=== PATIENT | female | born 1945 | race Caucasian/White ===

== ENCOUNTER 2018-08-23 14:12 | Emergency (ER) | payer MEDICARE, SELFPAY ==
[2018-08-23 14:13] VITALS: BP 176/89; PULSE 112; RESP 16; TEMP 37.2; O2SAT 98; BMI 43.9
--- NOTE | 2018-08-23 15:26 | ED.VISSUMM ---
- ER Visit Summary Date of Service: 08/23/18 Chief Complaint: Atraumatic left proximal medial calf swelling and discomfort History of Present Illness: The patient is a 73 F currently on Plavix for CAD and cardiac stents. She is a diet-controlled diabetic with stage III renal insufficiency. Patient states for the last 2 days she has had discomfort in her left calf and swelling. She denies any fever or chills. She denies any redness. She has had no trauma. She is never had a DVT or PE. She denies any recent travel, surgery or immobilization. States that she is not very active due to degenerative knee arthritis. Physical Examination: Older female no acute distress. Family present in the room. Pulse ox 90% on room air. No hypoxia. H EENT exam unremarkable. Neck nontender. Lungs clear to auscultation bilaterally. Heart regular rhythm rate about 100 no murmur. Abdomen is soft and nontender. She is moving all 4 extremities. She has normal motor strength. She has chronic decreased sensation in her feet from diabetic neuropathies. Her left proximal medial calf is mildly swollen with edematous tissue. There is no redness. There is no warmth. It is not significantly tender. There is no signs of cellulitis. There is no lymphangitic streaking. The knee itself is nontender. The left ankle is nontender. There are no cords. Right lower extremity is unremarkable. The left lower extremity is larger than the right. Neurologically she is awake and alert with no focal motor deficits. Test Results: Patient needs a noninvasive study of her left lower extremity. I have unable to obtain that at this time. She will be set up to have that done tomorrow morning. She is currently on Plavix I do not want to add any other anticoagulation as I feel that the likelihood of this being a DVT is as likely as it being hematoma or edema. Also the swelling is below the knee. Emergency Department Course and Treatment: Follow-up tomorrow for outpatient noninvasive study of the left lower extremity to evaluate for possible DVT versus other etiology. Treatment Plan: Continue her current medications including her Plavix. I do not want to start on any other anticoagulation until we have a definitive diagnosis. Disposition: Discharge Impression: Acute left lower extremity swelling of uncertain etiology Rule out DVT pending noninvasive study on Friday History of diet-controlled diabetes, coronary disease and stage III renal insufficiency This note was generated with Dragon dictation software. It may contain incorrect words, spelling, and punctuation that were not noted in review of the chart prior to signing ED Disposition - Plan for ED Patient: Chief Complaint: Lower Extremity Injury Referrals: Rocío Art MD [Primary Care Provider] -
--- NOTE | 2018-08-23 15:32 | ED.DEP ---
ED Disposition - Plan for ED Patient: Disposition: Home or Assisted Living Chief Complaint: Lower Extremity Injury Instructions: ED DVT Referrals: Rocío Art MD [Primary Care Provider] - As Needed Additional Instructions: Vascular lab will call you in the morning to set up time to have a noninvasive study (ultrasound) of your left lower extremity tomorrow morning to evaluate your leg for possible DVT. This could also be secondary to a bruise or just fluid collection. Continue your current medications including her Plavix. Return if you develop chest pain or severe shortness of breath.
--- NOTE | 2018-08-23 15:54 | ED.RN ---
attempted to call pt for dc instructions. no answer
== END 2018-08-23 15:53 | disposition home or self-care (01) ==
PROVIDERS: Emergency Provider Emergency Medicine; Family Provider Internal Medicine; PCP Internal Medicine
DX: R60.0 Localized edema (principal); M79.662 Pain in left lower leg; E11.22 Type 2 diabetes mellitus with diabetic chronic kidney disease; I12.9 Hypertensive chronic kidney disease with stage 1 through stage 4 chronic kidney disease, or unspecified chronic kidney disease; N18.3 Chronic kidney disease, stage 3 (moderate); I25.10 Atherosclerotic heart disease of native coronary artery without angina pectoris; E11.40 Type 2 diabetes mellitus with diabetic neuropathy, unspecified; M10.9 Gout, unspecified; I25.2 Old myocardial infarction; Z95.5 Presence of coronary angioplasty implant and graft; Z79.02 Long term (current) use of antithrombotics/antiplatelets; Z79.82 Long term (current) use of aspirin; Z79.899 Other long term (current) drug therapy
CPT/HCPCS: 99282

== ENCOUNTER → 2018-08-24 10:59 | Outpatient (CLI) | payer MEDICARE, SELFPAY ==
--- NOTE | 2018-08-24 11:02 | VDLE_ITS ---
Reason For Study: LEG SWELLING RIGHT LEFT CFV is compressible, spontaneous, phasic, GSV is normal. competent and demonstrates normal CFV is compressible, spontaneous, phasic, augmentation. competent, and demonstrates normal Procedure augmentation. Exam performed in department. FV is compressible, spontaneous, phasic, Technically difficult due to body habitus. competent and demonstrates normal A preliminary report was called and/or faxed augmentation. to Dr. Art. POP V is compressible, spontaneous, phasic, competent and demonstrates normal augmentation. T/P Trunk is compressible. PTV is compressible. Heterogenous structure noted lt medial pop space extending to prox calf. Non-vascular. Measures 4.9 x 2.4 cm in transverse view. Interpretation Summary Left greater saphenous vein appears patent and compressible segmentally. There is no evidence of left lower extremity deep vein thrombosis. Left popliteal space 4.86 x 2.41cm structure without vascular flow Clinical correlation would be appropriate Normal flow right common femoral vein Ordering Physician: Juan Miguel Caputo Referring Physician: Rocío Art Performed By: Kira Vazquez RVT
== END ==
PROVIDERS: Family Provider Internal Medicine; PCP Internal Medicine; Referring Provider Emergency Medicine; Visit Provider Emergency Medicine
DX: M79.89 Other specified soft tissue disorders (principal)
CPT/HCPCS: 93971

== ENCOUNTER → 2018-09-03 09:34 | Outpatient (CLI) | payer MEDICARE, SELFPAY ==
--- NOTE | 2018-09-03 09:38 | US_ITS ---
STUDY: SUPERFICIAL ULTRASOUND - LEFT MEDIAL CALF. REASON FOR EXAM: Female, 73 years old. Mass or lump. TECHNIQUE: A superficial ultrasound was performed with real-time and static roger-scale imaging. # of Images: 40 COMPARISON: None. FINDINGS: Ultrasound in the area of clinical concern shows a relatively anechoic focal area with some internal echoes, measuring 13.0 x 6.4 x 3.0 cm. The ultrasound appearance is nonspecific. Seroma is a possibility. A dissecting popliteal cyst is a possibility. Abscess is not excluded but unlikely. Consider MRI for further evaluation. Electronically Signed: Grady Vieira MD at 17:08 EDT , Service support , US/Ext Non Vasc Limited/Soft Tiss
== END ==
PROVIDERS: Family Provider Internal Medicine; PCP Internal Medicine; Referring Provider Nurse Practitioner Primary Care; Visit Provider Nurse Practitioner Primary Care
DX: M79.605 Pain in left leg (principal); M79.89 Other specified soft tissue disorders
CPT/HCPCS: 76882

== ENCOUNTER 2019-01-01 09:27 | Observation (INO) | payer MEDICARE, SELFPAY ==
[2019-01-01] VITALS (11 sets, daily range): BP systolic 143–163; BP diastolic 76–86; PULSE 69–99; RESP 16–21; TEMP 36.6–36.9; O2SAT 94–100; BMI 40.3; BMI 38.7; BMI 38.8
--- NOTE | 2019-01-01 09:59 | CT_ITS ---
STUDY: CT BRAIN WITHOUT CONTRAST REASON FOR EXAM: Female, 73 years old. Dizziness. RADIATION DOSAGE (If Supplied By Facility): CTDIvol = ( 44.99 ) mGy, DLP = ( 812.98 ) mGycm TECHNIQUE: Transaxial CT imaging of the brain was performed without administration of intravenous contrast material. Multiplanar reformations are submitted for interpretation. Individualized dose optimization techniques were used for this CT. COMPARISON: None. FINDINGS: There are multiple punctate calcifications within the dermis of the face. Normal calvarium. There is mild cerebral atrophy with widening of the extra-axial spaces and ventricular dilatation. There are areas of decreased attenuation within the white matter tracts of the supratentorial brain, consistent with microvascular disease changes. There are small punctate calcifications of the basal ganglia which are seen in the aging brain as a normal variant. Normal brainstem. Normal cerebellum. There is no intracranial hemorrhage. There are no findings of an acute ischemic infarction. There is moderate mucoperiosteal thickening present in bilateral maxillary sinuses. There is opacification of several ethmoid sinuses. CT/Brain/Head without Contrast IMPRESSION: 1. Chronic involutional changes of the brain. 2. No CT evidence of acute intracranial hemorrhage. Electronically Signed: Daina Henderson MD at 11:10 EST , Service support ,
--- NOTE | 2019-01-01 10:00 | EKG12_ITS ---
Test Reason : DIZZINESS Blood Pressure : / mmHG Vent. Rate : 059 BPM Atrial Rate : 059 BPM P-R Int : 178 ms QRS Dur : 090 ms QT Int : 414 ms P-R-T Axes : 041 000 050 degrees QTc Int : 409 ms Sinus bradycardia Low voltage QRS Cannot rule out Inferior infarct , age undetermined Cannot rule out Anterior infarct , age undetermined Abnormal ECG Confirmed by DONYA MOELLER, LACHO ([id number]), book or script editor UMESH CHAVARRIA ([id number]) on 01/05/2019 11:34:33 AM Referred By: Kyree Montiel Confirmed By:LACHO NAQVI MD
[2019-01-01 10:11] LABS: Absolute Lymphocyte Count 1.31 X10^3/ul (0.83-4.51); Absolute Neutrophil Count 8.4 X10^3/uL (2.0-7.7); Basophil# 0.02 X10^3/uL; Basophil% 0.2 % (0-1); Eosinophil# 0.15 X10^3/uL; Eosinophils% 1.4 % (0-5); Hematocrit 35.4 % (37-47); Hemoglobin 11.5 g/dl (12.0-15.0); Lymphocyte # 1.31 X10^3/ul (4.0); Lymphocyte % 12.6 % (19-41); Mean Corp Hgb Conc 32.5 g/gl (32-36); Mean Corpuscular Hgb 32.4 pg (27.0-32.0); Mean Corpuscular Volume 99.7 fL (81-99); Mean Platelet Vol. 9.3 fl (6.2-12.0); Monocyte% 3.9 % (0-10); Neutrophil # 8.44 X10^3/uL (2.7-7.7); Neutrophil % 81.4 % (47-70); Platelet Count 205 K/mm3 (150-450); RBC Distribution Width CV 15.7 % (11.6-14.6); RBC Distribution Width SD 57.2 fl (35.1-43.9); Red Blood Count 3.55 M/mm3 (4.2-5.4); White Blood Count 10.4 K/mm3 (4.4-11.0)
[2019-01-01 10:12] LABS: POSITIVE COUNT NO; POSITIVE DIFFERENTIAL NO; POSITIVE MORPHOLOGY NO
[2019-01-01 10:21] LABS: Anion Gap 10 (5-15); BUN 26 mg/dL (7-18); BUN/Creat Ratio 18.7 RATIO (10-20); Calcium,Total 9.1 mg/dL (8.5-10.1); Chloride 104 mmol/L (98-107); Creatinine, Serum 1.39 mg/dL (0.55-1.02); EST Glomerular Filtration Rate 39 mL/min (>60); Est Glom Filt Rate - Afr Amer 48 mL/min (>60); Estimated Creatinine Clearance 32.74 ml/min; Glucose 167 mg/dL (74-106); Potassium 4.2 mmol/L (3.5-5.1); Sodium Level 139 mmol/L (136-145)
[2019-01-01] MEDS: 0.9% Normal Saline 1,000 ML 150 ML IV (10:26)
[2019-01-01] MEDS: diazePAM 2 MG Tablet PO (10:26)
--- NOTE | 2019-01-01 11:26 | PCM.HP.STD ---
Problem List (1) Dizziness Status: Acute (2) Essential hypertension Status: Chronic (3) Dyslipidemia Status: Chronic (4) Hypothyroidism Status: Chronic History of Present Illness Date of Admission: 01/01/19 Chief Complaint: Dizziness The patient is a 73 year old F with past medical history is again for hypertension, dyslipidemia, hypothyroidism who presented with dizziness. Patient symptoms started on the morning of her presentation. She woke up with her symptoms. She described her dizziness as spinning sensation. Patient in addition did complain of nausea she denied any falls. She finally called the squad was brought to the emergency department. In the ED CT of the head obtained was unremarkable with patient still remain asymptomatic decision was made to admit patient for subsequent evaluation in the hospital. Past Medical History Past Medical History (Chronic Problems): Chronic Problems Essential hypertension (Chronic) Dyslipidemia (Chronic) Hypothyroidism (Chronic) Allergies Penicillins Allergy (Verified 01/01/19 09:30) Swelling meperidine [From Demerol] Adverse Reaction (Verified 01/01/19 09:30) Vomiting SODIUM PENTATHAL Adverse Reaction (Uncoded 01/01/19 09:30) Vomiting Home Medications: Ambulatory Orders Medication Instructions Recorded Allopurinol [Zyloprim] 300 mg PO DAILY 08/12/16 Aspirin E.C. [Ecotrin] 81 mg PO DAILY@0800 08/12/16 Atorvastatin Calcium [Lipitor] 80 mg PO QHS 08/12/16 Clopidogrel Bisulfate [Plavix] 75 mg PO DAILY 08/12/16 Hydrochlorothiazide [Hctz] 25 mg PO DAILY 08/12/16 Levothyroxine [Synthroid] 125 mcg PO DAILY 08/12/16 Lisinopril [Zestril] 40 mg PO DAILY 08/12/16 Multivit-Min/Iron/Folic/Lutein 1 each PO DAILY 08/12/16 [Centrum Silver Women Tablet] Nitroglycerin [Nitrostat] 0.4 mg SUBLINGUAL Q5M PRN 08/12/16 Oxybutynin [Ditropan] 5 mg PO DAILY 08/12/16 Clindamycin [Cleocin] 150 mg PO UD 01/01/19 Metoprolol Succinate [Toprol Xl] 25 mg PO DAILY 01/01/19 [place]-3/Dha/Epa/Fish Oil [[place] 3 500 - 1,000 mg PO DAILY 01/01/19 500 Softgel] Ubidecarenone [Co Q-10] 75 mg PO DAILY 01/01/19 Smoking Status: Never smoker - *Family History Paternal History Items: Cancer - of colon cancer Review of Systems Constitutional: Denies: Anorexia, Chills, Fever, Night Sweats, Weight Change HEENT: Denies: Head Aches, Sinus Congestion, Sinus Drainage Cardiovascular: Denies: Chest Pain, Orthopnea, Palpitations, Paroxysmal Noc. Dyspnea Respiratory: Denies: Cough, Shortness of breath at rest, Shortness of breath upon exertion, Sputum production Gastrointestinal: Denies: Abdominal Pain, Hematemesis, Hematochezia, Nausea, Melena, Vomiting Genitourinary: Denies: Dysuria, Frequency, Hematuria, Urgency Musculoskeletal: Denies: Joint Pain, Joint Tenderness Skin: Denies: Rash Neurological: Reports: Balance problems. Denies: Focal weakness, Numbness, Tingling Psychiatric: Denies: Homicidal Ideations, Suicidal Ideations Hematologic/ Lymphatic: Denies: Easy Bruising, Easy Bleeding VTE Information - Inpt Only VTE Present on Admission: No VTE Mechan Device Prophylaxis: Knee High GILBERT Hose VTE Pharm Prophylaxis ordered?: Yes Patient Problems: Active and Suspected Problems Dizziness (Acute) Objective: GENERAL: Cooperative in no distress HEENT: Atraumatic; moist oral mucosa EYES; Anicteric, Normal Conjunctiva NECK; supple, normal thyroid, no distended JVD. RESPIRATORY: Diminished to auscultation bilaterally, CARDIOVASCULAR: Regular S1 S2, no audible murmurs GI: soft, non-tender, normoactive bowel sounds, : No Renal angle tenderness; EXTREMITIES: No edema, no clubbing, no cyanosis. MUSCULOSKELETAL: No Joint Tenderness; no muscle waisting NEURO: Awake; no lateralizing signs. SKIN: No Rash PSYCH; affect is flat - Physical Exam Vital Signs Temp Pulse Resp BP Pulse Ox 98.3 F 79 17 163/79 H 99 01/01/19 09:28 01/01/19 09:28 01/01/19 09:28 01/01/19 09:28 01/01/19 09:28 Oxygen Delivery Method Room Air Weight: 113.398 kg Body Mass Index (BMI) 40.3 Laboratory Tests Past 24 Hrs 01/01/19 01/01/19 09:45 09:45 WBC 10.4 RBC 3.55 L Hgb 11.5 L Hct 35.4 L MCV 99.7 H MCH 32.4 H MCHC 32.5 RDW 15.7 H RDW Differential 57.2 H Plt Count 205 MPV 9.3 Immature Gran % (Auto) 0.500 Neut % (Auto) 81.4 H Lymph % (Auto) 12.6 L [place] % (Auto) 3.9 Eos % (Auto) 1.4 Baso % (Auto) 0.2 Absolute Neuts (auto) 8.4 H Absolute Lymphs (auto) 1.31 Total Counted Not Reportable Sodium 139 Potassium 4.2 Chloride 104 Carbon Dioxide 25.0 Anion Gap 10 BUN 26 H Creatinine 1.39 H Estim Creat Clear Calc 32.74 Est GFR (MDRD) Af Amer 48 L Est GFR (MDRD) Non-Af 39 L BUN/Creatinine Ratio 18.7 Glucose 167 H Calcium 9.1 Troponin I < 0.015 Assessment/Plan All Active Problems Dizziness (Acute) Patient is a 73-year-old lady with multiple comorbidities presented with dizziness 1. Dizziness: Patient has been admitted to monitored bed. Did initiate every 4 neuro checks. Ordered MRI of the brain to rule out posterior seclusion CVA. Also did order 2D echo as well as carotid ultrasound; also did request orthostatics acute for 2. Renal failure patient baseline creatinine unknown started on IV fluids with monitoring of electrolyte 3. Hypothyroidism-patient is on levothyroxine home dose continued 4. Hypertension-blood pressure controlled, home medications continued with dose adjustment as needed 5. Dyslipidemia-patient is on statin therapy, continued at home dose 6. DVT prophylaxis SC Lovenox 7. Obesity with BMI of 38.8 weight loss advised Code Visit OBSV E&M: 98157 Initial observation care L3
--- NOTE | 2019-01-01 11:29 | ED.DCSUM_ITS ---
- ER Visit Summary Date of Service: 01/01/19 Chief Complaint: [Dizziness] History of Present Illness: The patient is a 73 F [presents the emergency department complaint of dizziness that started this morning around 6:50 AM when she woke up. Patient states that she was dizzy while still in bed and did not f eel comfortable trying to stand or walk. She called for her and did not feel comfortable attempting to ambulate with his help. Patient normally uses a walker to ambulate. Patient describes spinning-like sensation and nausea. She has not vomited. She denies any falls or head injuries. She denies any focal weakness. She is never had symptoms like this before. She denies recent illnes s.] Physical Examination: [HEENT-PERRLA, EOMI. Cranial nerves II through XII grossly intact. TMs clear. Mucous membranes moist. No adenopathy. Cardiovascular-regular rate and rhythm without murmur or ectopy Lungs-clear to auscultation, chest wall stable without crepitus or subcu emphysema Abdomen-normoactive bowel sounds, soft, nontender, no rebound or rigidity, no peritoneal signs. Neuro shvc-gtiknl-ohav and heel reese testing within normal limits, negative Romberg, negative pronator drift, fundi benign. Hallpike was negative. Extremities-intact ?4, normal range of motion, normal pulses, atraumatic] Test Results: [CBC with differential obtained showed a white count 10.4, hemoglobin 11.5, hematocrit 35, placed 205. Chemistries unremarkable. Troponin was less than 0.015. EKG obtained shows sinus rhythm with a ventricular rate of [address] scan of the brain without contrast showed chronic changes otherwise nothing acute.] Emergency Department Course and Treatment: [Patient was given Valium 2 mg p.o. and she continued to complain of dizziness and is unable to stand or ambulate.] Treatment Plan: [Admit for further workup and treatment] Disposition: [Admit] Impression: [Dizziness Inability to ambulate] This note was generated with [employer] dictation software. It may contain incorrect words, spelling, and punctuation that were not noted in review of the chart prior to signing ED Disposition - Plan for ED Patient: Referrals: Rocío Art MD [Primary Care Provider] -
[2019-01-01 11:59] LABS: Bacteria 0 SEEN /hpf (None Seen); Mucous, Urine 0 SEEN /hpf (<or=2+)
[2019-01-01 12:04] LABS: Color, Urine Yellow (Yellow); Glucose, Dipstick Normal (Normal); Ketone-Dipstick Negative (Negative); Leukocyte Esterase-Dipstick 25 /ul (Negative); Nitrite-Dipstick Negative (Negative); Occult Blood-Urine 25 /ul (Negative); Protein-Dipstick Negative (Negative); Urine Bilirubin Dipstick Negative (Negative); Urine Clarity Clear (Clear); Urine Urobilinogen Normal (Normal)
[2019-01-01 12:27] LABS: Red Blood Cells-Urine 0-5 SEEN /hpf (0-5); Squamous Epithelial Cells - UA 0-5 SEEN /hpf (5-10); White Blood Cells 0-5 SEEN /hpf (0-5)
--- NOTE | 2019-01-01 14:15 | ECHOCS_ITS ---
Reason For Study: TIA/CVA Procedure This was a 2D Doppler, Color Flow transthoracic echocardiogram. Exam performed portable in patient room. Left Ventricle Normal LV size. Left ventricular systolic function is normal. The estimated ejection fraction is 70 %. Stage 1 diastolic dysfunction. [place] : Severely Hypokinetic. Right Ventricle Normal RV size. Normal systolic function. Atria Normal left atrium. Normal right atrium. Mitral Valve Normal mitral valve. Tricuspid Valve Normal tricuspid valve. Mild (1+) tricuspid valve insufficiency. Pulmonary artery systolic pressure is 38 mmHg. Aortic Valve The aortic valve is not well visualized. Pulmonic Valve The pulmonic valve is not well visualized. Great Vessels Normal aortic root. The pulmonary artery is normal size. Pericardium/Pleural No pericardial effusion. Medication Diluted definity 5ml given slow IV push to enhance endocardial definition. Performed a rapid injection of agitated mix of 9 cc saline and 1cc air to assess for atrial septal defect. MMode/2D Measurements & Calculations LVIDd: 4.2 cm IVSd: 1.5 cm Ao root diam: 2.9 cm LVIDs: 2.4 cm LVPWd: 1.1 cm LA dimension: 4.1 cm RVDd: 3.0 cm FS: 43.0 % LAV(MOD-bp): 51.6 ml LA A4 area: 18.0 cm2 RA A4 area: 15.5 cm2 LAV(MOD-bp) Indexed: 23.5 ml/m2 LAV(MOD-sp2): 51.9 ml LAV(MOD-sp4): 46.4 ml Time Measurements MV dec time: 0.22 sec Doppler Measurements & Calculations MV E max brian: 79.9 cm/sec Lat Peak E' Brian: 14.9 cm/sec Med Peak E' Brian: 6.8 cm/sec MV A max brian: 93.5 cm/sec E/E' lat: 5.4 E/E' med: 11.8 MV E/A: 0.85 MV V2 max: 80.2 cm/sec MV P1/2t max brian: 71.8 cm/sec Ao V2 max: 138.0 cm/sec MV max P.6 mmHg MV P1/2t: 77.0 msec Ao max P.6 mmHg MV V2 mean: 50.0 cm/sec MV dec slope: 273.3 cm/sec2 MV mean P.1 mmHg MV V2 VTI: 20.1 cm MVA(P1/2t): 2.9 cm2 LV V1 max: 123.1 cm/sec PA V2 max: 130.0 cm/sec TR max brian: 287.6 cm/sec LV V1 max P.1 mmHg TR max P.1 mmHg Interpretation Summary Normal LV size. Left ventricular systolic function is normal. The estimated ejection fraction is 70 %. Stage 1 diastolic dysfunction. Mild (1+) tricuspid valve insufficiency. Pulmonary artery systolic pressure is 38 mmHg. Contrast injection was performed. Ordering Physician: Kyree Montiel Referring Physician: Kyree Montiel Performed By: Fabricio Carson RCS
--- NOTE | 2019-01-01 14:15 | CDU_ITS ---
Reason For Study: CVA Rt. Velocities/BP Lt. Velocities/BP Prox CCA 91.5/14.1 cm/sec. Prox CCA 86.2/18.8 cm/sec. Mid CCA 71.5/18.2 cm/sec. Mid CCA 89.1/22.3 cm/sec. Dist CCA 69.2/14.7 cm/sec. Dist CCA 101/32.8 cm/sec. Prox ICA 52.2/19.3 cm/sec. Prox ICA 84.4/27.6 cm/sec. Mid ICA 70.4/27.0 cm/sec. Mid ICA 95.6/32.8 cm/sec. Dist ICA 84.4/32.2 cm/sec. Dist ICA 89.1/33.4 cm/sec. Rt. ICA/CCA = 1.2. Lt. ICA/CCA = 1.1. Prox ECA 70.9/9.97 cm/sec. Prox ECA 107/22.9 cm/sec. Rt. Vert. 41.0/10.6 cm/sec. Lt. Vert. 65.1/22.3 cm/sec. Right Extracranial There is intimal thickening but no significant atherosclerotic plaque noted in the right common carotid artery. There is heterogeneous, irregular atherosclerotic plaque noted in the right internal carotid artery. There is heterogeneous, irregular atherosclerotic plaque noted in the right external carotid artery. Antegrade flow is noted in the right vertebral artery. Left Extracranial There is intimal thickening but no significant atherosclerotic plaque noted in the left common carotid artery. There is heterogeneous, irregular atherosclerotic plaque noted in the left internal carotid artery. There is intimal thickening but no significant atherosclerotic plaque noted in the left external carotid artery. Antegrade flow is noted in the left vertebral artery. Procedure Carotid Duplex 57105. The exam was diagnostic. Exam performed portable in patient room. Interpretation Summary Mild (<50%) stenosis right extracranial internal carotid. Mild (<50%) stenosis left extracranial internal carotid. Flow within the vertebral arteries is antegrade bilaterally. Ordering Physician: Kyree Montiel Performed By: Jayden Ramsey RVT
--- NOTE | 2019-01-01 14:15 | MRI_ITS ---
STUDY: MRI BRAIN WITHOUT CONTRAST REASON FOR EXAM: Female, 73 years old. Dizziness, nausea vomiting. TECHNIQUE: Standardized multiplanar fat and water weighted pulse sequences were obtained. COMPARISON: None. FINDINGS: Normal size of the ventricles and extra-axial spaces for the patient's age. There are a limited number of small white matter hyperintensities, distributed throughout the deep white matter tracts of the cerebral hemispheres, consistent with mild chronic white matter ischemic changes. Focal hemosiderin deposit in the right frontal roger-white junction is consistent with a small angioma or remote punctate hemorrhage. There are prominent perivascular spaces (PVS) involving the basal ganglia. Normal thalami. There is no extra-axial fluid accumulation. Normal flow voids within the major intracranial circulation suggesting patency by spin echo criteria. Normal sella turcica, pituitary gland, infundibular stalk, optic chiasm and hypothalamus. Normal tectal plate and pineal gland. Normal midbrain, rosangela and medulla. Normal cerebellum. Normal basal cisterns. Normal bilateral temporal bones. Normal bilateral internal auditory canals. No demonstrated orbital abnormality, within the constraints of a routine brain study. There is mild mucosal thickening in the maxillary sinuses bilaterally. Normal calvarium and skull base. Normal visualized soft tissue structures. Normal visualized upper cervical spine. MRI/Brain without Contrast IMPRESSION: 1. No acute process. 2. Trace microvascular ischemic changes. 3. Small right frontal angioma versus remote punctate hemorrhage. 4. Mild chronic sinusitis. Electronically Signed: Manuela Borden MD at 16:32 EST Tel , Service support ,
[2019-01-01] MEDS: Atorvastatin Calcium 80 MG Tablet PO (22:37)
[2019-01-02] VITALS (13 sets, daily range): BP systolic 118–164; BP diastolic 57–85; PULSE 70–98; RESP 16–22; TEMP 36.6–37; O2SAT 95–98; BMI 38.7
[2019-01-02] MEDS: Levothyroxine 125 MCG Tablet PO (05:48)
[2019-01-02 07:01] LABS: BUN 24 mg/dL (7-18); Creatinine, Serum 1.15 mg/dL (0.55-1.02); EST Glomerular Filtration Rate 49 mL/min (>60); Estimated Creatinine Clearance 38.03 ml/min; Glucose 119 mg/dL (74-106)
[2019-01-02 07:02] LABS: Anion Gap 6 (5-15); BUN/Creat Ratio 20.9 RATIO (10-20); Calcium,Total 8.8 mg/dL (8.5-10.1); Chloride 105 mmol/L (98-107); Cholesterol 127 mg/dL (200); Est Glom Filt Rate - Afr Amer 59 mL/min (>60); High Density Lipoprotein 45 mg/dL; Potassium 3.7 mmol/L (3.5-5.1); Sodium Level 138 mmol/L (136-145); Triglycerides 195 mg/dL; Very Low Density Lipoprotein 39 mg/dL (5-40)
[2019-01-02] MEDS: Allopurinol 300 MG Tablet PO (10:12)
[2019-01-02] MEDS: Tolterodine Tartrate 2 MG CAP.SA PO (10:12)
[2019-01-02] MEDS: Metoprolol(XL)Succ 25 MG Tablet PO (10:12)
[2019-01-02] MEDS: Lisinopril 40 MG Tablet PO (10:12)
[2019-01-02] MEDS: hydroCHLOROthiazide 25 MG Tablet PO (10:12)
--- NOTE | 2019-01-02 11:25 | PCM.PN.HOSP ---
Patient Problems: Active and Suspected Problems Dizziness (Acute) Subjective: Patient is a 73-year-old lady with multiple comorbidities presented with dizziness patient was admitted to monitored bed as part of her evaluation and MRI of the brain was ordered which demonstrated no grossly acute process however there was a mention of small right frontal angioma versus remote punctate hemorrhage which should not explain for patient dizziness. Consultation was placed to neurology Objective: GENERAL: Cooperative in no distress HEENT: Atraumatic; moist oral mucosa EYES; Anicteric, Normal Conjunctiva NECK; supple, normal thyroid, no distended JVD. RESPIRATORY: Diminished to auscultation bilaterally, CARDIOVASCULAR: Regular S1 S2, no audible murmurs GI: soft, non-tender, normoactive bowel sounds, : No Renal angle tenderness; EXTREMITIES: No edema, no clubbing, no cyanosis. MUSCULOSKELETAL: No Joint Tenderness; no muscle waisting NEURO: Awake; no lateralizing signs. SKIN: No Rash PSYCH; affect is flat Vitals/I&O's: Vital Signs Temp Pulse Resp BP Pulse Ox 98.2 F 75 22 H 143/85 H 97 01/02/19 10:00 01/02/19 10:12 01/02/19 10:00 01/02/19 10:00 01/02/19 10:00 Oxygen Delivery Method Room Air Weight: 105.687 kg Body Mass Index (BMI) 38.7 Intake and Output for Last 24 Hours 12/31/18 01/01/19 01/02/19 23:59 23:59 23:59 Intake Total 700 / 700 120 / 120 Output Total 1050 / 1050 400 / 400 Balance -350 / -350 -280 / -280 Laboratory Results 01/01/19 11:45: Urine Color Yellow, Urine Clarity Clear, Urine pH 6.0, Ur Specific [place] 1.010, Urine Protein Negative, Urine Glucose (UA) Normal, Urine Ketones Negative, Urine Occult Blood 25 H, Urine Nitrite Negative, Urine Bilirubin Negative, Urine Urobilinogen Normal, Ur Leukocyte Esterase 25 H, Urine RBC 0-5 SEEN, Urine WBC 0-5 SEEN, Ur Squamous Epith Cells 0-5 SEEN, Urine Bacteria 0 SEEN, Urine Mucus 0 SEEN 01/01/19 14:40: Troponin I < 0.015 01/01/19 17:14: Troponin I < 0.015 01/01/19 21:10: Troponin I < 0.015 01/02/19 06:16: Sodium 138, Potassium 3.7, Chloride 105, Carbon Dioxide 27.0, Anion Gap 6, BUN 24 H, Creatinine 1.15 H, Estim Creat Clear Calc 38.03, Est GFR (MDRD) Af Amer 59 L, Est GFR (MDRD) Non-Af 49 L, BUN/Creatinine Ratio 20.9 H, Glucose 119 H, Calcium 8.8, Triglycerides 195, Cholesterol 127, LDL Cholesterol 43, VLDL Cholesterol 39, HDL Cholesterol 45 Current Medications Acetaminophen (Tylenol) 650 mg PO Q6H PRN PRN PRN Reason: Mild Pain (1-3)/Temp > 100.7 F Allopurinol (Zyloprim) 300 mg PO DAILY [facility] Last Admin: 01/02/19 10:12 Dose: 300 mg Atorvastatin Calcium (Lipitor) 80 mg PO QHS [facility] Last Admin: 01/01/19 22:37 Dose: 80 mg Bisacodyl (Dulcolax) 5 mg PO DAILY PRN PRN PRN Reason: Constipation Clopidogrel Bisulfate (Plavix) 75 mg PO DAILY [facility] Last Admin: 01/02/19 10:14 Dose: Not Given Hydrochlorothiazide (Hctz) 25 mg PO DAILY [facility] Last Admin: 01/02/19 10:12 Dose: 25 mg Levothyroxine Sodium (Synthroid) 125 mcg PO DAILY@0600 [facility] Last Admin: 01/02/19 05:48 Dose: 125 mcg Lisinopril (Zestril) 40 mg PO DAILY [facility] Last Admin: 01/02/19 10:12 Dose: 40 mg Magnesium Hydroxide (Milk Of Magnesia) 30 ml PO DAILY PRN PRN Reason: Constipation Metoprolol Succinate (Toprol Xl (Beta Yves)) 25 mg PO DAILY [facility] Last Admin: 01/02/19 10:12 Dose: 25 mg Nitroglycerin (Nitrostat) 0.4 mg SUBLINGUAL Q5M PRN PRN Reason: Chest Pain Promethazine HCl (Phenergan) 12.5 mg IM Q4H PRN PRN PRN Reason: NAUSEA/VOMITING Psyllium Hydrophilic Mucilloid (Metamucil) 1 packet PO DAILY PRN PRN PRN Reason: CONSTIPATION Tolterodine Tartrate (Detrol La) 2 mg PO DAILY [facility] Last Admin: 01/02/19 10:12 Dose: 2 mg Medical Necessity - Tobacco Use Smoking Status: Never smoker Assessment/Plan All Active Problems Dizziness (Acute) Patient is a 73-year-old lady with multiple comorbidities presented with dizziness 1. Dizziness: Patient has been admitted to monitored bed. Did initiate every 4 neuro checks. Ordered MRI of the brain to rule out posterior seclusion CVA. Also did order 2D echo as well as carotid ultrasound; also did request orthostatics every shift.MRI of the brain was ordered which demonstrated no grossly acute process however there was a mention of small right frontal angioma versus remote punctate hemorrhage which should not explain for patient dizziness. Consultation was placed to neurology. Awaiting input. 2. Renal failure. Patient was started on IV hydration kidney function improving do suspect patient dizziness to be secondary to orthostatic hypotension from dehydration 3. Hypothyroidism-patient is on levothyroxine home dose continued 4. Hypertension-blood pressure controlled, home medications continued with dose adjustment as needed 5. Dyslipidemia-patient is on statin therapy, continued at home dose 6. DVT prophylaxis SC Lovenox 7. Obesity with BMI of 38.8 weight loss advised Clinical Impression(s) from Imaging Studies Brain CT 01/01/19 09:59 IMPRESSION: 1. Chronic involutional changes of the brain. 2. No CT evidence of acute intracranial hemorrhage. Electronically Signed: Daina Henderson MD at 11:10 EST , Service support , Brain MRI 01/01/19 14:15 IMPRESSION: 1. No acute process. 2. Trace microvascular ischemic changes. 3. Small right frontal angioma versus remote punctate hemorrhage. 4. Mild chronic sinusitis. Electronically Signed: Manuela Borden MD at 16:32 EST Tel , Service support , Code Visit OBSV E&M: [id number] Subsequent observation care L3
--- NOTE | 2019-01-02 11:29 | PN_ITS ---
Patient Problems: Active and Suspected Problems Dizziness (Acute) Subjective: Patient is a 73-year-old lady with multiple comorbidities presented with dizziness patient was admitted to monitored bed as part of her evaluation and MRI of the brain was ordered which demonstrated no grossly acute process however there was a mention of small right frontal angioma versus remote punctate hemorrhage which should not explain for patient dizziness. Consultation was placed to neurology Objective: GENERAL: Cooperative in no distress HEENT: Atraumatic; moist oral mucosa EYES; Anicteric, Normal Conjunctiva NECK; supple, normal thyroid, no distended JVD. RESPIRATORY: Diminished to auscultation bilaterally, CARDIOVASCULAR: Regular S1 S2, no audible murmurs GI: soft, non-tender, normoactive bowel sounds, : No Renal angle tenderness; EXTREMITIES: No edema, no clubbing, no cyanosis. MUSCULOSKELETAL: No Joint Tenderness; no muscle waisting NEURO: Awake; no lateralizing signs. SKIN: No Rash PSYCH; affect is flat Vitals/I&O's: Vital Signs Temp Pulse Resp BP Pulse Ox 98.2 F 75 22 H 143/85 H 97 01/02/19 10:00 01/02/19 10:12 01/02/19 10:00 01/02/19 10:00 01/02/19 10:00 Oxygen Delivery Method Room Air Weight: 105.687 kg Body Mass Index (BMI) 38.7 Intake and Output for Last 24 Hours 12/31/18 01/01/19 01/02/19 23:59 23:59 23:59 Intake Total 700 / 700 120 / 120 Output Total 1050 / 1050 400 / 400 Balance -350 / -350 -280 / -280 Laboratory Results 01/01/19 11:45: Urine Color Yellow, Urine Clarity Clear, Urine pH 6.0, Ur Specific [place] 1.010, Urine Protein Negative, Urine Glucose (UA) Normal, Urine Ketones Negative, Urine Occult Blood 25 H, Urine Nitrite Negative, Urine Bilirubin Negative, Urine Urobilinogen Normal, Ur Leukocyte Esterase 25 H, Urine RBC 0-5 SEEN, Urine WBC 0-5 SEEN, Ur Squamous Epith Cells 0-5 SEEN, Urine Bacteria 0 SEEN, Urine Mucus 0 SEEN 01/01/19 14:40: Troponin I < 0.015 01/01/19 17:14: Troponin I < 0.015 01/01/19 21:10: Troponin I < 0.015 01/02/19 06:16: Sodium 138, Potassium 3.7, Chloride 105, Carbon Dioxide 27.0, Anion Gap 6, BUN 24 H, Creatinine 1.15 H, Estim Creat Clear Calc 38.03, Est GFR (MDRD) Af Amer 59 L, Est GFR (MDRD) Non-Af 49 L, BUN/Creatinine Ratio 20.9 H, Glucose 119 H, Calcium 8.8, Triglycerides 195, Cholesterol 127, LDL Cholesterol 43, VLDL Cholesterol 39, HDL Cholesterol 45 Current Medications Acetaminophen (Tylenol) 650 mg PO Q6H PRN PRN PRN Reason: Mild Pain (1-3)/Temp > 100.7 F Allopurinol (Zyloprim) 300 mg PO DAILY [facility] Last Admin: 01/02/19 10:12 Dose: 300 mg Atorvastatin Calcium (Lipitor) 80 mg PO QHS [facility] Last Admin: 01/01/19 22:37 Dose: 80 mg Bisacodyl (Dulcolax) 5 mg PO DAILY PRN PRN PRN Reason: Constipation Clopidogrel Bisulfate (Plavix) 75 mg PO DAILY [facility] Last Admin: 01/02/19 10:14 Dose: Not Given Hydrochlorothiazide (Hctz) 25 mg PO DAILY [facility] Last Admin: 01/02/19 10:12 Dose: 25 mg Levothyroxine Sodium (Synthroid) 125 mcg PO DAILY@0600 [facility] Last Admin: 01/02/19 05:48 Dose: 125 mcg Lisinopril (Zestril) 40 mg PO DAILY [facility] Last Admin: 01/02/19 10:12 Dose: 40 mg Magnesium Hydroxide (Milk Of Magnesia) 30 ml PO DAILY PRN PRN Reason: Constipation Metoprolol Succinate (Toprol Xl (Beta Yves)) 25 mg PO DAILY [facility] Last Admin: 01/02/19 10:12 Dose: 25 mg Nitroglycerin (Nitrostat) 0.4 mg SUBLINGUAL Q5M PRN PRN Reason: Chest Pain Promethazine HCl (Phenergan) 12.5 mg IM Q4H PRN PRN PRN Reason: NAUSEA/VOMITING Psyllium Hydrophilic Mucilloid (Metamucil) 1 packet PO DAILY PRN PRN PRN Reason: CONSTIPATION Tolterodine Tartrate (Detrol La) 2 mg PO DAILY [facility] Last Admin: 01/02/19 10:12 Dose: 2 mg Medical Necessity - Tobacco Use Smoking Status: Never smoker Assessment/Plan All Active Problems Dizziness (Acute) Patient is a 73-year-old lady with multiple comorbidities presented with dizziness 1. Dizziness: Patient has been admitted to monitored bed. Did initiate every 4 neuro checks. Ordered MRI of the brain to rule out posterior seclusion CVA. Also did order 2D echo as well as carotid ultrasound; also did request orthostatics every shift.MRI of the brain was ordered which demonstrated no grossly acute process however there was a mention of small right frontal angioma versus remote punctate hemorrhage which should not explain for patient dizziness. Consultation was placed to neurology. Awaiting input. 2. Renal failure. Patient was started on IV hydration kidney function improving do suspect patient dizziness to be secondary to orthostatic hypotension from dehydration 3. Hypothyroidism-patient is on levothyroxine home dose continued 4. Hypertension-blood pressure controlled, home medications continued with dose adjustment as needed 5. Dyslipidemia-patient is on statin therapy, continued at home dose 6. DVT prophylaxis SC Lovenox 7. Obesity with BMI of 38.8 weight loss advised Clinical Impression(s) from Imaging Studies Brain CT 01/01/19 09:59 IMPRESSION: 1. Chronic involutional changes of the brain. 2. No CT evidence of acute intracranial hemorrhage. Electronically Signed: Daina Henderson MD at 11:10 EST , Service support , Brain MRI 01/01/19 14:15 IMPRESSION: 1. No acute process. 2. Trace microvascular ischemic changes. 3. Small right frontal angioma versus remote punctate hemorrhage. 4. Mild chronic sinusitis. Electronically Signed: Manuela Borden MD at 16:32 EST Tel , Service support , Code Visit OBSV E&M: [id number] Subsequent observation care L3
--- NOTE | 2019-01-02 14:12 | NURSING ---
student nurse charting reviewed.
--- NOTE | 2019-01-02 14:15 | NURSING ---
student nurse charting reviewed.
--- NOTE | 2019-01-02 19:54 | CON.PCM_ITS ---
Problem List (1) Dizziness Status: Acute Reason for Consult Date of Consultation: 01/02/19 Reason for Consultation: Dizziness History of Present Illness: The patient is a 73 year old F with PMH HTN, HLD, CAD s/p stents, hypothyro idism, gout admitted with dizziness. Per patient she woke up yesterday morning (01/01/19) and felt dizzy, whole room was spinning, had balance issues, was later admitted to the hospital, per patient her dizziness has got much better, lasted for more than 24 hrs, denies any vomiting, falls,LI, focal motor weakness, visual disturbances, speech disturbances or sensory loss. Per patient she ambulates with walker, does not drive. Does complaint of tinnitus. Is on dual AP at baseline, per patient she had cardiac stents placed in 2007 and has been on dual AP since then. [] Past Medical History Past Medical History (Chronic Problems): Chronic Problems Essential hypertension (Chronic) Dyslipidemia (Chronic) Hypothyroidism (Chronic) Allergies Penicillins Allergy (Verified 01/01/19 09:30) Swelling meperidine [From Demerol] Adverse Reaction (Verified 01/01/19 09:30) Vomiting SODIUM PENTATHAL Adverse Reaction (Uncoded 01/01/19 09:30) Vomiting Home Medications: Ambulatory Orders Medication Instructions Recorded Allopurinol [Zyloprim] 300 mg PO DAILY 08/12/16 Aspirin E.C. [Ecotrin] 81 mg PO DAILY@0800 08/12/16 Atorvastatin Calcium [Lipitor] 80 mg PO QHS 08/12/16 Clopidogrel Bisulfate [Plavix] 75 mg PO DAILY 08/12/16 Hydrochlorothiazide [Hctz] 25 mg PO DAILY 08/12/16 Levothyroxine [Synthroid] 125 mcg PO DAILY 08/12/16 Lisinopril [Zestril] 40 mg PO DAILY 08/12/16 Multivit-Min/Iron/Folic/Lutein 1 each PO DAILY 08/12/16 [Centrum Silver Women Tablet] Nitroglycerin [Nitrostat] 0.4 mg SUBLINGUAL Q5M PRN 08/12/16 Clindamycin [Cleocin] 150 mg PO UD 01/01/19 Metoprolol Succinate [Toprol Xl] 25 mg PO DAILY 01/01/19 Delphia-3/Dha/Epa/Fish Oil [[place] 3 500 - 1,000 mg PO DAILY 01/01/19 500 Softgel] Oxybutynin Chloride [Oxybutynin 5 mg PO DAILY 01/01/19 Chloride ER] Ubidecarenone [Co Q-10] 75 mg PO DAILY 01/01/19 Smoking Status: Never smoker - *Family History Paternal History Items: Cancer - of colon cancer Review of Systems Constitutional: Reports: - - complete ROS negative except as documented in HPI Patient Problems: Active and Suspected Problems Dizziness (Acute) - Physical Exam General: Alert HEENT: Normocephalic Neck: Supple Lungs: Normal air movement Cardiovascular: Normal S1, Normal S2 Abdomen: Bowel Sounds Present Extremities: No cyanosis Neurological: - - consious, alert, AoA x3, CN 2-12 grossly intact, no nystagmus, power 5/5 all 4 extremities, no sensory loss, no cerebellar signs, Reflexes + B/L B/S/T/K/A, gait deferred Psych/Mental Status: Normal Affect Vital Signs Temp Pulse Resp BP Pulse Ox 98.0 F 79 16 128/70 H 95 01/02/19 17:00 01/02/19 19:03 01/02/19 17:00 01/02/19 17:00 01/02/19 17:00 Oxygen Delivery Method Room Air Weight: 105.687 kg Body Mass Index (BMI) 38.7 Intake and Output for Last 24 Hours 12/31/18 01/01/19 01/02/19 23:59 23:59 23:59 Intake Total 700 / 700 1880 / 1880 Output Total 1050 / 1050 1450 / 1450 Balance -350 / -350 430 / 430 Laboratory Tests Past 24 Hrs 01/01/19 01/02/19 21:10 06:16 Sodium 138 Potassium 3.7 Chloride 105 Carbon Dioxide 27.0 Anion Gap 6 BUN 24 H Creatinine 1.15 H Estim Creat Clear Calc 38.03 Est GFR (MDRD) Af Amer 59 L Est GFR (MDRD) Non-Af 49 L BUN/Creatinine Ratio 20.9 H Glucose 119 H Calcium 8.8 Troponin I < 0.015 Triglycerides 195 Cholesterol 127 LDL Cholesterol 43 VLDL Cholesterol 39 HDL Cholesterol 45 Assessment/Plan All Active Problems Dizziness (Acute) The patient is a 73 year old F with PMH HTN, HLD, CAD s/p stents, hypothyroidism, gout admitted with dizziness. Per patient she woke up yesterday morning (01/01/19) and felt dizzy, whole room was spinning, had balance issues, was later admitted to the hospital, per patient her dizziness has got much better, lasted for more than 24 hrs, denies any vomiting, falls,LI, focal motor weakness, visual disturbances, speech disturbances or sensory loss. Per patient she ambulates with walker, does not drive. Does complaint of tinnitus. Is on dual AP at baseline, per patient she had cardiac stents placed in 2007 and has been on dual AP since then. Impression Dizziness-likely peripheral etiology, R/O VBI Plan -Check CTA head/neck if no C/I -MRI brain- no acute stroke, right frontal angioma -on dual AP, reason not clear. Recommend Cardiology consult, will defer further decision making to Cardiology -On Lipitor 80 mg PO q hs. Can change it to 40 mg PO once daily if no contraindication -ENT consult -Vestibular therapy -GI/DVT prophylaxis -PT/OT -Fall precautions -Further medical management per hospitalist team -Follow up with Neurology as outpatient in 6 weeks -Please call with questions if any -Thank you for allowing us to participate in patient's care and management. Code Visit Inpatient E&M: [id number] Init Hosp L3
--- NOTE | 2019-01-02 20:01 | CT_ITS ---
STUDY: CTA OF THE BRAIN REASON FOR EXAM: Female, 73 years old. Dizziness. RADIATION DOSAGE (If Supplied By Facility): CTDIvol = ( 22.99 ) mGy, DLP = ( 1593.93 ) mGycm TECHNIQUE: CT angiography was performed with a multi-detector CT scanner. Data acquisition was obtained from the skull base through the vertex following intravenous administration of Isovue 370 100ML IV. MIP images were reconstructed from the axial data set. Post-processing of the angiographic images was performed, with multiplanar reformation and 3D reconstruction. Individualized dose optimization techniques were used for this CT. COMPARISON: CT brain 01/01/2019. FINDINGS: CT brain without contrast: There is no intracranial mass, hemorrhage, or acute territorial infarct. There is mild ventricular enlargement, consistent with the degree of sulcal atrophy. Mild involutional changes are present. Moderate mucosal thickening is noted in the maxillary sinuses bilaterally. CTA brain: Suboptimal vascular opacification due to intravenous infiltration. Normal bilateral petrous carotid arteries. Normal right cavernous carotid artery with a normal supraclinoid bifurcation. Normal left cavernous carotid artery with a normal supraclinoid bifurcation. Normal right A1 segments of the anterior cerebral artery. Normal left A1 segments of the anterior cerebral artery. Normal intact anterior communicating artery (ACOM). Normal bilateral A2 segments of the anterior cerebral arteries. Normal right M1 and M2 segments of the middle cerebral arteries, with a normal M1 bifurcation. Normal left M1 and M2 segments of the middle cerebral arteries, with a normal M1 bifurcation. There is non-visualization of the right posterior communicating artery (PCOM). Normal left posterior communicating artery (PCOM). Normal bilateral vertebral arteries. Normal basilar artery with a normal basilar bifurcation. Right superior cerebellar artery is well demonstrated. Left SCA is not definitely seen. Normal bilateral P1, P2 and visualized P3 segments of the posterior cerebral arteries. Limited P3 visualization. IMPRESSION: 1. Limited study, suboptimal vascular opacification. 2. No high-grade stenosis or occlusion. 3. Chronic maxillary sinusitis. Electronically Signed: Manuela Borden MD at 22:58 EST Tel , Service support , STUDY: CTA NECK WITH CONTRAST REASON FOR EXAM: Female, 73 years old. Dizziness. RADIATION DOSAGE (If Supplied By Facility): CTDIvol = ( ) mGy, DLP = ( ) mGycm TECHNIQUE: CT angiography with multi-detector data acquisition was performed from the aortic arch to the skull base following intravenous administration of . MIP images were reconstructed from the axial data set. Post-processing of the angiographic images was performed, with multiplanar reformation and 3D reconstruction. Individualized dose optimization techniques were used for this CT. COMPARISON: None. FINDINGS: Slightly limited due to intravenous line infiltration. AORTIC ARCH: Normal visualized aortic arch. Normal origins of the brachiocephalic, left common carotid, and left subclavian arteries. RIGHT CAROTID ARTERIES: Normal right common carotid artery (CCA). Normal right common carotid bulb. There is mild atherosclerotic plaque formation of the origin of the right internal carotid artery with no cross sectional diameter stenosis. Normal visualized cervical portion of the right internal carotid artery. Normal origin of the right external carotid artery (ECA). LEFT CAROTID ARTERIES: Normal left common carotid artery (CCA). Normal left common carotid bulb. There is mild atherosclerotic plaque formation of the origin of the left internal carotid artery with no cross sectional diameter stenosis. Normal visualized cervical portion of the left internal carotid artery. Normal origin of the left external carotid artery (ECA). VERTEBRAL ARTERIES: Normal bilateral vertebral arteries. CT/CTA Head W/WO Contrast IMPRESSION: Normal bilateral cervical carotid and vertebral arteries. Electronically Signed: Manuela Borden MD at 23:00 EST Tel , Service support ,
--- NOTE | 2019-01-02 20:01 | CT_ITS ---
STUDY: CTA NECK WITH CONTRAST REASON FOR EXAM: Female, 73 years old. RADIATION DOSAGE (If Supplied By Facility): CTDIvol = ( 22.99 ) mGy, DLP = ( 1593.93 ) mGycm TECHNIQUE: CT angiography with multi-detector data acquisition was performed from the aortic arch to the skull base following intravenous administration of 100ML ml of Isovue 370 contrast. MIP images were reconstructed from the axial data set. Post-processing of the angiographic images was performed, with multiplanar reformation and 3D reconstruction. Exam quality is diminished by suboptimal arterial contrast enhancement Degree of stenosis (when present) measured utilizing NASCET criteria. Individualized dose optimization techniques were used for this CT. COMPARISON: None. FINDINGS: Visualized lung apices are unremarkable except for mild degree of emphysematous changes. AORTIC ARCH: Mild atherosclerosis of the aortic arch. Minimal atherosclerosis at the origin of the right brachiocephalic and left subclavian arteries but no hemodynamically significant stenosis. RIGHT CAROTID ARTERIES: Normal right common carotid artery (CCA). Normal right common carotid bulb. There is mild atherosclerotic plaque formation of the origin of the right internal carotid artery with 30% cross sectional diameter stenosis. Normal visualized cervical portion of the right internal carotid artery. Normal origin of the right external carotid artery (ECA). LEFT CAROTID ARTERIES: Normal left common carotid artery (CCA). There is mild atherosclerotic plaque formation with minimal narrowing of the left carotid bulb. There is mild atherosclerotic plaque formation of the origin of the left internal carotid artery with 40% cross sectional diameter stenosis. Normal visualized cervical portion of the left internal carotid artery. Normal origin of the left external carotid artery (ECA). VERTEBRAL ARTERIES: Limited opacification (see above technique) of both vertebral arteries appear to be patent. There are degenerative changes of the cervical spine. Chronic mucoperiosteal thickening of the bilateral maxillary sinuses. CT/CTA Neck W/WO Contrast IMPRESSION: 1. Exam limited due to suboptimal arterial bolus timing. 2. Bilateral internal carotid artery atherosclerosis without hemodynamically significant stenosis. Electronically Signed: Dakota Barraza MD at 21:52 EST , Service support ,
--- NOTE | 2019-01-02 20:20 | NURSING ---
pt off floor at this time for CT scan
--- NOTE | 2019-01-02 20:57 | NURSING ---
pt returned to floor from CT scan at this time
[2019-01-02] MEDS: Atorvastatin Calcium 80 MG Tablet PO (21:17)
[2019-01-03] VITALS (7 sets, daily range): BP systolic 114–147; BP diastolic 54–72; PULSE 70–82; RESP 18; TEMP 36.5–36.8; O2SAT 95–97; BMI 38.7
[2019-01-03] MEDS: Levothyroxine 125 MCG Tablet PO (06:03)
[2019-01-03 09:41] LABS: Anion Gap 8 (5-15); BUN 24 mg/dL (7-18); BUN/Creat Ratio 19.2 RATIO (10-20); Calcium,Total 9.4 mg/dL (8.5-10.1); Chloride 104 mmol/L (98-107); Creatinine, Serum 1.25 mg/dL (0.55-1.02); EST Glomerular Filtration Rate 44 mL/min (>60); Est Glom Filt Rate - Afr Amer 54 mL/min (>60); Estimated Creatinine Clearance 34.99 ml/min; Glucose 157 mg/dL (74-106); Magnesium 1.7 mg/dL (1.6-2.6); Potassium 4.1 mmol/L (3.5-5.1); Sodium Level 138 mmol/L (136-145)
--- NOTE | 2019-01-03 10:07 | PCM.DC ---
- Discharge Diagnoses Current Active Problems: Current Active and Chronic Problems Dizziness (Acute) Essential hypertension (Chronic) Dyslipidemia (Chronic) Hypothyroidism (Chronic) You will use the following diet at home:: No restrictions Discharge Activity: Return to Normal Activity Allergies/Adverse Reactions: Allergies Penicillins Allergy (Verified 01/01/19 09:30) Swelling meperidine [From Demerol] Adverse Reaction (Verified 01/01/19 09:30) Vomiting SODIUM PENTATHAL Adverse Reaction (Uncoded 01/01/19 09:30) Vomiting Medications to take at Discharge Allopurinol [Zyloprim] 300 mg PO DAILY 08/12/16 Aspirin E.C. [Ecotrin] 81 mg PO DAILY@0800 08/12/16 Atorvastatin Calcium [Lipitor] 80 mg PO QHS 08/12/16 Clopidogrel Bisulfate [Plavix] 75 mg PO DAILY 08/12/16 Hydrochlorothiazide [Hctz] 25 mg PO DAILY 08/12/16 Levothyroxine [Synthroid] 125 mcg PO DAILY 08/12/16 Lisinopril [Zestril] 40 mg PO DAILY 08/12/16 Multivit-Min/Iron/Folic/Lutein [Centrum Silver Women Tablet] 1 each PO DAILY 08/12/16 Nitroglycerin [Nitrostat] 0.4 mg SUBLINGUAL Q5M PRN 08/12/16 Clindamycin [Cleocin] 150 mg PO UD 01/01/19 Metoprolol Succinate [Toprol Xl] 25 mg PO DAILY 01/01/19 [place]-3/Dha/Epa/Fish Oil [[place] 3 500 Softgel] 500 - 1,000 mg PO DAILY 01/01/19 Oxybutynin Chloride [Oxybutynin Chloride ER] 5 mg PO DAILY 01/01/19 Ubidecarenone [Co Q-10] 75 mg PO DAILY 01/01/19 Orders to be completed after discharge: Occupational Therapy Eval Location: None Selected Physical Therapy Evaluation Location: None Selected Primary Care Physician: Rocío Art MD [Primary Care Provider] - Please follow up with your Primary Care Physician in: IN 3-5DAYS Test Results: Test results from this visit will be discussed in further detail at your follow-up appointment, if applicable. Please Follow Up With: Price Hernandez MD When: FOR VESTIBULAR FUNCTION ASSESMENT Proposed Discharge Date: 01/03/19
--- NOTE | 2019-01-03 10:10 | DCINST_ITS ---
- Discharge Diagnoses Current Active Problems: Current Active and Chronic Problems Dizziness (Acute) Essential hypertension (Chronic) Dyslipidemia (Chronic) Hypothyroidism (Chronic) You will use the following diet at home:: No restrictions Discharge Activity: Return to Normal Activity Allergies/Adverse Reactions: Allergies Penicillins Allergy (Verified 01/01/19 09:30) Swelling meperidine [From Demerol] Adverse Reaction (Verified 01/01/19 09:30) Vomiting SODIUM PENTATHAL Adverse Reaction (Uncoded 01/01/19 09:30) Vomiting Medications to take at Discharge Allopurinol [Zyloprim] 300 mg PO DAILY 08/12/16 Aspirin E.C. [Ecotrin] 81 mg PO DAILY@0800 08/12/16 Atorvastatin Calcium [Lipitor] 80 mg PO QHS 08/12/16 Clopidogrel Bisulfate [Plavix] 75 mg PO DAILY 08/12/16 Hydrochlorothiazide [Hctz] 25 mg PO DAILY 08/12/16 Levothyroxine [Synthroid] 125 mcg PO DAILY 08/12/16 Lisinopril [Zestril] 40 mg PO DAILY 08/12/16 Multivit-Min/Iron/Folic/Lutein [Centrum Silver Women Tablet] 1 each PO DAILY 08/12/16 Nitroglycerin [Nitrostat] 0.4 mg SUBLINGUAL Q5M PRN 08/12/16 Clindamycin [Cleocin] 150 mg PO UD 01/01/19 Metoprolol Succinate [Toprol Xl] 25 mg PO DAILY 01/01/19 [place]-3/Dha/Epa/Fish Oil [[place] 3 500 Softgel] 500 - 1,000 mg PO DAILY 01/01/19 Oxybutynin Chloride [Oxybutynin Chloride ER] 5 mg PO DAILY 01/01/19 Ubidecarenone [Co Q-10] 75 mg PO DAILY 01/01/19 Orders to be completed after discharge: Occupational Therapy Eval Location: None Selected Physical Therapy Evaluation Location: None Selected Primary Care Physician: Rocío Art MD [Primary Care Provider] - Please follow up with your Primary Care Physician in: IN 3-5DAYS Test Results: Test results from this visit will be discussed in further detail at your follow- up appointment, if applicable. Please Follow Up With: Price Hernandez MD When: FOR VESTIBULAR FUNCTION ASSESMENT Proposed Discharge Date: 01/03/19
--- NOTE | 2019-01-03 10:11 | PCM.DC.SUM ---
Discharge Date and Diagnosis - Problem List Patient Problems: Active and Suspected Problems Dizziness (Acute) Date of Admission: 01/01/19 Date of Discharge: 01/03/19 - Primary Discharge Diagnosis Active and Suspected Problems Dizziness (Acute) - Secondary Discharge Diagnosis Chronic Problems Essential hypertension (Chronic) Dyslipidemia (Chronic) Hypothyroidism (Chronic) Hospital Course and Treatment Imaging Results: Clinical Impression(s) from Imaging Studies Brain CT 01/01/19 09:59 IMPRESSION: 1. Chronic involutional changes of the brain. 2. No CT evidence of acute intracranial hemorrhage. Electronically Signed: Daina Henderson MD at 11:10 EST , Service support , Brain MRI 01/01/19 14:15 IMPRESSION: 1. No acute process. 2. Trace microvascular ischemic changes. 3. Small right frontal angioma versus remote punctate hemorrhage. 4. Mild chronic sinusitis. Electronically Signed: Manuela Borden MD at 16:32 EST Tel , Service support , Head CTA 01/02/19 20:01 IMPRESSION: Normal bilateral cervical carotid and vertebral arteries. Electronically Signed: Manuela Borden MD at 23:00 EST Tel , Service support , Neck CTA 01/02/19 20:01 IMPRESSION: 1. Exam limited due to suboptimal arterial bolus timing. 2. Bilateral internal carotid artery atherosclerosis without hemodynamically significant stenosis. Electronically Signed: Dakota Barraza MD at 21:52 EST , Service support , Summary of Care Provided: Patient is a 73-year-old lady with multiple comorbidities presented with dizziness 1. Dizziness: Patient has been admitted to monitored bed. Did initiate every 4 neuro checks. Ordered MRI of the brain to rule out posterior seclusion CVA. Also did order 2D echo as well as carotid ultrasound; also did request orthostatics every shift.MRI of the brain was ordered which demonstrated no grossly acute process however there was a mention of small right frontal angioma versus remote punctate hemorrhage which should not explain for patient dizziness. Consultation was placed to neurology. Patient was seen by Dr. Nails his notes and recommendations reviewed. 2D echo obtained demonstrated EF of 70% and stage I diastolic dysfunction with mild tricuspid valve insufficiency. Pulmonary arterial systolic pressure was estimated to be 38 mmHg. Patient did receive therapy in the hospital recommendation was made for patient to be discharged home with home therapy however she did not want any visitors in her house. A requisition was therefore written for patient to undergo outpatient vestibular and physical therapy at the facility of her choice. She was also given referral to be seen by Dr. Hernandez with ENT as outpatient for vestibular function assessment 2. Acute renal insufficiency. Patient was started on IV hydration kidney function improving do suspect patient dizziness to be secondary to orthostatic hypotension from dehydration kidney function did improve prior to discharge 3. Hypothyroidism-patient is on levothyroxine home dose continued 4. Hypertension-blood pressure controlled, home medications continued with dose adjustment as needed 5. Dyslipidemia-patient is on statin therapy, continued at home dose 6. Coronary artery disease with previous stent placement patient is followed by Dr. Pacheco with cardiology in [place] patient is on dual antiplatelet therapy continued. 7. Obesity with BMI of 38.8 weight loss advised 8. DVT prophylaxis SC Lovenox Patient Problems: Active and Suspected Problems Dizziness (Acute) Objective: GENERAL: Cooperative in no distress HEENT: Atraumatic; moist oral mucosa EYES; Anicteric, Normal Conjunctiva NECK; supple, normal thyroid, no distended JVD. RESPIRATORY: Diminished to auscultation bilaterally, CARDIOVASCULAR: Regular S1 S2, no audible murmurs GI: soft, non-tender, normoactive bowel sounds, : No Renal angle tenderness; EXTREMITIES: No edema, no clubbing, no cyanosis. MUSCULOSKELETAL: No Joint Tenderness; NEURO: Awake; no lateralizing signs. SKIN: No Rash PSYCH; affect is flat - Physical Exam Vital Signs Temp Pulse Resp BP Pulse Ox 97.7 F L 82 18 119/67 97 01/03/19 05:55 01/03/19 06:54 01/03/19 05:55 01/03/19 05:55 01/03/19 05:55 Oxygen Delivery Method Room Air Weight: 105.687 kg Body Mass Index (BMI) 38.7 Intake and Output for Last 24 Hours 01/01/19 01/02/19 01/03/19 23:59 23:59 23:59 Intake Total 700 / 700 2130 / 2130 120 / 120 Output Total 1050 / 1050 2024 400 / 400 Balance -350 / -350 105 / 105 -280 / -280 Laboratory Tests Past 24 Hrs 01/03/19 09:20 Sodium 138 Potassium 4.1 Chloride 104 Carbon Dioxide 26.0 Anion Gap 8 BUN 24 H Creatinine 1.25 H Estim Creat Clear Calc 34.99 Est GFR (MDRD) Af Amer 54 L Est GFR (MDRD) Non-Af 44 L BUN/Creatinine Ratio 19.2 Glucose 157 H Calcium 9.4 Magnesium 1.7 Discharge Diet: No Restrictions Discharge Activity: Return to Normal Activity Home Medications: Medications to take at Discharge Allopurinol [Zyloprim] 300 mg PO DAILY 08/12/16 Aspirin E.C. [Ecotrin] 81 mg PO DAILY@0800 08/12/16 Atorvastatin Calcium [Lipitor] 80 mg PO QHS 08/12/16 Clopidogrel Bisulfate [Plavix] 75 mg PO DAILY 08/12/16 Hydrochlorothiazide [Hctz] 25 mg PO DAILY 08/12/16 Levothyroxine [Synthroid] 125 mcg PO DAILY 08/12/16 Lisinopril [Zestril] 40 mg PO DAILY 08/12/16 Multivit-Min/Iron/Folic/Lutein [Centrum Silver Women Tablet] 1 each PO DAILY 08/12/16 Nitroglycerin [Nitrostat] 0.4 mg SUBLINGUAL Q5M PRN 08/12/16 Clindamycin [Cleocin] 150 mg PO UD 01/01/19 Metoprolol Succinate [Toprol Xl] 25 mg PO DAILY 01/01/19 [place]-3/Dha/Epa/Fish Oil [[place] 3 500 Softgel] 500 - 1,000 mg PO DAILY 01/01/19 Oxybutynin Chloride [Oxybutynin Chloride ER] 5 mg PO DAILY 01/01/19 Ubidecarenone [Co Q-10] 75 mg PO DAILY 01/01/19 Other Amb Orders: Occupational Therapy Eval Location: None Selected Physical Therapy Evaluation Location: None Selected Primary Care Physician: Rocío Art MD [Primary Care Provider] - Please follow up with your Primary Care Physician in: IN 3-5DAYS Please Follow Up With: Price Hernandez MD When: FOR VESTIBULAR FUNCTION ASSESMENT Disposition: Home Minutes spent on discharge:: 35 Patient Condition:: Stable Medical Necessity - Tobacco Use Smoking Status: Never smoker Meaningful Use Info Meaningful Use Diagnoses (Choose all that apply): None applicable Code Visit OBSV E&M: 44084 Observation care discharge
--- NOTE | 2019-01-03 10:15 | DS.PCM_ITS ---
Discharge Date and Diagnosis - Problem List Patient Problems: Active and Suspected Problems Dizziness (Acute) Date of Admission: 01/01/19 Date of Discharge: 01/03/19 - Primary Discharge Diagnosis Active and Suspected Problems Dizziness (Acute) - Secondary Discharge Diagnosis Chronic Problems Essential hypertension (Chronic) Dyslipidemia (Chronic) Hypothyroidism (Chronic) Hospital Course and Treatment Imaging Results: Clinical Impression(s) from Imaging Studies Brain CT 01/01/19 09:59 IMPRESSION: 1. Chronic involutional changes of the brain. 2. No CT evidence of acute intracranial hemorrhage. Electronically Signed: Daina Henderson MD at 11:10 EST , Service support , Brain MRI 01/01/19 14:15 IMPRESSION: 1. No acute process. 2. Trace microvascular ischemic changes. 3. Small right frontal angioma versus remote punctate hemorrhage. 4. Mild chronic sinusitis. Electronically Signed: Manuela Borden MD at 16:32 EST Tel , Service support , Head CTA 01/02/19 20:01 IMPRESSION: Normal bilateral cervical carotid and vertebral arteries. Electronically Signed: Manuela Borden MD at 23:00 EST Tel , Service support , Neck CTA 01/02/19 20:01 IMPRESSION: 1. Exam limited due to suboptimal arterial bolus timing. 2. Bilateral internal carotid artery atherosclerosis without hemodynamically significant stenosis. Electronically Signed: Dakota Barraza MD at 21:52 EST , Service support , Summary of Care Provided: Patient is a 73-year-old lady with multiple comorbidities presented with dizziness 1. Dizziness: Patient has been admitted to monitored bed. Did initiate every 4 neuro checks. Ordered MRI of the brain to rule out posterior seclusion CVA. Also did order 2D echo as well as carotid ultrasound; also did request orthostatics every shift.MRI of the brain was ordered which demonstrated no grossly acute process however there was a mention of small right frontal angioma versus remote punctate hemorrhage which should not explain for patient dizzines s. Consultation was placed to neurology. Patient was seen by Dr. Nails his notes and recommendations reviewed. 2D echo obtained demonstrated EF of 70% and stage I diastolic dysfunction with mild tricuspid valve insufficiency. Pulmonary arterial systolic pressure was estimated to be 38 mmHg. Patient did receive therapy in the hospital recommendation was made for patient to be discharged home with home therapy however she did not want any visitors in her house. A requisition was therefore written for patient to undergo outpatient vestibular and physical therapy at the facility of her choice. She was also given referral to be seen by Dr. Hernandez with ENT as outpatient for vestibular function assessment 2. Acute renal insufficiency. Patient was started on IV hydration kidney function improving do suspect patient dizziness to be secondary to orthostatic hypotension from dehydration kidney function did improve prior to discharge 3. Hypothyroidism-patient is on levothyroxine home dose continued 4. Hypertension-blood pressure controlled, home medications continued with dose adjustment as needed 5. Dyslipidemia-patient is on statin therapy, continued at home dose 6. Coronary artery disease with previous stent placement patient is followed by Dr. Pacheco with cardiology in [place] patient is on dual antiplatelet therapy continued. 7. Obesity with BMI of 38.8 weight loss advised 8. DVT prophylaxis SC Lovenox Patient Problems: Active and Suspected Problems Dizziness (Acute) Objective: GENERAL: Cooperative in no distress HEENT: Atraumatic; moist oral mucosa EYES; Anicteric, Normal Conjunctiva NECK; supple, normal thyroid, no distended JVD. RESPIRATORY: Diminished to auscultation bilaterally, CARDIOVASCULAR: Regular S1 S2, no audible murmurs GI: soft, non-tender, normoactive bowel sounds, : No Renal angle tenderness; EXTREMITIES: No edema, no clubbing, no cyanosis. MUSCULOSKELETAL: No Joint Tenderness; NEURO: Awake; no lateralizing signs. SKIN: No Rash PSYCH; affect is flat - Physical Exam Vital Signs Temp Pulse Resp BP Pulse Ox 97.7 F L 82 18 119/67 97 01/03/19 05:55 01/03/19 06:54 01/03/19 05:55 01/03/19 05:55 01/03/19 05:55 Oxygen Delivery Method Room Air Weight: 105.687 kg Body Mass Index (BMI) 38.7 Intake and Output for Last 24 Hours 01/01/19 01/02/19 01/03/19 23:59 23:59 23:59 Intake Total 700 / 700 2130 / 2130 120 / 120 Output Total 1050 / 1050 2024 / 2024 400 / 400 Balance -350 / -350 105 / 105 -280 / -280 Laboratory Tests Past 24 Hrs 01/03/19 09:20 Sodium 138 Potassium 4.1 Chloride 104 Carbon Dioxide 26.0 Anion Gap 8 BUN 24 H Creatinine 1.25 H Estim Creat Clear Calc 34.99 Est GFR (MDRD) Af Amer 54 L Est GFR (MDRD) Non-Af 44 L BUN/Creatinine Ratio 19.2 Glucose 157 H Calcium 9.4 Magnesium 1.7 Discharge Diet: No Restrictions Discharge Activity: Return to Normal Activity Home Medications: Medications to take at Discharge Allopurinol [Zyloprim] 300 mg PO DAILY 08/12/16 Aspirin E.C. [Ecotrin] 81 mg PO DAILY@0800 08/12/16 Atorvastatin Calcium [Lipitor] 80 mg PO QHS 08/12/16 Clopidogrel Bisulfate [Plavix] 75 mg PO DAILY 08/12/16 Hydrochlorothiazide [Hctz] 25 mg PO DAILY 08/12/16 Levothyroxine [Synthroid] 125 mcg PO DAILY 08/12/16 Lisinopril [Zestril] 40 mg PO DAILY 08/12/16 Multivit-Min/Iron/Folic/Lutein [Centrum Silver Women Tablet] 1 each PO DAILY 08/12/16 Nitroglycerin [Nitrostat] 0.4 mg SUBLINGUAL Q5M PRN 08/12/16 Clindamycin [Cleocin] 150 mg PO UD 01/01/19 Metoprolol Succinate [Toprol Xl] 25 mg PO DAILY 01/01/19 [place]-3/Dha/Epa/Fish Oil [[place] 3 500 Softgel] 500 - 1,000 mg PO DAILY 01/01/19 Oxybutynin Chloride [Oxybutynin Chloride ER] 5 mg PO DAILY 01/01/19 Ubidecarenone [Co Q-10] 75 mg PO DAILY 01/01/19 Other Amb Orders: Occupational Therapy Eval Location: None Selected Physical Therapy Evaluation Location: None Selected Primary Care Physician: Rocío Art MD [Primary Care Provider] - Please follow up with your Primary Care Physician in: IN 3-5DAYS Please Follow Up With: Price Hernandez MD When: FOR VESTIBULAR FUNCTION ASSESMENT Disposition: Home Minutes spent on discharge:: 35 Patient Condition:: Stable Medical Necessity - Tobacco Use Smoking Status: Never smoker Meaningful Use Info Meaningful Use Diagnoses (Choose all that apply): None applicable Code Visit OBSV E&M: 20554 Observation care discharge
[2019-01-03] MEDS: Tolterodine Tartrate 2 MG CAP.SA PO (10:45)
[2019-01-03] MEDS: Metoprolol(XL)Succ 25 MG Tablet PO (10:45)
[2019-01-03] MEDS: hydroCHLOROthiazide 25 MG Tablet PO (10:45)
[2019-01-03] MEDS: Lisinopril 40 MG Tablet PO (10:46)
[2019-01-03] MEDS: Allopurinol 300 MG Tablet PO (10:46)
== END 2019-01-03 10:10 | disposition home or self-care (01) ==
LOC: ED 10:12 → PCU 13:50
PROVIDERS: Admitting Provider Internal Medicine; Emergency Provider Emergency Medicine; Family Provider Internal Medicine; PCP Internal Medicine; Referring Provider Internal Medicine; Visit Provider Internal Medicine
DX: R42 Dizziness and giddiness (principal); I10 Essential (primary) hypertension; E78.5 Hyperlipidemia, unspecified; E03.9 Hypothyroidism, unspecified; E66.9 Obesity, unspecified; M10.9 Gout, unspecified; I25.10 Atherosclerotic heart disease of native coronary artery without angina pectoris; N28.9 Disorder of kidney and ureter, unspecified; Z95.5 Presence of coronary angioplasty implant and graft; Z79.899 Other long term (current) drug therapy; Z79.02 Long term (current) use of antithrombotics/antiplatelets; Z79.82 Long term (current) use of aspirin; Z68.38 Body mass index [BMI] 38.0-38.9, adult; Z71.3 Dietary counseling and surveillance; M19.90 Unspecified osteoarthritis, unspecified site
CPT/HCPCS: 36415; 70450; 70496; 70498; 70551; 80048; 80061; 81001; 83735; 84484; 85025; 93005; 93306; 93880; 96360; 97162; 97166; 97535; 99218; 99251; 99285; J7030; P9612; Q9957; Q9967; A4216; C8929; G0378; G0463

== ENCOUNTER 2020-07-14 00:06 | Inpatient (IN) | payer MEDICARE, SELFPAY ==
[2019-01-03 10:34] VITALS: BMI 38.7
[2020-07-13 01:00] VITALS: PULSE 57
[2020-07-13 22:54] VITALS: BMI 35.0
[2020-07-13 23:00] VITALS: BP 126/71; PULSE 67; RESP 18; TEMP 36.4; O2SAT 100
--- NOTE | 2020-07-13 23:46 | PCM.HP.STD ---
Problem List (1) Hyponatremia Status: Acute (2) Constipation Status: Chronic (3) Dizziness Status: Inactive (4) Essential hypertension Status: Chronic (5) Dyslipidemia Status: Chronic (6) Hypothyroidism Status: Chronic (7) RA (rheumatoid arthritis) Status: Chronic (8) Coronary artery disease Status: Chronic History of Present Illness Date of Admission: 07/13/20 Chief Complaint: Hyponatremia The patient is a 75 year old F with multiple comorbidities including hypertension, hypothyroidism is being directly admitted from [place] [facility] for hyponatremia. As per ER physician, sodium 115, chloride 79, K4.3. Glucose 145. BUN/creatinine 20/1.1. Leukocytosis 12.1 thousand, platelet count 276. INR 1.09. Lactic acid 1.8. UA is negative for significant pyuria, WBC 2-5 cells, RBC 0-3, nitrite negative LE trace. She denies dysuria or any change in urinary tract symptoms. EKG normal sinus rhythm with first-degree AV block at 73 beats per night. Patient is not a good historian and probably recall with timing of the events. She has memory lapses. She vaguely said she has diarrhea about 2 weeks ago after she took a laxative and then she did not had bowel movement for last 3- 4 days. She is passing flatus. She also had cough and sore throat that is resolved about 2 weeks ago. Denies any fever or chills. As per ER physician, she also said having abdominal discomfort, nonfocal, diffuse but to me she denied it. She denies any exposure to suspected COVID patient or attending being gathering/crowd. She does not remember well whether she had colonoscopy or EGD. ED vitals, temperature 98.5, pulse 89.8, respiratory rate 16, blood pressure 126/75 and pulse ox 96% on room air. Patient was treated with IV fluid normal saline. Repeat BMP shows sodium improved to 119. Troponin T, high-sensitivity 30, high but patient does not have any chest pain or shortness of breath. [] Past Medical History Past Medical History (Chronic Problems): Chronic Problems Essential hypertension (Chronic) Dyslipidemia (Chronic) Hypothyroidism (Chronic) Constipation (Chronic) RA (rheumatoid arthritis) (Chronic) Coronary artery disease (Chronic) Allergies Penicillins Allergy (Verified 01/01/19 09:30) Swelling meperidine [From Demerol] Adverse Reaction (Verified 01/01/19 09:30) Vomiting SODIUM PENTATHAL Adverse Reaction (Uncoded 01/01/19 09:30) Vomiting Home Medications: Ambulatory Orders Medication Instructions Recorded Allopurinol [Zyloprim] 300 mg PO DAILY 08/12/16 Aspirin E.C. [Ecotrin] 81 mg PO DAILY@0800 08/12/16 Atorvastatin Calcium [Lipitor] 80 mg PO QHS 08/12/16 Clopidogrel Bisulfate [Plavix] 75 mg PO DAILY 08/12/16 Hydrochlorothiazide [Hctz] 25 mg PO DAILY 08/12/16 Levothyroxine [Synthroid] 125 mcg PO DAILY 08/12/16 Lisinopril [Zestril] 40 mg PO DAILY 08/12/16 Multivit-Min/Iron/Folic/Lutein 1 each PO DAILY 08/12/16 [Centrum Silver Women Tablet] Nitroglycerin (INPATIENT USE) 0.4 mg SUBLINGUAL Q5M PRN 08/12/16 [Nitrostat] Clindamycin [Cleocin] 150 mg PO UD 01/01/19 Metoprolol Succinate [Toprol Xl] 25 mg PO DAILY 01/01/19 [place]-3/Dha/Epa/Fish Oil [[place] 3 500 - 1,000 mg PO DAILY 01/01/19 500 Softgel] Oxybutynin Chloride [Oxybutynin 5 mg PO DAILY 01/01/19 Chloride ER] Ubidecarenone [Co Q-10] 75 mg PO DAILY 01/01/19 Smoking Status: Never smoker - *Family History Paternal History Items: Cancer - Father of colon cancer Review of Systems Constitutional: Denies: Chills, Fever HEENT: Denies: Head Aches, Sinus Congestion, Sinus Drainage Cardiovascular: Denies: Chest Pain, Palpitations Respiratory: Reports: Cough - Had 2 weeks ago, resolved. Denies: Shortness of breath at rest, Sputum production Gastrointestinal: Reports: Constipation, -. Denies: Abdominal Pain, Nausea, Vomiting Genitourinary: Denies: Dysuria, Frequency, Hesitancy Musculoskeletal: Reports: Joint Pain, Joint stiffness, Joint swelling, - - Chronic knee, small fingers and toes deformity.. Denies: Joint Tenderness Skin: Denies: Rash, Wounds Neurological: Reports: Balance problems, Incoordination. Denies: Focal weakness, Numbness, Tingling Psychiatric: Denies: Anxiety, Depression, Homicidal Ideations, Suicidal Ideations Hematologic/ Lymphatic: Denies: Easy Bruising, Easy Bleeding VTE Information - Inpt Only VTE Present on Admission: No VTE Mechan Device Prophylaxis: SCD's VTE Pharm Prophylaxis ordered?: Yes Patient Problems: Active and Suspected Problems Hyponatremia (Acute) - Physical Exam Vitals/I&O's: Body Mass Index (BMI) 38.7 General: Alert, Oriented x3, Cooperative HEENT: Atraumatic, PERRLA, EOMI, Normocephalic Neck: Supple, No JVD, Negative Carotid Bruits Lungs: Clear to auscultation, No rhonchi, No wheeze, No rales, Diminished - Air entry bilaterally, diminished in lung bases. Cardiovascular: Regular rate, No murmurs Abdomen: Bowel Sounds Present, Soft, Non Tender, Non-Distended, - - Per rectal exam was done On external anal inspection: Multiple external hemorrhoids but nontender. No palpable mass or stricture noted. Liquid stool found. Extremities: Capillary Refill Less than 3 Seconds, Edema, - Skin: No rashes, No breakdown Musculoskeletal: No Tenderness to Palpation of Joints or Extremities, Arthritic Changes - bilateral knee joint deformity. Small hand and feet joints have deformity suggestive of rheumatoid arthritis Neurological: Cranial nerves II-XII grossly intact, Deep Tendon Reflexes 2+/4 and Symmetrical, Neuro grossly intact Psych/Mental Status: Normal Affect, Appropriate Assessment/Plan All Active Problems Hyponatremia (Acute) The patient is a 75 year old F with multiple comorbidities including hypertension, hypothyroidism is being directly admitted from [place] [facility] for hyponatremia [] 1. Hypovolemic, hypotonic hyponatremia, possible exacerbated by diuretic, HCTZ: [facility]. Initially, it was thought to admit in PCU but plan changed as the nurses reported the patient had cough and sore throat. Patient is started on IV fluid normal saline. Serum and urine osmolality. Urine electrolytes ordered. In our record, patient's sodium was 130 04 January 2019 and 134 as per ER physician in July 2019. Hold HCTZ 2. URIs symptoms, resolved: Patient had cough, sore throat about 2 weeks ago that is resolved. COVID-19 PCR is ordered. 3. Coronary artery status post stent: Patient on Plavix, lisinopril and Toprol-XL which are continued. 4. Hypertension: Patient on lisinopril 40 mg daily and HCTZ 25 mg daily. HCTZ held. Lisinopril dose decreased to 20 mg daily. Patient blood pressure is 147/72. Other multiple comorbidities include hypothyroidism, dyslipidemia, and rheumatoid arthritis: Home medication reconciliation done. Chronic constipation: On MiraLAX and Metamucil. 5. Physical debility: Patient on wheelchair for 5 to 10 years secondary to rheumatoid arthritis and bilateral knee DJD: PT and OT ordered. DVT prophylaxis: Lovenox 40 mg subcu daily Inpatient E&M: 88998 Init Hosp L3 Procedures: 15772 Advncd Care Plan 30 Min
[2020-07-14] VITALS (11 sets, daily range): BP systolic 93–123; BP diastolic 52–61; PULSE 54–66; RESP 16–18; TEMP 36–36.4; O2SAT 94–100; BMI 35.8
[2020-07-14] MEDS: 0.9% Normal Saline 1,000 ML 100 ML IV ×3 (00:33→20:41)
[2020-07-14] MEDS: Enoxaparin 40 MG/0.4 ML Syringe SC ×2 (00:33→09:50)
[2020-07-14 01:40] LABS: Probe Check PASS; Specimen Processing Control PASS
[2020-07-14 02:28] LABS: Anion Gap 8 (5-15); BUN 18 mg/dL (7-18); BUN/Creat Ratio 16.4 RATIO (10-20); CPK Total, Creatine Kinase 280 U/L (26-192); Calcium,Total 9.6 mg/dL (8.5-10.1); Chloride 87 mmol/L (98-107); EST Glomerular Filtration Rate 51 mL/min (>60); Est Glom Filt Rate - Afr Amer 62 mL/min (>60); Estimated Creatinine Clearance 40.09 ml/min; Glucose 93 mg/dL (74-106); Magnesium 1.5 mg/dL (1.6-2.6); Potassium 3.7 mmol/L (3.5-5.1); Sodium Level 121 mmol/L (136-145)
[2020-07-14 02:48] LABS: Urine Chloride 55 mmol/L (Not Establ.); Urine Sodium 56 mmol/L (Not Establ.)
[2020-07-14 02:58] LABS: Protein, Urine (Random) < 6.0 mg/dL (<11.9); Protein:Creat Ratio 133 mg/g CRE (0-200)
[2020-07-14] MEDS: Levothyroxine 125 MCG Tablet PO (05:01)
--- NOTE | 2020-07-14 07:45 | NURSING ---
Handoff report called to Gerri Davis at this time. Preparing pt. to be transferred to room 102 PCU.
[2020-07-14 09:25] LABS: Absolute Lymphocyte Count 1.57 X10^3/uL (0.83-4.51); Absolute Neutrophil Count 7.3 X10^3/uL (2.0-7.7); Basophil# 0.04 X10^3/uL; Basophil% 0.4 % (0-1); Eosinophil# 0.14 X10^3/uL; Eosinophils% 1.4 % (0-5); Hemoglobin 11.4 g/dL (12.0-15.0); Lymphocyte # 1.57 X10^3/ul (4.0); Lymphocyte % 15.9 % (19-41); Mean Corp Hgb Conc 35.6 g/dL (32-36); Mean Corpuscular Hgb 33.5 pg (27.0-32.0); Mean Corpuscular Volume 94.1 fL (81-99); Mean Platelet Vol. 8.5 fl (6.2-12.0); Monocyte# 0.77 X10^3/uL; Monocyte% 7.8 % (0-10); NRBC Flagged by Analyzer 0 % (0-5); Neutrophil # 7.31 X10^3/uL (2.7-7.7); Neutrophil % 74.1 % (47-70); Platelet Count 247 K/mm3 (150-450); RBC Distribution Width CV 14.3 % (11.6-14.6); RBC Distribution Width SD 48.7 fl (35.1-43.9); White Blood Count 9.9 K/mm3 (4.4-11.0)
[2020-07-14] MEDS: Polyethylene Glycol 3350 17 GM PACKET PO (09:50)
[2020-07-14] MEDS: Clopidogrel Bisulfate 75 MG Tablet PO (09:51)
[2020-07-14] MEDS: Metoprolol(XL)Succ 25 MG Tablet PO (09:51)
[2020-07-14] MEDS: Aspirin E.C. 81 MG Tablet PO (09:51)
[2020-07-14] MEDS: Tolterodine Tartrate 2 MG CAP.SA PO (09:51)
[2020-07-14] MEDS: Lisinopril 20 MG Tablet PO (09:52)
[2020-07-14] MEDS: Allopurinol 300 MG Tablet PO (09:55)
[2020-07-14 10:42] LABS: ALB/GLOB Ratio 1.1 RATIO (0.9-2.4); AST(SGOT) 34 U/L (15-37); Alanine Aminotransfer ALT/SGPT 27 U/L (13-56); Albumin, Serum 3.6 g/dL (3.2-5.0); Alkaline Phosphatase 94 U/L (45-117); Anion Gap 8 (5-15); BUN 16 mg/dL (7-18); BUN/Creat Ratio 15.4 RATIO (10-20); Calcium,Total 9.1 mg/dL (8.5-10.1); Chloride 86 mmol/L (98-107); Creatinine, Serum 1.04 mg/dL (0.55-1.02); EST Glomerular Filtration Rate 55 mL/min (>60); Est Glom Filt Rate - Afr Amer 66 mL/min (>60); Estimated Creatinine Clearance 42.41 ml/min; Globulin 3.4 g/dL (2.2-4.2); Glucose 79 mg/dL (74-106); Magnesium 2.1 mg/dL (1.6-2.6); Potassium 4.1 mmol/L (3.5-5.1); Sodium Level 121 mmol/L (136-145); Thyroid Stim Hormone (TSH) 2.11 uIU/mL (0.358-3.74)
--- NOTE | 2020-07-14 12:21 | CASEMGMT ---
MONCHO BRIGHT assessment: Face to Face with patient for initial transition planning/care coordination assessment. MONCHO BRIGHT introduced self and role at [facility], pt voices understanding and consents to assessment at this time. Pt is sitting up in chair in no distress at this time. Pt is A/Ox4 at this time and answers all questions appropriately at this time. Care providers, pharmacy, and demographics verified at this time. Presentation: Direct admit from [place] ED for hyponatremia Admitting dx: Hyponatremia, weakness PCP: Kaelyn Specialists: Pt states no current specialists. Preferred Pharmacy: [facility] Insurance: AeR Prescription Benefit: AeR Living Will/HPOA: Pt states does not have LW/HPOA and pt declines AD info at this time. LNOK: Isaac Juan David, Living Arrangements: Pt states lives with in 1 story home and states no concerns at home at this time. Pt states cooks but pt is able to complete rest of ADL's. Transportation: Pt states drives and states no transportation concerns at this time. DME/HHC: Pt states has a walker and states no further DME needs at this time. Pt states has had [facility] in the past s/p surgery but has not been to SNF. Pt declines need for HHC at this time. Pt states no concerns with going home at time of discharge. Pt states is retired. Pt states does not smoke cigarettes or drink ETOH. Pt states no further concerns/needs at this time. CM to follow for any further discharge planning/needs. Advised pt to ask for CM if any further questions/concerns/needs arise, voices understanding. Pt Goal: Home Plan: [place] MONCHO BRIGHT
--- NOTE | 2020-07-14 12:52 | PCM.PROGNOTE ---
<Sheila Armendariz - Last Filed: 07/14/20 13:15> Patient Problems: Active and Suspected Problems Hyponatremia (Acute) Subjective: Patient seen and examined. Complains of poor appetite and nausea. Denies URI symptoms. Denies other current complaints. - Physical Exam Vitals/I&O's: Vital Signs Temp Pulse Resp BP Pulse Ox 97.5 F L 66 16 121/52 H 94 07/14/20 10:43 07/14/20 10:43 07/14/20 10:43 07/14/20 10:43 07/14/20 11:14 Oxygen Delivery Method Room Air Weight: 217 lb 13.067 oz Body Mass Index (BMI) 35.0 Intake and Output for Last 24 Hours 07/12/20 07/13/20 07/14/20 23:59 23:59 23:59 Intake Total 1535.67 / 1535.67 Output Total 450 / 450 Balance 1085.67 / 1085.67 General: Alert, Oriented x3, Cooperative HEENT: Atraumatic, PERRLA, EOMI, Normocephalic Neck: Supple, No JVD, Negative Carotid Bruits Lungs: Clear to auscultation, Diminished Cardiovascular: Regular rate, No murmurs Abdomen: Bowel Sounds Present, Soft, Non Tender, Non-Distended Extremities: No clubbing, No cyanosis, No edema, Capillary Refill Less than 3 Seconds Skin: No rashes, No breakdown Musculoskeletal: No Tenderness to Palpation of Joints or Extremities Neurological: Cranial nerves II-XII grossly intact, Neuro grossly intact Psych/Mental Status: Normal Affect, Appropriate Laboratory Results 07/13/20 23:55: COVID-19 (WILLIAM) Negative 07/14/20 01:35: Sodium 121 L, Potassium 3.7, Chloride 87 L, Carbon Dioxide 26.0, Anion Gap 8, BUN 18, Creatinine 1.10 H, Estim Creat Clear Calc 40.09, Est GFR (MDRD) Af Amer 62, Est GFR (MDRD) Non-Af 51 L, BUN/Creatinine Ratio 16.4, Glucose 93, Calcium 9.6, Magnesium 1.5 L, Total Creatine Kinase 280 H 07/14/20 02:25: Urine Osmolality Cancelled 07/14/20 02:25: Urine Creatinine 44.80 07/14/20 02:25: U Random Total Protein < 6.0, Urine Creatinine 44.40, Protein/Creatinin Ratio 133 07/14/20 02:25: Ur Random Sodium 56, Urine Potassium 26.0, Urine Chloride 55 07/14/20 02:25: Miscellaneous Test Pending 07/14/20 09:09: WBC 9.9, RBC 3.40 L, Hgb 11.4 L, Hct 32.0 L, MCV 94.1, MCH 33.5 H, MCHC 35.6, RDW Std Deviation 48.7 H, RDW Coeff of Robin 14.3, Plt Count 247, MPV 8.5, Immature Gran % (Auto) 0.400, Neut % (Auto) 74.1 H, Lymph % (Auto) 15.9 L, [place] % (Auto) 7.8, Eos % (Auto) 1.4, Baso % (Auto) 0.4, Absolute Neuts (auto) 7.3, Absolute Lymphs (auto) 1.57, Nucleated RBC % 0 07/14/20 09:09: Sodium 121 L, Potassium 4.1, Chloride 86 L, Carbon Dioxide 27.0, Anion Gap 8, BUN 16, Creatinine 1.04 H, Estim Creat Clear Calc 42.41, Est GFR (MDRD) Af Amer 66, Est GFR (MDRD) Non-Af 55 L, BUN/Creatinine Ratio 15.4, Glucose 79, Calcium 9.1, Magnesium 2.1, Total Bilirubin 1.40 H, AST 34, ALT 27, Alkaline Phosphatase 94, Total Protein 7.0, Albumin 3.6, Globulin 3.4, Albumin/Globulin Ratio 1.1, TSH 2.11 07/14/20 09:09: Miscellaneous Test Pending Current Medications Acetaminophen (Tylenol) 650 mg PO Q6H PRN PRN PRN Reason: Pain Score 1-10/Temp > 100.7 F Al Hydroxide/Mg Hydroxide (Mylanta Ii) 30 ml PO Q6H PRN PRN PRN Reason: Gastric Burning Albuterol Sulfate (Ventolin Aerosols) 2.5 mg INHALATION Q2H PRN PRN PRN Reason: Shortness of Breath/Wheezing Allopurinol (Zyloprim) 300 mg PO DAILY [facility]ON[facility] Last Admin: 07/14/20 09:55 Dose: 300 mg Documented by: Aspirin (Ecotrin) 81 mg PO DAILY@0800 [facility] Last Admin: 07/14/20 09:51 Dose: 81 mg Documented by: Atorvastatin Calcium (Lipitor) 80 mg PO QHS [facility] Clopidogrel Bisulfate (Plavix) 75 mg PO DAILY [facility] Last Admin: 07/14/20 09:51 Dose: 75 mg Documented by: Enoxaparin Sodium (Lovenox) 40 mg SC DAILY [facility] Last Admin: 07/14/20 09:50 Dose: 40 mg Documented by: Guaifenesin (Robitussin) 20 ml PO Q4H PRN PRN PRN Reason: COUGH Hydralazine HCl (Apresoline Iv) 10 mg IV Q4H PRN PRN PRN Reason: SBP more than 180 mmHg Sodium Chloride () 1,000 mls @ 100 mls/hr IV .Q10H [facility] Last Admin: 07/14/20 09:52 Dose: 100 mls/hr Documented by: Levothyroxine Sodium (Synthroid) 125 mcg PO DAILY@0600 [facility] Last Admin: 07/14/20 05:01 Dose: 125 mcg Documented by: Lisinopril (Zestril) 20 mg PO DAILY [facility] Last Admin: 07/14/20 09:52 Dose: 20 mg Documented by: Melatonin (Melatonin) 3 mg PO QHS PRN PRN PRN Reason: INSOMNIA Metoprolol Succinate (Toprol Xl (Beta Yves)) 25 mg PO DAILY [facility] Last Admin: 07/14/20 09:51 Dose: 25 mg Documented by: Morphine Sulfate () 2 mg IV Q3H PRN PRN PRN Reason: Pain Score 6-10/10 Nitroglycerin (Nitrostat) 0.4 mg SUBLINGUAL Q5M PRN PRN Reason: CARDIAC/CHEST PAIN Ondansetron HCl (Zofran) 4 mg IV Q8H PRN PRN PRN Reason: NAUSEA/VOMITING Oxycodone HCl (Oxyir) 5 mg PO Q4H PRN PRN PRN Reason: Pain Score 4-5/10 Polyethylene Glycol (Miralax) 17 gm PO DAILY [facility] Last Admin: 07/14/20 09:50 Dose: 17 gm Documented by: Prochlorperazine Edisylate (Compazine Iv) 5 mg IV Q4H PRN PRN PRN Reason: Breakthrough nausea/vomiting Psyllium Hydrophilic Mucilloid (Metamucil) 1 packet PO DAILY PRN PRN PRN Reason: CONSTIPATION Senna/Docusate Sodium (Senokot-S, Gilma-Colace) 2 tablet PO BID PRN PRN PRN Reason: Constipation Sodium Chloride () 10 - 40 ml IV UD PRN PRN Reason: SALINE FLUSH Tolterodine Tartrate (Detrol La) 2 mg PO DAILY [facility] Last Admin: 07/14/20 09:51 Dose: 2 mg Documented by: Medical Necessity - Tobacco Use Smoking Status: Never smoker Tobacco Use: Non-smoker Assessment/Plan All Active Problems Hyponatremia (Acute) 1. Hypovolemic hyponatremia-suspect secondary to dehydration as well as HCTZ. Increase IV fluids. Hold HCTZ. Trend BMP. 2. Recent URI symptoms-COVID negative. Denies further URI symptoms. 3. CAD with history of stent-continue Plavix, lisinopril, metoprolol. 4. Hypertension-stable, continue lisinopril, metoprolol. HCTZ on hold. 5. Hyperlipidemia-continue statin. 6. Rheumatoid arthritis- not on regimen. 7. Hypothyroidism-continue Synthroid. DVT prophylaxis- Lovenox sc This patient was seen by BRANDON Wilkins under the supervision of Dr. Treviño. <Yue Treviño - Last Filed: 07/14/20 15:44> Subjective: Pt states that she has had a poor appetite and N/V after eating for about 2 weeks. She has only been able to keep down milk and grapes. She states that she has emesis about 30 min after eating. She was moving her bowels but over the last few days she states that she has been constipated. She denies any abdominal pain and can't pinpoint if she has lost much weight. She has no other complaints. - Physical Exam Vitals/I&O's: Vital Signs Temp Pulse Resp BP Pulse Ox 97.5 F L 66 16 121/52 H 94 07/14/20 10:43 07/14/20 10:43 07/14/20 10:43 07/14/20 10:43 07/14/20 11:14 Oxygen Delivery Method Room Air Weight: 98.8 kg Body Mass Index (BMI) 35.0 Intake and Output for Last 24 Hours 07/12/20 07/13/20 07/14/20 23:59 23:59 23:59 Intake Total 1535.67 / 1535.67 Output Total 450 / 450 Balance 1085.67 / 1085.67 General: Alert, Oriented x3, Cooperative, No apparent distress, Well developed, Well nourished, - - Overweight WF sitting up in a chair watching TV and drinking milk HEENT: Atraumatic, PERRLA, EOMI, Normocephalic, EAC Clear Oral: Moist Mucosa, No Gingival or Mucosal Lesions/ Ulcerations, - - fair dentition Neck: Supple, No JVD, Negative Carotid Bruits, Negative Hepatojugular Reflux, No Nodes, No Nuchal Rigidity, Trachea Midline, Thyroid Normal Size and Texture Lungs: Clear to auscultation, Normal air movement, No rhonchi, No wheeze, No rales Cardiovascular: Regular rate, Regular Rhythm, Normal S1, Normal S2, No murmurs, No Ectopic Activity, No rub noted, No Gallop Abdomen: Bowel Sounds Present, Soft, Non Tender, Non-Distended, No Hepato-splenomegaly, Obese, No hernias noted Extremities: No clubbing, No cyanosis, No edema, Capillary Refill Less than 3 Seconds, Peripheral Pulses Normal Skin: No rashes, No breakdown, - - pale skin Lymphatic: No Cervical, Supraclavicular, or Inguinal Adenopathy Neurological: Cranial nerves II-XII grossly intact, Deep Tendon Reflexes 2+/4 and Symmetrical, Neuro grossly intact, Muscle tone normal, Coordination normal Psych/Mental Status: Normal Affect, Appropriate, Alert and oriented to time, place, person, mood and affect Laboratory Results 07/13/20 23:55: COVID-19 (WILLIAM) Negative 07/14/20 01:35: Sodium 121 L, Potassium 3.7, Chloride 87 L, Carbon Dioxide 26.0, Anion Gap 8, BUN 18, Creatinine 1.10 H, Estim Creat Clear Calc 40.09, Est GFR (MDRD) Af Amer 62, Est GFR (MDRD) Non-Af 51 L, BUN/Creatinine Ratio 16.4, Glucose 93, Calcium 9.6, Magnesium 1.5 L, Total Creatine Kinase 280 H 07/14/20 02:25: Urine Osmolality Cancelled 07/14/20 02:25: Urine Creatinine 44.80 07/14/20 02:25: U Random Total Protein < 6.0, Urine Creatinine 44.40, Protein/Creatinin Ratio 133 07/14/20 02:25: Ur Random Sodium 56, Urine Potassium 26.0, Urine Chloride 55 07/14/20 02:25: Miscellaneous Test Pending 07/14/20 09:09: WBC 9.9, RBC 3.40 L, Hgb 11.4 L, Hct 32.0 L, MCV 94.1, MCH 33.5 H, MCHC 35.6, RDW Std Deviation 48.7 H, RDW Coeff of Robin 14.3, Plt Count 247, MPV 8.5, Immature Gran % (Auto) 0.400, Neut % (Auto) 74.1 H, Lymph % (Auto) 15.9 L, [place] % (Auto) 7.8, Eos % (Auto) 1.4, Baso % (Auto) 0.4, Absolute Neuts (auto) 7.3, Absolute Lymphs (auto) 1.57, Nucleated RBC % 0 07/14/20 09:09: Sodium 121 L, Potassium 4.1, Chloride 86 L, Carbon Dioxide 27.0, Anion Gap 8, BUN 16, Creatinine 1.04 H, Estim Creat Clear Calc 42.41, Est GFR (MDRD) Af Amer 66, Est GFR (MDRD) Non-Af 55 L, BUN/Creatinine Ratio 15.4, Glucose 79, Calcium 9.1, Magnesium 2.1, Total Bilirubin 1.40 H, AST 34, ALT 27, Alkaline Phosphatase 94, Total Protein 7.0, Albumin 3.6, Globulin 3.4, Albumin/Globulin Ratio 1.1, TSH 2.11 07/14/20 09:09: Miscellaneous Test Pending Current Medications Acetaminophen (Tylenol) 650 mg PO Q6H PRN PRN PRN Reason: Pain Score 1-10/Temp > 100.7 F Al Hydroxide/Mg Hydroxide (Mylanta Ii) 30 ml PO Q6H PRN PRN PRN Reason: Gastric Burning Albuterol Sulfate (Ventolin Aerosols) 2.5 mg INHALATION Q2H PRN PRN PRN Reason: Shortness of Breath/Wheezing Allopurinol (Zyloprim) 300 mg PO DAILY [facility] Last Admin: 07/14/20 09:55 Dose: 300 mg Documented by: Aspirin (Ecotrin) 81 mg PO DAILY@0800 [facility] Last Admin: 07/14/20 09:51 Dose: 81 mg Documented by: Atorvastatin Calcium (Lipitor) 80 mg PO QHS [facility] Calamine/Phenol (Calmoseptine Ointment) 1 applic TOPICAL BID [facility]; Protocol Clopidogrel Bisulfate (Plavix) 75 mg PO DAILY [facility] Last Admin: 07/14/20 09:51 Dose: 75 mg Documented by: Enoxaparin Sodium (Lovenox) 40 mg SC DAILY [facility] Last Admin: 07/14/20 09:50 Dose: 40 mg Documented by: Guaifenesin (Robitussin) 20 ml PO Q4H PRN PRN PRN Reason: COUGH Hydralazine HCl (Apresoline Iv) 10 mg IV Q4H PRN PRN PRN Reason: SBP more than 180 mmHg Sodium Chloride () 1,000 mls @ 100 mls/hr IV .Q10H [facility] Last Admin: 07/14/20 09:52 Dose: 100 mls/hr Documented by: Levothyroxine Sodium (Synthroid) 125 mcg PO DAILY@0600 [facility] Last Admin: 07/14/20 05:01 Dose: 125 mcg Documented by: Lisinopril (Zestril) 20 mg PO DAILY [facility] Last Admin: 07/14/20 09:52 Dose: 20 mg Documented by: Melatonin (Melatonin) 3 mg PO QHS PRN PRN PRN Reason: INSOMNIA Metoprolol Succinate (Toprol Xl (Beta Yves)) 25 mg PO DAILY [facility] Last Admin: 07/14/20 09:51 Dose: 25 mg Documented by: Morphine Sulfate () 2 mg IV Q3H PRN PRN PRN Reason: Pain Score 6-10/10 Nitroglycerin (Nitrostat) 0.4 mg SUBLINGUAL Q5M PRN PRN Reason: CARDIAC/CHEST PAIN Nystatin (Mycostatin Powder) 1 applic TOPICAL BID [facility]; Protocol Ondansetron HCl (Zofran) 4 mg IV Q8H PRN PRN PRN Reason: NAUSEA/VOMITING Oxycodone HCl (Oxyir) 5 mg PO Q4H PRN PRN PRN Reason: Pain Score 4-5/10 Polyethylene Glycol (Miralax) 17 gm PO DAILY [facility] Last Admin: 07/14/20 09:50 Dose: 17 gm Documented by: Prochlorperazine Edisylate (Compazine Iv) 5 mg IV Q4H PRN PRN PRN Reason: Breakthrough nausea/vomiting Psyllium Hydrophilic Mucilloid (Metamucil) 1 packet PO DAILY PRN PRN PRN Reason: CONSTIPATION Senna/Docusate Sodium (Senokot-S, Gilma-Colace) 2 tablet PO BID PRN PRN PRN Reason: Constipation Sodium Chloride () 10 - 40 ml IV UD PRN PRN Reason: SALINE FLUSH Tolterodine Tartrate (Detrol La) 2 mg PO DAILY [facility] Last Admin: 07/14/20 09:51 Dose: 2 mg Documented by: Assessment/Plan I agree with the above and the following is a reflection of my independent history and physical exam PLAN Hyponatremia--> suspected hypovolemic Nausea and Vomiting CKD stage 3 Mild Anemia Recent URI CAD HTN HPL RA Hypothyroidism Gout Urinary Incontinence ASSESSMENT -was on NS at 50 cc/hr -increased to 100 cc/hr -repeat BMP at MN and then in am -goal is no more than 12 mEq increase in 24 hrs -awaiting serum osm -urine Na may be up 2/2 HCTZ use -hold HCTZ -unclear why she is having N/V and poor po intake -will check CT of A/P with PO contrast if able to drink, if not will need to assess with non contrasted scan start PO PPI continue all chronic home meds except for HCTZ
--- NOTE | 2020-07-14 13:20 | NURSING ---
home med list reviewed with nurse at Dr. Art's office
--- NOTE | 2020-07-14 15:31 | CT_ITS ---
STUDY: CT ABDOMEN AND PELVIS WITHOUT CONTRAST REASON FOR EXAM: Female, 75 years old. N/V X 2 WEEKS, DECREASED APPETITE RADIATION DOSAGE (If Supplied By Facility): CTDIvol = ( 31.06 ) mGy, DLP = ( 1439.66 ) mGycm TECHNIQUE: Transaxial images were obtained from the dome of the diaphragm to the symphysis pubis with oral contrast, and without intravenous contrast. Sagittal and coronal images were reconstructed. Individualized dose optimization techniques were used for this CT. COMPARISON: None. FINDINGS: Moderate dependent bibasilar atelectatic versus chronic changes. The visualized portions of the heart are within normal limits. Normal liver. Normal gallbladder and extrahepatic biliary system. Normal spleen. Normal pancreas. Normal bilateral adrenal glands. Normal right kidney. Mild hydronephrosis of the left kidney without renal, ureteral or bladder stones. Distended urinary bladder. Normal visualized stomach. Normal small intestine. Minimal diverticulosis of the colon without acute diverticulitis. The appendix is visualized and appears normal. Mild calcified plaque of the abdominal aorta. Normal inferior vena cava. Normal retroperitoneum. Distended urinary bladder. Negative for pelvic mass or free fluid of the pelvis. 6.5 x 3.5 x 6.5 cm fatty umbilical hernia with no fluid, bowel or stranding. Status post total right hip arthroplasty. Advanced degenerative changes of the lumbar spine. Levoscoliosis of the lumbar spine. CT/Abdomen/Pelvis without Cont IMPRESSION: Large volume distended urinary bladder with mild hydronephrosis of the left kidney. Nonhydronephrotic right kidney. Negative for renal, ureteral or bladder stones. Negative for mass density. Negative for pelvic mass or free fluid in the pelvis. No acute bowel related findings. Nondistended stomach, small bowel and colon with good progression of oral contrast through the small bowel. Minimal diverticulosis without evidence of acute diverticulitis. A normal appendix is identified. Unremarkable liver, spleen and pancreas with a nondistended gallbladder. 6.5 x 3.5 x 6.5 cm fatty umbilical hernia with no retained fluid, incorporated bowel or stranding. Moderate dependent bibasilar atelectatic versus chronic changes. Electronically Signed: Viola Degroot MD at 19:04 EDT , Service support ,
[2020-07-14] MEDS: Menthol/Lanolin/Calamine/Znox 113 GM Tube 1 APPLIC TOPICAL (19:34)
[2020-07-14] MEDS: Atorvastatin Calcium 80 MG Tablet PO (22:03)
[2020-07-14] MEDS: Nystatin Powder 15gm Bottle 1 APPLIC TOPICAL (22:04)
[2020-07-14] MEDS: MELATONIN 3 MG TABLET PO (23:04)
[2020-07-15] VITALS (13 sets, daily range): BP systolic 104–155; BP diastolic 53–74; PULSE 52–93; RESP 16–18; TEMP 36.4–36.8; O2SAT 96–99
[2020-07-15 00:18] LABS: Anion Gap 7 (5-15); BUN 16 mg/dL (7-18); BUN/Creat Ratio 17.1 RATIO (10-20); Chloride 91 mmol/L (98-107); Creatinine, Serum 0.94 mg/dL (0.55-1.02); EST Glomerular Filtration Rate 62 mL/min (>60); Est Glom Filt Rate - Afr Amer 75 mL/min (>60); Estimated Creatinine Clearance 46.92 ml/min; Glucose 85 mg/dL (74-106); Potassium 3.7 mmol/L (3.5-5.1); Sodium Level 124 mmol/L (136-145)
[2020-07-15] MEDS: 0.9% Normal Saline 1,000 ML 100 ML IV (05:18)
[2020-07-15] MEDS: Levothyroxine 125 MCG Tablet PO (05:19)
[2020-07-15 06:40] LABS: Anion Gap 7 (5-15); BUN 15 mg/dL (7-18); BUN/Creat Ratio 16.4 RATIO (10-20); Calcium,Total 8.8 mg/dL (8.5-10.1); Chloride 91 mmol/L (98-107); Creatinine, Serum 0.91 mg/dL (0.55-1.02); EST Glomerular Filtration Rate 64 mL/min (>60); Est Glom Filt Rate - Afr Amer 77 mL/min (>60); Estimated Creatinine Clearance 48.47 ml/min; Glucose 74 mg/dL (74-106); Potassium 3.6 mmol/L (3.5-5.1); Sodium Level 124 mmol/L (136-145)
[2020-07-15] MEDS: Lisinopril 20 MG Tablet PO (08:13)
[2020-07-15] MEDS: Enoxaparin 40 MG/0.4 ML Syringe SC (08:13)
[2020-07-15] MEDS: Allopurinol 300 MG Tablet PO (08:13)
[2020-07-15] MEDS: Metoprolol(XL)Succ 25 MG Tablet PO (08:14)
[2020-07-15] MEDS: Clopidogrel Bisulfate 75 MG Tablet PO (08:14)
[2020-07-15] MEDS: Aspirin E.C. 81 MG Tablet PO (08:14)
[2020-07-15] MEDS: Menthol/Lanolin/Calamine/Znox 113 GM Tube 1 APPLIC TOPICAL ×2 (08:15→21:11)
[2020-07-15] MEDS: Nystatin Powder 15gm Bottle 1 APPLIC TOPICAL ×2 (08:16→21:12)
[2020-07-15] MEDS: Pantoprazole Sodium 40 MG Tablet PO (08:20)
[2020-07-15] MEDS: Polyethylene Glycol 3350 17 GM PACKET PO (08:20)
[2020-07-15 10:56] LABS: Bacteria 0 SEEN /hpf (None Seen); Mucous, Urine 0 SEEN /hpf (<or=2+); Red Blood Cells-Urine 0 SEEN /hpf (0-5); Squamous Epithelial Cells - UA 0 SEEN /hpf (5-10)
[2020-07-15 11:08] LABS: Color, Urine Yellow (Yellow); Glucose, Dipstick Normal (Normal); Ketone-Dipstick Negative (Negative); Leukocyte Esterase-Dipstick 100 /ul (Negative); Nitrite-Dipstick Negative (Negative); Occult Blood-Urine 25 /ul (Negative); Protein-Dipstick Negative (Negative); Urine Bilirubin Dipstick Negative (Negative); Urine Clarity Clear (Clear); Urine Urobilinogen Normal (Normal)
[2020-07-15 11:15] LABS: White Blood Cells 0-5 SEEN /hpf (0-5)
--- NOTE | 2020-07-15 11:22 | PCM.PROGNOTE ---
<Sheila Armendariz - Last Filed: 07/15/20 11:32> Patient Problems: Active and Suspected Problems Hyponatremia (Acute) Subjective: Patient seen and examined. Reported difficulty urinating this morning. Noted to have urinary retention and Elizalde catheter placed with 1500 cc return of urine. Patient denies other symptoms or complaints at this time. She has not yet attempted breakfast to assess for nausea, vomiting. - Physical Exam Vitals/I&O's: Vital Signs Temp Pulse Resp BP Pulse Ox 97.5 F L 64 18 125/64 H 97 07/15/20 07:55 07/15/20 08:14 07/15/20 07:55 07/15/20 07:55 07/15/20 07:55 Oxygen Delivery Method Room Air Weight: 218 lb 0.595 oz Body Mass Index (BMI) 35.0 Intake and Output for Last 24 Hours 07/13/20 07/14/20 07/15/20 23:59 23:59 23:59 Intake Total 3109.00 / 3109.00 1170.00 / 1170.00 Output Total 1000 / 1000 1500 / 1500 Balance 2109.00 / 2109.00 -330.00 / -330.00 General: Alert, Oriented x3, Cooperative HEENT: Atraumatic, PERRLA, EOMI, Normocephalic Neck: Supple, No JVD, Negative Carotid Bruits Lungs: Clear to auscultation, Normal air movement Cardiovascular: Regular rate, No murmurs Abdomen: Bowel Sounds Present, Soft, Non Tender, Non-Distended Extremities: No clubbing, No cyanosis, No edema, Capillary Refill Less than 3 Seconds Skin: No rashes, No breakdown Musculoskeletal: No Tenderness to Palpation of Joints or Extremities Neurological: Cranial nerves II-XII grossly intact, Neuro grossly intact Psych/Mental Status: Normal Affect, Appropriate Laboratory Results 07/14/20 02:25: Miscellaneous Test Pending 07/15/20 00:00: Sodium 124 L, Potassium 3.7, Chloride 91 L, Carbon Dioxide 26.0, Anion Gap 7, BUN 16, Creatinine 0.94, Estim Creat Clear Calc 46.92, Est GFR (MDRD) Af Amer 75, Est GFR (MDRD) Non-Af 62, BUN/Creatinine Ratio 17.1, Glucose 85, Calcium 9.0 07/15/20 02:25: Urine Osmolality Cancelled 07/15/20 05:30: Sodium 124 L, Potassium 3.6, Chloride 91 L, Carbon Dioxide 26.0, Anion Gap 7, BUN 15, Creatinine 0.91, Estim Creat Clear Calc 48.47, Est GFR (MDRD) Af Amer 77, Est GFR (MDRD) Non-Af 64, BUN/Creatinine Ratio 16.4, Glucose 74, Calcium 8.8 07/15/20 09:33: Serum Osmolality Cancelled 07/15/20 09:33: Miscellaneous Test Pending 07/15/20 10:50: Urine Color Yellow, Urine Clarity Clear, Urine pH 6.0, Ur Specific [place] 1.010, Urine Protein Negative, Urine Glucose (UA) Normal, Urine Ketones Negative, Urine Occult Blood 25 H, Urine Nitrite Negative, Urine Bilirubin Negative, Urine Urobilinogen Normal, Ur Leukocyte Esterase 100 H, Urine RBC 0 SEEN, Urine WBC 0-5 SEEN, Ur Squamous Epith Cells 0 SEEN, Urine Bacteria 0 SEEN, Urine Mucus 0 SEEN Current Medications Acetaminophen (Tylenol) 650 mg PO Q6H PRN PRN PRN Reason: Pain Score 1-10/Temp > 100.7 F Al Hydroxide/Mg Hydroxide (Mylanta Ii) 30 ml PO Q6H PRN PRN PRN Reason: Gastric Burning Albuterol Sulfate (Ventolin Aerosols) 2.5 mg INHALATION Q2H PRN PRN PRN Reason: Shortness of Breath/Wheezing Allopurinol (Zyloprim) 300 mg PO DAILY [facility] Last Admin: 07/15/20 08:13 Dose: 300 mg Documented by: Aspirin (Ecotrin) 81 mg PO DAILY@0800 [facility] Last Admin: 07/15/20 08:14 Dose: 81 mg Documented by: Atorvastatin Calcium (Lipitor) 80 mg PO QHS [facility] Last Admin: 07/14/20 22:03 Dose: 80 mg Documented by: Calamine/Phenol (Calmoseptine Ointment) 1 applic TOPICAL BID [facility]; Protocol Last Admin: 07/15/20 08:15 Dose: 1 applicatio Documented by: Clopidogrel Bisulfate (Plavix) 75 mg PO DAILY [facility] Last Admin: 07/15/20 08:14 Dose: 75 mg Documented by: Enoxaparin Sodium (Lovenox) 40 mg SC DAILY [facility] Last Admin: 07/15/20 08:13 Dose: 40 mg Documented by: Guaifenesin (Robitussin) 20 ml PO Q4H PRN PRN PRN Reason: COUGH Hydralazine HCl (Apresoline Iv) 10 mg IV Q4H PRN PRN PRN Reason: SBP more than 180 mmHg Levothyroxine Sodium (Synthroid) 125 mcg PO DAILY@0600 [facility] Last Admin: 07/15/20 05:19 Dose: 125 mcg Documented by: Lisinopril (Zestril) 20 mg PO DAILY [facility] Last Admin: 07/15/20 08:13 Dose: 20 mg Documented by: Melatonin (Melatonin) 3 mg PO QHS PRN PRN PRN Reason: INSOMNIA Last Admin: 07/14/20 23:04 Dose: 3 mg Documented by: Metoprolol Succinate (Toprol Xl (Beta Yves)) 25 mg PO DAILY [facility] Last Admin: 07/15/20 08:14 Dose: 25 mg Documented by: Morphine Sulfate () 2 mg IV Q3H PRN PRN PRN Reason: Pain Score 6-10/10 Nitroglycerin (Nitrostat) 0.4 mg SUBLINGUAL Q5M PRN PRN Reason: CARDIAC/CHEST PAIN Nystatin (Mycostatin Powder) 1 applic TOPICAL BID [facility]; Protocol Last Admin: 07/15/20 08:16 Dose: 1 applicatio Documented by: Ondansetron HCl (Zofran) 4 mg IV Q8H PRN PRN PRN Reason: NAUSEA/VOMITING Oxycodone HCl (Oxyir) 5 mg PO Q4H PRN PRN PRN Reason: Pain Score 4-5/10 Pantoprazole Sodium (Protonix) 40 mg PO DAILY [facility] Last Admin: 07/15/20 08:20 Dose: 40 mg Documented by: Polyethylene Glycol (Miralax) 17 gm PO DAILY [facility] Last Admin: 07/15/20 08:20 Dose: 17 gm Documented by: Prochlorperazine Edisylate (Compazine Iv) 5 mg IV Q4H PRN PRN PRN Reason: Breakthrough nausea/vomiting Psyllium Hydrophilic Mucilloid (Metamucil) 1 packet PO DAILY PRN PRN PRN Reason: CONSTIPATION Senna/Docusate Sodium (Senokot-S, Gilma-Colace) 2 tablet PO BID PRN PRN PRN Reason: Constipation Sodium Chloride () 10 - 40 ml IV UD PRN PRN Reason: SALINE FLUSH Tamsulosin HCl (Flomax) 0.4 mg PO DAILY@1730 [facility] Medical Necessity - Tobacco Use Smoking Status: Never smoker Tobacco Use: Non-smoker Assessment/Plan All Active Problems Hyponatremia (Acute) 1. Hypovolemic hyponatremia-suspect secondary to dehydration as well as HCTZ. Continue IV fluids. Hold HCTZ. Trend BMP. Urine osmolality and serum osmolality pending. 2. Recent URI symptoms-COVID negative. Denies further URI symptoms. 3. Nausea/vomiting/poor oral intake-unclear etiology. Initiated on PPI. CT of abdomen and pelvis showed distended urinary bladder with mild hydronephrosis on the left. Otherwise unremarkable. If no improvement with PPI, will consider general surgery consult for upper endoscopy. 4. CAD with history of stent-continue Plavix, lisinopril, metoprolol. 5. Hypertension-stable, continue lisinopril, metoprolol. HCTZ on hold. 6. Hyperlipidemia-continue statin. 7. Rheumatoid arthritis- not on regimen. 8. Hypothyroidism-continue Synthroid. DVT prophylaxis- Lovenox sc This patient was seen by BRANDON Wilkins under the supervision of Dr. Treviño. <Yue Treviño - Last Filed: 07/15/20 12:08> Subjective: Still with occasional nausea and emesis but still denies pain. Feeling ok otherwise. PO intake remains poor. - Physical Exam Vitals/I&O's: Vital Signs Temp Pulse Resp BP Pulse Ox 97.5 F L 64 18 125/64 H 97 07/15/20 07:55 07/15/20 08:14 07/15/20 07:55 07/15/20 07:55 07/15/20 07:55 Oxygen Delivery Method Room Air Weight: 98.9 kg Body Mass Index (BMI) 35.0 Intake and Output for Last 24 Hours 07/13/20 07/14/20 07/15/20 23:59 23:59 23:59 Intake Total 3109.00 / 3109.00 1170.00 / 1170.00 Output Total 1000 / 1000 1500 / 1500 Balance 2109.00 / 2109.00 -330.00 / -330.00 General: Alert, Oriented x3, Cooperative, No apparent distress, Well developed, Well nourished HEENT: Atraumatic, EOMI, Normocephalic, EAC Clear Oral: Moist Mucosa, No Gingival or Mucosal Lesions/ Ulcerations, - - fair dentition Neck: Supple, No JVD, No Nodes, Trachea Midline, Thyroid Normal Size and Texture Lungs: Clear to auscultation, Normal air movement, No rhonchi, No wheeze, No rales Cardiovascular: Regular rate, Regular Rhythm, Normal S1, Normal S2, No murmurs, No Ectopic Activity, No rub noted, No Gallop Abdomen: Bowel Sounds Present, Soft, Non Tender, Non-Distended Extremities: No clubbing, No cyanosis, No edema, Capillary Refill Less than 3 Seconds, Peripheral Pulses Normal Skin: No rashes, No breakdown, - - pale Musculoskeletal: No Tenderness to Palpation of Joints or Extremities, No Muscle Wasting, Arthritic Changes - significant B hands Lymphatic: No Cervical, Supraclavicular, or Inguinal Adenopathy Neurological: Cranial nerves II-XII grossly intact, Neuro grossly intact, Muscle tone normal, Sensory exam intact to light touch and pain, Coordination normal Psych/Mental Status: Normal Affect, Appropriate, - - very pleasant, Alert and oriented to time, place, person, mood and affect Laboratory Results 07/14/20 02:25: Miscellaneous Test Pending 07/15/20 00:00: Sodium 124 L, Potassium 3.7, Chloride 91 L, Carbon Dioxide 26.0, Anion Gap 7, BUN 16, Creatinine 0.94, Estim Creat Clear Calc 46.92, Est GFR (MDRD) Af Amer 75, Est GFR (MDRD) Non-Af 62, BUN/Creatinine Ratio 17.1, Glucose 85, Calcium 9.0 07/15/20 02:25: Urine Osmolality Cancelled 07/15/20 05:30: Sodium 124 L, Potassium 3.6, Chloride 91 L, Carbon Dioxide 26.0, Anion Gap 7, BUN 15, Creatinine 0.91, Estim Creat Clear Calc 48.47, Est GFR (MDRD) Af Amer 77, Est GFR (MDRD) Non-Af 64, BUN/Creatinine Ratio 16.4, Glucose 74, Calcium 8.8 07/15/20 09:33: Serum Osmolality Cancelled 07/15/20 09:33: Miscellaneous Test Pending 07/15/20 10:50: Urine Color Yellow, Urine Clarity Clear, Urine pH 6.0, Ur Specific [place] 1.010, Urine Protein Negative, Urine Glucose (UA) Normal, Urine Ketones Negative, Urine Occult Blood 25 H, Urine Nitrite Negative, Urine Bilirubin Negative, Urine Urobilinogen Normal, Ur Leukocyte Esterase 100 H, Urine RBC 0 SEEN, Urine WBC 0-5 SEEN, Ur Squamous Epith Cells 0 SEEN, Urine Bacteria 0 SEEN, Urine Mucus 0 SEEN 07/15/20 11:30: Sodium Pending, Potassium Pending, Chloride Pending, Carbon Dioxide Pending, Anion Gap Pending, BUN Pending, Creatinine Pending, Est GFR (MDRD) Af Amer Pending, Est GFR (MDRD) Non-Af Pending, BUN/Creatinine Ratio Pending, Glucose Pending, Calcium Pending Current Medications Acetaminophen (Tylenol) 650 mg PO Q6H PRN PRN PRN Reason: Pain Score 1-10/Temp > 100.7 F Al Hydroxide/Mg Hydroxide (Mylanta Ii) 30 ml PO Q6H PRN PRN PRN Reason: Gastric Burning Albuterol Sulfate (Ventolin Aerosols) 2.5 mg INHALATION Q2H PRN PRN PRN Reason: Shortness of Breath/Wheezing Allopurinol (Zyloprim) 300 mg PO DAILY [facility] Last Admin: 07/15/20 08:13 Dose: 300 mg Documented by: Aspirin (Ecotrin) 81 mg PO DAILY@0800 [facility] Last Admin: 07/15/20 08:14 Dose: 81 mg Documented by: Atorvastatin Calcium (Lipitor) 80 mg PO QHS [facility] Last Admin: 07/14/20 22:03 Dose: 80 mg Documented by: Calamine/Phenol (Calmoseptine Ointment) 1 applic TOPICAL BID [facility]; Protocol Last Admin: 07/15/20 08:15 Dose: 1 applicatio Documented by: Clopidogrel Bisulfate (Plavix) 75 mg PO DAILY [facility] Last Admin: 07/15/20 08:14 Dose: 75 mg Documented by: Enoxaparin Sodium (Lovenox) 40 mg SC DAILY [facility] Last Admin: 07/15/20 08:13 Dose: 40 mg Documented by: Guaifenesin (Robitussin) 20 ml PO Q4H PRN PRN PRN Reason: COUGH Hydralazine HCl (Apresoline Iv) 10 mg IV Q4H PRN PRN PRN Reason: SBP more than 180 mmHg Levothyroxine Sodium (Synthroid) 125 mcg PO DAILY@0600 [facility] Last Admin: 07/15/20 05:19 Dose: 125 mcg Documented by: Lisinopril (Zestril) 20 mg PO DAILY [facility] Last Admin: 07/15/20 08:13 Dose: 20 mg Documented by: Melatonin (Melatonin) 3 mg PO QHS PRN PRN PRN Reason: INSOMNIA Last Admin: 07/14/20 23:04 Dose: 3 mg Documented by: Metoprolol Succinate (Toprol Xl (Beta Yves)) 25 mg PO DAILY [facility] Last Admin: 07/15/20 08:14 Dose: 25 mg Documented by: Morphine Sulfate () 2 mg IV Q3H PRN PRN PRN Reason: Pain Score 6-10/10 Nitroglycerin (Nitrostat) 0.4 mg SUBLINGUAL Q5M PRN PRN Reason: CARDIAC/CHEST PAIN Nystatin (Mycostatin Powder) 1 applic TOPICAL BID [facility]; Protocol Last Admin: 07/15/20 08:16 Dose: 1 applicatio Documented by: Ondansetron HCl (Zofran) 4 mg IV Q8H PRN PRN PRN Reason: NAUSEA/VOMITING Oxycodone HCl (Oxyir) 5 mg PO Q4H PRN PRN PRN Reason: Pain Score 4-5/10 Pantoprazole Sodium (Protonix) 40 mg PO DAILY [facility] Last Admin: 07/15/20 08:20 Dose: 40 mg Documented by: Polyethylene Glycol (Miralax) 17 gm PO DAILY [facility] Last Admin: 07/15/20 08:20 Dose: 17 gm Documented by: Prochlorperazine Edisylate (Compazine Iv) 5 mg IV Q4H PRN PRN PRN Reason: Breakthrough nausea/vomiting Psyllium Hydrophilic Mucilloid (Metamucil) 1 packet PO DAILY PRN PRN PRN Reason: CONSTIPATION Senna/Docusate Sodium (Senokot-S, Gilma-Colace) 2 tablet PO BID PRN PRN PRN Reason: Constipation Sodium Chloride () 10 - 40 ml IV UD PRN PRN Reason: SALINE FLUSH Tamsulosin HCl (Flomax) 0.4 mg PO DAILY@1730 [facility] Assessment/Plan I agree with the above and the following is a reflection of my independent history and physical exam PLAN Hyponatremia--> suspected hypovolemic Nausea and Vomiting CKD stage 3 Urinary retention-acute Mild L Hydronephrosis Mild Anemia Recent URI CAD HTN HPL RA Hypothyroidism Gout Urinary Incontinence ASSESSMENT -d/c IVF -Na up to 124 today -1 1/2 life of HCTZ can be up to 14 hrs--> should be cleared soon -BMP pending for today at 12 and will order f/u from there -serum osm is still pending result -Elzialde placed for retention -d/c oxybutinin--> ? reason for retention -start flomax -1500 out immediately with elizalde placement -Etiology of nausea/vomiting/poor po intake is still unclear -CT unrevealing for cause -good transition of contrast -GB looked good -Start PPI and if PO intake not improving will consider GS consult for EGD
[2020-07-15 12:01] LABS: Anion Gap 5 (5-15); BUN 14 mg/dL (7-18); BUN/Creat Ratio 14.4 RATIO (10-20); Calcium,Total 9.6 mg/dL (8.5-10.1); Chloride 94 mmol/L (98-107); Creatinine, Serum 0.97 mg/dL (0.55-1.02); EST Glomerular Filtration Rate 59 mL/min (>60); Est Glom Filt Rate - Afr Amer 72 mL/min (>60); Estimated Creatinine Clearance 45.47 ml/min; Glucose 91 mg/dL (74-106); Potassium 4.7 mmol/L (3.5-5.1); Sodium Level 127 mmol/L (136-145)
[2020-07-15] MEDS: Tamsulosin HCl 0.4 MG Capsule PO (17:06)
[2020-07-15] MEDS: Atorvastatin Calcium 80 MG Tablet PO (21:10)
[2020-07-15] MEDS: MELATONIN 3 MG TABLET PO (23:53)
[2020-07-16] VITALS (10 sets, daily range): BP systolic 106–135; BP diastolic 53–72; PULSE 57–95; RESP 16–18; TEMP 36.4–36.8; O2SAT 93–100
[2020-07-16] MEDS: Levothyroxine 125 MCG Tablet PO (05:38)
[2020-07-16 06:00] LABS: Anion Gap 8 (5-15); BUN 15 mg/dL (7-18); Calcium,Total 8.9 mg/dL (8.5-10.1); Chloride 93 mmol/L (98-107); Creatinine, Serum 1.15 mg/dL (0.55-1.02); EST Glomerular Filtration Rate 49 mL/min (>60); Est Glom Filt Rate - Afr Amer 59 mL/min (>60); Estimated Creatinine Clearance 38.35 ml/min; Glucose 116 mg/dL (74-106); Sodium Level 126 mmol/L (136-145)
[2020-07-16] MEDS: 0.9% Normal Saline 1,000 ML 150 ML IV ×3 (07:04→21:10)
[2020-07-16] MEDS: Enoxaparin 40 MG/0.4 ML Syringe SC (09:05)
[2020-07-16] MEDS: Aspirin E.C. 81 MG Tablet PO (09:05)
[2020-07-16] MEDS: Clopidogrel Bisulfate 75 MG Tablet PO (09:05)
[2020-07-16] MEDS: Menthol/Lanolin/Calamine/Znox 113 GM Tube 1 APPLIC TOPICAL ×2 (09:06→21:00)
[2020-07-16] MEDS: Allopurinol 300 MG Tablet PO (09:06)
[2020-07-16] MEDS: Pantoprazole Sodium 40 MG Tablet PO (09:06)
[2020-07-16] MEDS: Lisinopril 20 MG Tablet PO (09:06)
[2020-07-16] MEDS: Nystatin Powder 15gm Bottle 1 APPLIC TOPICAL ×2 (09:07→21:00)
[2020-07-16] MEDS: Polyethylene Glycol 3350 17 GM PACKET PO (09:09)
[2020-07-16] MEDS: Metoprolol(XL)Succ 25 MG Tablet PO (09:11)
--- NOTE | 2020-07-16 10:50 | PCM.PROGNOTE ---
<Sheila Armendariz - Last Filed: 07/16/20 11:02> Patient Problems: Active and Suspected Problems Hyponatremia (Acute) Subjective: Patient seen and examined. Nursing reports confusion overnight. Patient alert and oriented this morning. States that she ate well yesterday with no further nausea/vomiting. Denies other complaints. - Physical Exam Vitals/I&O's: Vital Signs Temp Pulse Resp BP Pulse Ox 98.2 F 87 18 135/72 H 100 07/16/20 09:15 07/16/20 09:15 07/16/20 09:15 07/16/20 09:15 07/16/20 09:15 Oxygen Delivery Method Room Air Weight: 217 lb Body Mass Index (BMI) 35.0 Intake and Output for Last 24 Hours 07/14/20 07/15/20 07/16/20 23:59 23:59 23:59 Intake Total 3109.00 / 3109.00 1270.00 / 1270.00 100 / 100 Output Total 1000 / 1000 3550 / 3550 400 / 400 Balance 2109.00 / 2109.00 -2280.00 / -2280.00 -300 / -300 General: Alert, Oriented x3, Cooperative HEENT: Atraumatic, PERRLA, EOMI, Normocephalic Neck: Supple, No JVD, Negative Carotid Bruits Lungs: Clear to auscultation, Normal air movement Cardiovascular: Regular rate, No murmurs Abdomen: Bowel Sounds Present, Soft, Non Tender, Non-Distended Extremities: No clubbing, No cyanosis, No edema, Capillary Refill Less than 3 Seconds Skin: No rashes, No breakdown Musculoskeletal: No Tenderness to Palpation of Joints or Extremities Neurological: Cranial nerves II-XII grossly intact, Neuro grossly intact Psych/Mental Status: Flat Affect Laboratory Results 07/15/20 10:50: Urine Color Yellow, Urine Clarity Clear, Urine pH 6.0, Ur Specific [place] 1.010, Urine Protein Negative, Urine Glucose (UA) Normal, Urine Ketones Negative, Urine Occult Blood 25 H, Urine Nitrite Negative, Urine Bilirubin Negative, Urine Urobilinogen Normal, Ur Leukocyte Esterase 100 H, Urine RBC 0 SEEN, Urine WBC 0-5 SEEN, Ur Squamous Epith Cells 0 SEEN, Urine Bacteria 0 SEEN, Urine Mucus 0 SEEN 07/15/20 11:30: Sodium 127 L, Potassium 4.7, Chloride 94 L, Carbon Dioxide 28.0, Anion Gap 5, BUN 14, Creatinine 0.97, Estim Creat Clear Calc 45.47, Est GFR (MDRD) Af Amer 72, Est GFR (MDRD) Non-Af 59 L, BUN/Creatinine Ratio 14.4, Glucose 91, Calcium 9.6 07/16/20 05:05: Sodium 126 L, Potassium 4.0, Chloride 93 L, Carbon Dioxide 25.0, Anion Gap 8, BUN 15, Creatinine 1.15 H, Estim Creat Clear Calc 38.35, Est GFR (MDRD) Af Amer 59 L, Est GFR (MDRD) Non-Af 49 L, BUN/Creatinine Ratio 13.0, Glucose 116 H, Calcium 8.9 Current Medications Acetaminophen (Tylenol) 650 mg PO Q6H PRN PRN PRN Reason: Pain Score 1-10/Temp > 100.7 F Al Hydroxide/Mg Hydroxide (Mylanta Ii) 30 ml PO Q6H PRN PRN PRN Reason: Gastric Burning Albuterol Sulfate (Ventolin Aerosols) 2.5 mg INHALATION Q2H PRN PRN PRN Reason: Shortness of Breath/Wheezing Allopurinol (Zyloprim) 300 mg PO DAILY [facility] Last Admin: 07/16/20 09:06 Dose: 300 mg Documented by: Aspirin (Ecotrin) 81 mg PO DAILY@0800 [facility] Last Admin: 07/16/20 09:05 Dose: 81 mg Documented by: Atorvastatin Calcium (Lipitor) 80 mg PO QHS [facility] Last Admin: 07/15/20 21:10 Dose: 80 mg Documented by: Calamine/Phenol (Calmoseptine Ointment) 1 applic TOPICAL BID [facility]; Protocol Last Admin: 07/16/20 09:06 Dose: 1 applicatio Documented by: Clopidogrel Bisulfate (Plavix) 75 mg PO DAILY [facility] Last Admin: 07/16/20 09:05 Dose: 75 mg Documented by: Enoxaparin Sodium (Lovenox) 40 mg SC DAILY [facility] Last Admin: 07/16/20 09:05 Dose: 40 mg Documented by: Guaifenesin (Robitussin) 20 ml PO Q4H PRN PRN PRN Reason: COUGH Hydralazine HCl (Apresoline Iv) 10 mg IV Q4H PRN PRN PRN Reason: SBP more than 180 mmHg Sodium Chloride () 1,000 mls @ 150 mls/hr IV .Q6H40M [facility] Last Admin: 07/16/20 07:04 Dose: 150 mls/hr Documented by: Levothyroxine Sodium (Synthroid) 125 mcg PO DAILY@0600 [facility] Last Admin: 07/16/20 05:38 Dose: 125 mcg Documented by: Lisinopril (Zestril) 20 mg PO DAILY [facility] Last Admin: 07/16/20 09:06 Dose: 20 mg Documented by: Melatonin (Melatonin) 3 mg PO QHS PRN PRN PRN Reason: INSOMNIA Last Admin: 07/15/20 23:53 Dose: 3 mg Documented by: Metoprolol Succinate (Toprol Xl (Beta Yves)) 25 mg PO DAILY [facility] Last Admin: 07/16/20 09:11 Dose: 25 mg Documented by: Morphine Sulfate () 2 mg IV Q3H PRN PRN PRN Reason: Pain Score 6-10/10 Nitroglycerin (Nitrostat) 0.4 mg SUBLINGUAL Q5M PRN PRN Reason: CARDIAC/CHEST PAIN Nystatin (Mycostatin Powder) 1 applic TOPICAL BID [facility]; Protocol Last Admin: 07/16/20 09:07 Dose: 1 applicatio Documented by: Ondansetron HCl (Zofran) 4 mg IV Q8H PRN PRN PRN Reason: NAUSEA/VOMITING Oxycodone HCl (Oxyir) 5 mg PO Q4H PRN PRN PRN Reason: Pain Score 4-5/10 Pantoprazole Sodium (Protonix) 40 mg PO DAILY [facility] Last Admin: 07/16/20 09:06 Dose: 40 mg Documented by: Polyethylene Glycol (Miralax) 17 gm PO DAILY [facility] Last Admin: 07/16/20 09:09 Dose: 17 gm Documented by: Prochlorperazine Edisylate (Compazine Iv) 5 mg IV Q4H PRN PRN PRN Reason: Breakthrough nausea/vomiting Psyllium Hydrophilic Mucilloid (Metamucil) 1 packet PO DAILY PRN PRN PRN Reason: CONSTIPATION Senna/Docusate Sodium (Senokot-S, Gilma-Colace) 2 tablet PO BID PRN PRN PRN Reason: Constipation Sodium Chloride () 10 - 40 ml IV UD PRN PRN Reason: SALINE FLUSH Tamsulosin HCl (Flomax) 0.4 mg PO DAILY@1730 [facility] Last Admin: 07/15/20 17:06 Dose: 0.4 mg Documented by: Medical Necessity - Tobacco Use Smoking Status: Never smoker Tobacco Use: Non-smoker Assessment/Plan All Active Problems Hyponatremia (Acute) 1. Acute hyponatremia-Suspect secondary to dehydration as well as HCTZ vs other etiology. Continue IV fluids. Hold HCTZ. Trend BMP. Urine osmolality and serum osmolality pending to further delineate. 2. Recent URI symptoms-COVID negative. Denies further URI symptoms. 3. Nausea/vomiting/poor oral intake-unclear etiology. Initiated on PPI with improvement in symptoms. CT of abdomen and pelvis showed distended urinary bladder with mild hydronephrosis on the left. Otherwise unremarkable. Calorie count. If continued improvement, will plan for outpatient follow-up for upper endoscopy/GI referral. 4. CAD with history of stent-continue Plavix, lisinopril, metoprolol. 5. Hypertension-stable, continue lisinopril, metoprolol. HCTZ on hold. 6. Hyperlipidemia-continue statin. 7. Rheumatoid arthritis- not on regimen. 8. Hypothyroidism-continue Synthroid. DVT prophylaxis- Lovenox sc This patient was seen by BRANDON Wilkins under the supervision of Dr. Treviño. <Yue Treviño - Last Filed: 07/16/20 11:56> Subjective: States that she was able to eat soup last pm and cereal for breakfast without nausea. Confused last pm per nsg but no issues this am with me. - Physical Exam Vitals/I&O's: Vital Signs Temp Pulse Resp BP Pulse Ox 98.2 F 87 18 135/72 H 100 07/16/20 09:15 07/16/20 09:15 07/16/20 09:15 07/16/20 09:15 07/16/20 09:15 Oxygen Delivery Method Room Air Weight: 98.43 kg Body Mass Index (BMI) 35.0 Intake and Output for Last 24 Hours 07/14/20 07/15/20 07/16/20 23:59 23:59 23:59 Intake Total 3109.00 / 3109.00 1270.00 / 1270.00 100 / 100 Output Total 1000 / 1000 3550 / 3550 400 / 400 Balance 2109.00 / 2109.00 -2280.00 / -2280.00 -300 / -300 General: Alert, Oriented x3, Cooperative, No apparent distress, Well developed, Well nourished, - - overweight WF sitting up in a chair, watching TV and looking at the lunch menu Lungs: Clear to auscultation, Normal air movement, No rhonchi, No wheeze, No rales Cardiovascular: Regular rate, Regular Rhythm, Normal S1, Normal S2, No murmurs, No Ectopic Activity, No rub noted, No Gallop Abdomen: Bowel Sounds Present, Soft, Non Tender, Non-Distended Extremities: No clubbing, No edema, Capillary Refill Less than 3 Seconds, Peripheral Pulses Normal Neurological: Cranial nerves II-XII grossly intact, Neuro grossly intact Psych/Mental Status: Appropriate, Flat Affect, - - A&O x4 Laboratory Results 07/15/20 11:30: Sodium 127 L, Potassium 4.7, Chloride 94 L, Carbon Dioxide 28.0, Anion Gap 5, BUN 14, Creatinine 0.97, Estim Creat Clear Calc 45.47, Est GFR (MDRD) Af Amer 72, Est GFR (MDRD) Non-Af 59 L, BUN/Creatinine Ratio 14.4, Glucose 91, Calcium 9.6 07/16/20 05:05: Sodium 126 L, Potassium 4.0, Chloride 93 L, Carbon Dioxide 25.0, Anion Gap 8, BUN 15, Creatinine 1.15 H, Estim Creat Clear Calc 38.35, Est GFR (MDRD) Af Amer 59 L, Est GFR (MDRD) Non-Af 49 L, BUN/Creatinine Ratio 13.0, Glucose 116 H, Calcium 8.9 Current Medications Acetaminophen (Tylenol) 650 mg PO Q6H PRN PRN PRN Reason: Pain Score 1-10/Temp > 100.7 F Al Hydroxide/Mg Hydroxide (Mylanta Ii) 30 ml PO Q6H PRN PRN PRN Reason: Gastric Burning Albuterol Sulfate (Ventolin Aerosols) 2.5 mg INHALATION Q2H PRN PRN PRN Reason: Shortness of Breath/Wheezing Allopurinol (Zyloprim) 300 mg PO DAILY [facility] Last Admin: 07/16/20 09:06 Dose: 300 mg Documented by: Aspirin (Ecotrin) 81 mg PO DAILY@0800 [facility] Last Admin: 07/16/20 09:05 Dose: 81 mg Documented by: Atorvastatin Calcium (Lipitor) 80 mg PO QHS [facility] Last Admin: 07/15/20 21:10 Dose: 80 mg Documented by: Calamine/Phenol (Calmoseptine Ointment) 1 applic TOPICAL BID [facility]; Protocol Last Admin: 07/16/20 09:06 Dose: 1 applicatio Documented by: Clopidogrel Bisulfate (Plavix) 75 mg PO DAILY [facility] Last Admin: 07/16/20 09:05 Dose: 75 mg Documented by: Enoxaparin Sodium (Lovenox) 40 mg SC DAILY [facility] Last Admin: 07/16/20 09:05 Dose: 40 mg Documented by: Guaifenesin (Robitussin) 20 ml PO Q4H PRN PRN PRN Reason: COUGH Hydralazine HCl (Apresoline Iv) 10 mg IV Q4H PRN PRN PRN Reason: SBP more than 180 mmHg Sodium Chloride () 1,000 mls @ 150 mls/hr IV .Q6H40M [facility] Last Admin: 07/16/20 07:04 Dose: 150 mls/hr Documented by: Levothyroxine Sodium (Synthroid) 125 mcg PO DAILY@0600 [facility] Last Admin: 07/16/20 05:38 Dose: 125 mcg Documented by: Lisinopril (Zestril) 20 mg PO DAILY [facility] Last Admin: 07/16/20 09:06 Dose: 20 mg Documented by: Melatonin (Melatonin) 3 mg PO QHS PRN PRN PRN Reason: INSOMNIA Last Admin: 07/15/20 23:53 Dose: 3 mg Documented by: Metoprolol Succinate (Toprol Xl (Beta Yves)) 25 mg PO DAILY [facility] Last Admin: 07/16/20 09:11 Dose: 25 mg Documented by: Morphine Sulfate () 2 mg IV Q3H PRN PRN PRN Reason: Pain Score 6-10/10 Nitroglycerin (Nitrostat) 0.4 mg SUBLINGUAL Q5M PRN PRN Reason: CARDIAC/CHEST PAIN Nystatin (Mycostatin Powder) 1 applic TOPICAL BID [facility]; Protocol Last Admin: 07/16/20 09:07 Dose: 1 applicatio Documented by: Ondansetron HCl (Zofran) 4 mg IV Q8H PRN PRN PRN Reason: NAUSEA/VOMITING Oxycodone HCl (Oxyir) 5 mg PO Q4H PRN PRN PRN Reason: Pain Score 4-5/10 Pantoprazole Sodium (Protonix) 40 mg PO DAILY [facility] Last Admin: 07/16/20 09:06 Dose: 40 mg Documented by: Polyethylene Glycol (Miralax) 17 gm PO DAILY [facility] Last Admin: 07/16/20 09:09 Dose: 17 gm Documented by: Prochlorperazine Edisylate (Compazine Iv) 5 mg IV Q4H PRN PRN PRN Reason: Breakthrough nausea/vomiting Psyllium Hydrophilic Mucilloid (Metamucil) 1 packet PO DAILY PRN PRN PRN Reason: CONSTIPATION Senna/Docusate Sodium (Senokot-S, Gilma-Colace) 2 tablet PO BID PRN PRN PRN Reason: Constipation Sodium Chloride () 10 - 40 ml IV UD PRN PRN Reason: SALINE FLUSH Tamsulosin HCl (Flomax) 0.4 mg PO DAILY@1730 [facility] Last Admin: 07/15/20 17:06 Dose: 0.4 mg Documented by: Assessment/Plan Hyponatremia--> suspected hypovolemic Nausea and Vomiting JIMY on CKD stage 3 Urinary retention-acute Mild L Hydronephrosis Mild Anemia Recent URI CAD HTN HPL RA Hypothyroidism Gout Urinary Incontinence ASSESSMENT -restart IVF with elevated sCr today--> ? related to retention or decreased fluid intake -Na 126 this am -will repeat at noon -serum osmolality still pending--> per lab it was a sent out -repeat am lab - -Elizalde placed for retention -d/c oxybutinin 07/15--> ? reason for retention -flomax -1500 out immediately with elizalde placement -will try removal and voiding trials with bladder scan tomorrow -Etiology of nausea/vomiting/poor po intake is still unclear -CT unrevealing for cause -good transition of contrast -GB looked good -Started PPI -per pt PO intake is improving--> will do kcal counts -needs PT/OT-->d/w pt that if she doesn't do this she risks not being able to go home Inpatient E&M: [id number] [facility] Hosp L2
[2020-07-16 12:33] LABS: Anion Gap 5 (5-15); BUN 14 mg/dL (7-18); BUN/Creat Ratio 12.2 RATIO (10-20); Calcium,Total 9.4 mg/dL (8.5-10.1); Chloride 93 mmol/L (98-107); Creatinine, Serum 1.15 mg/dL (0.55-1.02); EST Glomerular Filtration Rate 49 mL/min (>60); Est Glom Filt Rate - Afr Amer 59 mL/min (>60); Estimated Creatinine Clearance 38.35 ml/min; Glucose 122 mg/dL (74-106); Potassium 4.2 mmol/L (3.5-5.1); Sodium Level 126 mmol/L (136-145)
[2020-07-16 14:22] LABS: Uric Acid 4.4 mg/dL (2.6-6.0)
[2020-07-16] MEDS: Tamsulosin HCl 0.4 MG Capsule PO (17:16)
[2020-07-16] MEDS: Atorvastatin Calcium 80 MG Tablet PO (21:00)
[2020-07-16] MEDS: Senna/Docusate Sodium 1 Tablet 2 TABLET PO (21:02)
[2020-07-16] MEDS: MELATONIN 3 MG TABLET PO (21:02)
[2020-07-17] VITALS (10 sets, daily range): BP systolic 113–158; BP diastolic 56–80; PULSE 54–93; RESP 16; TEMP 36.4–36.9; O2SAT 92–99
[2020-07-17] MEDS: 0.9% Normal Saline 1,000 ML 150 ML IV ×2 (04:20→11:38)
[2020-07-17] MEDS: Levothyroxine 125 MCG Tablet PO (06:03)
[2020-07-17] MEDS: Metoprolol(XL)Succ 25 MG Tablet PO (08:23)
[2020-07-17] MEDS: Enoxaparin 40 MG/0.4 ML Syringe SC (08:23)
[2020-07-17] MEDS: Lisinopril 20 MG Tablet PO (08:23)
[2020-07-17] MEDS: Aspirin E.C. 81 MG Tablet PO (08:24)
[2020-07-17] MEDS: Clopidogrel Bisulfate 75 MG Tablet PO (08:24)
[2020-07-17] MEDS: Allopurinol 300 MG Tablet PO (08:24)
[2020-07-17] MEDS: Nystatin Powder 15gm Bottle 1 APPLIC TOPICAL ×2 (08:24→20:16)
[2020-07-17] MEDS: Pantoprazole Sodium 40 MG Tablet PO (08:24)
[2020-07-17] MEDS: Menthol/Lanolin/Calamine/Znox 113 GM Tube 1 APPLIC TOPICAL ×2 (08:25→20:16)
--- NOTE | 2020-07-17 11:55 | PCM.PROGNOTE ---
<Sheila Armendariz - Last Filed: 07/17/20 11:57> Patient Problems: Active and Suspected Problems Hyponatremia (Acute) Subjective: Patient seen and examined. Complains of constipation. Denies nausea, vomiting. Reports she continues to tolerate oral intake. Denies other complaints. - Physical Exam Vitals/I&O's: Vital Signs Temp Pulse Resp BP Pulse Ox 97.5 F L 60 16 131/62 H 97 07/17/20 08:09 07/17/20 08:23 07/17/20 08:09 07/17/20 08:09 07/17/20 08:09 Oxygen Delivery Method Room Air Weight: 217 lb Body Mass Index (BMI) 35.0 Intake and Output for Last 24 Hours 07/15/20 07/16/20 07/17/20 23:59 23:59 23:59 Intake Total 1270.00 / 1270.00 3200.0 / 3200.0 1577.5 / 1577.5 Output Total 3550 / 3550 1925 / 1925 900 / 900 Balance -2280.00 / -2280.00 1275.0 / 1275.0 677.5 / 677.5 General: Alert, Oriented x3, Cooperative HEENT: Atraumatic, PERRLA, EOMI, Normocephalic Neck: Supple, No JVD, Negative Carotid Bruits Lungs: Clear to auscultation, Normal air movement Cardiovascular: Regular rate, No murmurs Abdomen: Bowel Sounds Present, Soft, Non Tender, Non-Distended Extremities: No clubbing, No cyanosis, No edema, Capillary Refill Less than 3 Seconds Skin: No rashes, No breakdown Musculoskeletal: No Tenderness to Palpation of Joints or Extremities Neurological: Cranial nerves II-XII grossly intact, Neuro grossly intact Psych/Mental Status: Flat Affect Laboratory Results 07/16/20 12:00: Sodium 126 L, Potassium 4.2, Chloride 93 L, Carbon Dioxide 28.0, Anion Gap 5, BUN 14, Creatinine 1.15 H, Estim Creat Clear Calc 38.35, Est GFR (MDRD) Af Amer 59 L, Est GFR (MDRD) Non-Af 49 L, BUN/Creatinine Ratio 12.2, Glucose 122 H, Calcium 9.4 07/16/20 12:00: Uric Acid 4.4 Current Medications Acetaminophen (Tylenol) 650 mg PO Q6H PRN PRN PRN Reason: Pain Score 1-10/Temp > 100.7 F Al Hydroxide/Mg Hydroxide (Mylanta Ii) 30 ml PO Q6H PRN PRN PRN Reason: Gastric Burning Albuterol Sulfate (Ventolin Aerosols) 2.5 mg INHALATION Q2H PRN PRN PRN Reason: Shortness of Breath/Wheezing Allopurinol (Zyloprim) 300 mg PO DAILY [facility] Last Admin: 07/17/20 08:24 Dose: 300 mg Documented by: Aspirin (Ecotrin) 81 mg PO DAILY@0800 [facility] Last Admin: 07/17/20 08:24 Dose: 81 mg Documented by: Atorvastatin Calcium (Lipitor) 80 mg PO QHS [facility] Last Admin: 07/16/20 21:00 Dose: 80 mg Documented by: Calamine/Phenol (Calmoseptine Ointment) 1 applic TOPICAL BID [facility]; Protocol Last Admin: 07/17/20 08:25 Dose: 1 applicatio Documented by: Clopidogrel Bisulfate (Plavix) 75 mg PO DAILY [facility] Last Admin: 07/17/20 08:24 Dose: 75 mg Documented by: Enoxaparin Sodium (Lovenox) 40 mg SC DAILY [facility] Last Admin: 07/17/20 08:23 Dose: 40 mg Documented by: Guaifenesin (Robitussin) 20 ml PO Q4H PRN PRN PRN Reason: COUGH Hydralazine HCl (Apresoline Iv) 10 mg IV Q4H PRN PRN PRN Reason: SBP more than 180 mmHg Sodium Chloride () 1,000 mls @ 150 mls/hr IV .Q6H40M [facility] Last Admin: 07/17/20 11:38 Dose: 150 mls/hr Documented by: Levothyroxine Sodium (Synthroid) 125 mcg PO DAILY@0600 [facility] Last Admin: 07/17/20 06:03 Dose: 125 mcg Documented by: Lisinopril (Zestril) 20 mg PO DAILY [facility] Last Admin: 07/17/20 08:23 Dose: 20 mg Documented by: Melatonin (Melatonin) 3 mg PO QHS PRN PRN PRN Reason: INSOMNIA Last Admin: 07/16/20 21:02 Dose: 3 mg Documented by: Metoprolol Succinate (Toprol Xl (Beta Yves)) 25 mg PO DAILY [facility] Last Admin: 07/17/20 08:23 Dose: 25 mg Documented by: Morphine Sulfate () 2 mg IV Q3H PRN PRN PRN Reason: Pain Score 6-10/10 Nitroglycerin (Nitrostat) 0.4 mg SUBLINGUAL Q5M PRN PRN Reason: CARDIAC/CHEST PAIN Nystatin (Mycostatin Powder) 1 applic TOPICAL BID [facility]; Protocol Last Admin: 07/17/20 08:24 Dose: 1 applicatio Documented by: Ondansetron HCl (Zofran) 4 mg IV Q8H PRN PRN PRN Reason: NAUSEA/VOMITING Oxycodone HCl (Oxyir) 5 mg PO Q4H PRN PRN PRN Reason: Pain Score 4-5/10 Pantoprazole Sodium (Protonix) 40 mg PO DAILY [facility] Last Admin: 07/17/20 08:24 Dose: 40 mg Documented by: Polyethylene Glycol (Miralax) 17 gm PO DAILY [facility] Last Admin: 07/16/20 09:09 Dose: 17 gm Documented by: Prochlorperazine Edisylate (Compazine Iv) 5 mg IV Q4H PRN PRN PRN Reason: Breakthrough nausea/vomiting Psyllium Hydrophilic Mucilloid (Metamucil) 1 packet PO DAILY PRN PRN PRN Reason: CONSTIPATION Senna/Docusate Sodium (Senokot-S, Gilma-Colace) 2 tablet PO BID PRN PRN PRN Reason: Constipation Last Admin: 07/16/20 21:02 Dose: 2 tablet Documented by: Sodium Chloride () 10 - 40 ml IV UD PRN PRN Reason: SALINE FLUSH Tamsulosin HCl (Flomax) 0.4 mg PO DAILY@1730 [facility] Last Admin: 07/16/20 17:16 Dose: 0.4 mg Documented by: Medical Necessity - Tobacco Use Smoking Status: Never smoker Tobacco Use: Non-smoker Assessment/Plan All Active Problems Hyponatremia (Acute) 1. Acute hyponatremia-Suspect secondary to dehydration as well as HCTZ vs other etiology. Continue IV fluids. Hold HCTZ. Trend BMP. Urine osmolality and serum osmolality pending to further delineate. Will consult nephrology and await further recommendations. 2. Recent URI symptoms-COVID negative. Denies further URI symptoms. 3. Nausea/vomiting/poor oral intake-unclear etiology. Initiated on PPI with improvement in symptoms. CT of abdomen and pelvis showed distended urinary bladder with mild hydronephrosis on the left. Otherwise unremarkable. Calorie count. If continued improvement, will plan for outpatient follow-up for upper endoscopy/GI referral. 4. CAD with history of stent-continue Plavix, lisinopril, metoprolol. 5. Hypertension-stable, continue lisinopril, metoprolol. HCTZ on hold. 6. Hyperlipidemia-continue statin. 7. Rheumatoid arthritis- not on regimen. 8. Hypothyroidism-continue Synthroid. DVT prophylaxis- Lovenox sc This patient was seen by BRANDON Wilkins under the supervision of Dr. Luz. <Neal Luz F - Last Filed: 07/17/20 16:12> - Physical Exam Vitals/I&O's: Vital Signs Temp Pulse Resp BP Pulse Ox 97.8 F 68 16 134/66 H 92 07/17/20 14:05 07/17/20 14:05 07/17/20 14:05 07/17/20 14:05 07/17/20 14:05 Oxygen Delivery Method Room Air Weight: 216 lb 14.958 oz Body Mass Index (BMI) 35.0 Intake and Output for Last 24 Hours 07/15/20 07/16/20 07/17/20 23:59 23:59 23:59 Intake Total 1270.00 / 1270.00 3200.0 / 3200.0 2057.5 / 2057.5 Output Total 3550 / 3550 1925 / 1925 1700 / 1700 Balance -2280.00 / -2280.00 1275.0 / 1275.0 357.5 / 357.5 Current Medications Acetaminophen (Tylenol) 650 mg PO Q6H PRN PRN PRN Reason: Pain Score 1-10/Temp > 100.7 F Al Hydroxide/Mg Hydroxide (Mylanta Ii) 30 ml PO Q6H PRN PRN PRN Reason: Gastric Burning Albuterol Sulfate (Ventolin Aerosols) 2.5 mg INHALATION Q2H PRN PRN PRN Reason: Shortness of Breath/Wheezing Allopurinol (Zyloprim) 300 mg PO DAILY [facility] Last Admin: 07/17/20 08:24 Dose: 300 mg Documented by: Aspirin (Ecotrin) 81 mg PO DAILY@0800 [facility] Last Admin: 07/17/20 08:24 Dose: 81 mg Documented by: Atorvastatin Calcium (Lipitor) 80 mg PO QHS [facility] Last Admin: 07/16/20 21:00 Dose: 80 mg Documented by: Calamine/Phenol (Calmoseptine Ointment) 1 applic TOPICAL BID [facility]; Protocol Last Admin: 07/17/20 08:25 Dose: 1 applicatio Documented by: Clopidogrel Bisulfate (Plavix) 75 mg PO DAILY [facility] Last Admin: 07/17/20 08:24 Dose: 75 mg Documented by: Enoxaparin Sodium (Lovenox) 40 mg SC DAILY [facility] Last Admin: 07/17/20 08:23 Dose: 40 mg Documented by: Guaifenesin (Robitussin) 20 ml PO Q4H PRN PRN PRN Reason: COUGH Hydralazine HCl (Apresoline Iv) 10 mg IV Q4H PRN PRN PRN Reason: SBP more than 180 mmHg Levothyroxine Sodium (Synthroid) 125 mcg PO DAILY@0600 [facility] Last Admin: 07/17/20 06:03 Dose: 125 mcg Documented by: Lisinopril (Zestril) 20 mg PO DAILY [facility] Last Admin: 07/17/20 08:23 Dose: 20 mg Documented by: Melatonin (Melatonin) 3 mg PO QHS PRN PRN PRN Reason: INSOMNIA Last Admin: 07/16/20 21:02 Dose: 3 mg Documented by: Metoprolol Succinate (Toprol Xl (Beta Yves)) 25 mg PO DAILY [facility] Last Admin: 07/17/20 08:23 Dose: 25 mg Documented by: Morphine Sulfate () 2 mg IV Q3H PRN PRN PRN Reason: Pain Score 6-10/10 Nitroglycerin (Nitrostat) 0.4 mg SUBLINGUAL Q5M PRN PRN Reason: CARDIAC/CHEST PAIN Nystatin (Mycostatin Powder) 1 applic TOPICAL BID [facility]; Protocol Last Admin: 07/17/20 08:24 Dose: 1 applicatio Documented by: Ondansetron HCl (Zofran) 4 mg IV Q8H PRN PRN PRN Reason: NAUSEA/VOMITING Oxycodone HCl (Oxyir) 5 mg PO Q4H PRN PRN PRN Reason: Pain Score 4-5/10 Pantoprazole Sodium (Protonix) 40 mg PO DAILY [facility] Last Admin: 07/17/20 08:24 Dose: 40 mg Documented by: Polyethylene Glycol (Miralax) 17 gm PO DAILY [facility] Last Admin: 07/17/20 15:17 Dose: 17 gm Documented by: Prochlorperazine Edisylate (Compazine Iv) 5 mg IV Q4H PRN PRN PRN Reason: Breakthrough nausea/vomiting Psyllium Hydrophilic Mucilloid (Metamucil) 1 packet PO DAILY PRN PRN PRN Reason: CONSTIPATION Senna/Docusate Sodium (Senokot-S, Gilma-Colace) 2 tablet PO BID PRN PRN PRN Reason: Constipation Last Admin: 07/16/20 21:02 Dose: 2 tablet Documented by: Sodium Chloride () 10 - 40 ml IV UD PRN PRN Reason: SALINE FLUSH Sodium Chloride (Sodium Chloride) 1 gm PO TID [facility] Tamsulosin HCl (Flomax) 0.4 mg PO DAILY@1730 [facility] Last Admin: 07/16/20 17:16 Dose: 0.4 mg Documented by: Addendum: Dr. Luz I personally examined the patient and reviewed the chart. I agree with the above. 35-year-old female presenting from home with nausea, vomiting, and diarrhea. She was found to be hyponatremic with a sodium of 121, and renal insufficiency initially with a creatinine of 1.1. She was started on normal saline and her sodium improved to 126 but has not improved from that, and her creatinine worsened from 0.91 to 1.15 today. Nephrology was consulted and recommend salt tabs and cessation of the IV fluids. She does have a little bit of a confusing picture because she was also on hydrochlorothiazide which was discontinued as well. We will also check a cortisol level in the morning and will continue to monitor her progress. Her nausea and vomiting have abated. Inpatient E&M: [id number] [facility] Hosp L2
--- NOTE | 2020-07-17 15:15 | PCM.CONS.R ---
Problem List (1) Hyponatremia Status: Acute Consultation - Renal 07/17/20 PCP/ Referring MD: Requesting physician: [] Primary care physician: Dr. Rocío Art MD Reason for Consultation:: hyponatremia - History of Present Illness History of Present Illness: The patient is a 75 year old F admitted to hospital with complaints of dizziness, weakness. found to have severe hyponatremia. renal consulted for hyponatremia. admit sodium was 115. PCP Dr Art. sodium was normal last july. better at 126 but still remains low. no complaints today. apparently took quite a bit of laxatives on 07/13/20. no new complaints today - Allergies Allergies: Allergies Penicillins Allergy (Verified 01/01/19 09:30) Swelling meperidine [From Demerol] Adverse Reaction (Verified 01/01/19 09:30) Vomiting SODIUM PENTATHAL Adverse Reaction (Uncoded 01/01/19 09:30) Vomiting - Current Medications Current Medications: Current Medications Acetaminophen (Tylenol) 650 mg PO Q6H PRN PRN PRN Reason: Pain Score 1-10/Temp > 100.7 F Al Hydroxide/Mg Hydroxide (Mylanta Ii) 30 ml PO Q6H PRN PRN PRN Reason: Gastric Burning Albuterol Sulfate (Ventolin Aerosols) 2.5 mg INHALATION Q2H PRN PRN PRN Reason: Shortness of Breath/Wheezing Allopurinol (Zyloprim) 300 mg PO DAILY [facility] Last Admin: 07/17/20 08:24 Dose: 300 mg Documented by: Aspirin (Ecotrin) 81 mg PO DAILY@0800 [facility] Last Admin: 07/17/20 08:24 Dose: 81 mg Documented by: Atorvastatin Calcium (Lipitor) 80 mg PO QHS [facility] Last Admin: 07/16/20 21:00 Dose: 80 mg Documented by: Calamine/Phenol (Calmoseptine Ointment) 1 applic TOPICAL BID [facility]; Protocol Last Admin: 07/17/20 08:25 Dose: 1 applicatio Documented by: Clopidogrel Bisulfate (Plavix) 75 mg PO DAILY [facility] Last Admin: 07/17/20 08:24 Dose: 75 mg Documented by: Enoxaparin Sodium (Lovenox) 40 mg SC DAILY [facility] Last Admin: 07/17/20 08:23 Dose: 40 mg Documented by: Guaifenesin (Robitussin) 20 ml PO Q4H PRN PRN PRN Reason: COUGH Hydralazine HCl (Apresoline Iv) 10 mg IV Q4H PRN PRN PRN Reason: SBP more than 180 mmHg Levothyroxine Sodium (Synthroid) 125 mcg PO DAILY@0600 [facility] Last Admin: 07/17/20 06:03 Dose: 125 mcg Documented by: Lisinopril (Zestril) 20 mg PO DAILY [facility] Last Admin: 07/17/20 08:23 Dose: 20 mg Documented by: Melatonin (Melatonin) 3 mg PO QHS PRN PRN PRN Reason: INSOMNIA Last Admin: 07/16/20 21:02 Dose: 3 mg Documented by: Metoprolol Succinate (Toprol Xl (Beta Yves)) 25 mg PO DAILY [facility] Last Admin: 07/17/20 08:23 Dose: 25 mg Documented by: Morphine Sulfate () 2 mg IV Q3H PRN PRN PRN Reason: Pain Score 6-10/10 Nitroglycerin (Nitrostat) 0.4 mg SUBLINGUAL Q5M PRN PRN Reason: CARDIAC/CHEST PAIN Nystatin (Mycostatin Powder) 1 applic TOPICAL BID [facility]; Protocol Last Admin: 07/17/20 08:24 Dose: 1 applicatio Documented by: Ondansetron HCl (Zofran) 4 mg IV Q8H PRN PRN PRN Reason: NAUSEA/VOMITING Oxycodone HCl (Oxyir) 5 mg PO Q4H PRN PRN PRN Reason: Pain Score 4-5/10 Pantoprazole Sodium (Protonix) 40 mg PO DAILY [facility] Last Admin: 07/17/20 08:24 Dose: 40 mg Documented by: Polyethylene Glycol (Miralax) 17 gm PO DAILY [facility] Last Admin: 07/16/20 09:09 Dose: 17 gm Documented by: Prochlorperazine Edisylate (Compazine Iv) 5 mg IV Q4H PRN PRN PRN Reason: Breakthrough nausea/vomiting Psyllium Hydrophilic Mucilloid (Metamucil) 1 packet PO DAILY PRN PRN PRN Reason: CONSTIPATION Senna/Docusate Sodium (Senokot-S, Gilma-Colace) 2 tablet PO BID PRN PRN PRN Reason: Constipation Last Admin: 07/16/20 21:02 Dose: 2 tablet Documented by: Sodium Chloride () 10 - 40 ml IV UD PRN PRN Reason: SALINE FLUSH Tamsulosin HCl (Flomax) 0.4 mg PO DAILY@1730 [facility] Last Admin: 07/16/20 17:16 Dose: 0.4 mg Documented by: - Past Medical History Past Medical History (Chronic Problems): Chronic Problems Essential hypertension (Chronic) Dyslipidemia (Chronic) Hypothyroidism (Chronic) Constipation (Chronic) RA (rheumatoid arthritis) (Chronic) Coronary artery disease (Chronic) - Social History Smoking Status: Never smoker - Family History Paternal History Items: Cancer - Father of colon cancer Review of Systems Constitutional: Denies: Chills, Fever, Weight Change HEENT: Denies: Head Aches, Sinus Congestion, Sinus Drainage Cardiovascular: Denies: Chest Pain, Palpitations Respiratory: Denies: Cough, Shortness of breath at rest, Sputum production Gastrointestinal: Denies: Abdominal Pain, Nausea, Vomiting Genitourinary: Denies: Dysuria Musculoskeletal: Denies: Joint Pain, Joint Tenderness Skin: Denies: Rash, Wounds Neurological: Denies: Numbness, Tingling, Focal weakness Psychiatric: Denies: Anxiety, Depression, Homicidal Ideations, Suicidal Ideations Hematologic/ Lymphatic: Denies: Easy Bruising, Easy Bleeding Patient Problems: Active and Suspected Problems Hyponatremia (Acute) - Physical Exam Vitals/I&O's: Vital Signs Temp Pulse Resp BP Pulse Ox 97.8 F 68 16 134/66 H 92 07/17/20 14:05 07/17/20 14:05 07/17/20 14:05 07/17/20 14:05 07/17/20 14:05 Oxygen Delivery Method Room Air Weight: 98.43 kg Body Mass Index (BMI) 35.0 Intake and Output for Last 24 Hours 07/15/20 07/16/20 07/17/20 23:59 23:59 23:59 Intake Total 1270.00 / 1270.00 3200.0 / 3200.0 2057.5 / 7.5 Output Total 3550 / 3550 1925 / 1925 1700 / 1700 Balance -2280.00 / -2280.00 1275.0 / 1275.0 357.5 / 357.5 General: Alert, Oriented x3, Cooperative HEENT: Atraumatic, PERRLA, EOMI, Normocephalic Neck: Supple, No JVD, Negative Carotid Bruits Lungs: Clear to auscultation, Normal air movement Cardiovascular: Regular rate, No murmurs Abdomen: Bowel Sounds Present, Soft, Non Tender Extremities: No edema, Capillary Refill Less than 3 Seconds Skin: No rashes, No breakdown Musculoskeletal: No Tenderness to Palpation of Joints or Extremities Neurological: Cranial nerves II-XII grossly intact Psych/Mental Status: Normal Affect, Appropriate Current Medications Acetaminophen (Tylenol) 650 mg PO Q6H PRN PRN PRN Reason: Pain Score 1-10/Temp > 100.7 F Al Hydroxide/Mg Hydroxide (Mylanta Ii) 30 ml PO Q6H PRN PRN PRN Reason: Gastric Burning Albuterol Sulfate (Ventolin Aerosols) 2.5 mg INHALATION Q2H PRN PRN PRN Reason: Shortness of Breath/Wheezing Allopurinol (Zyloprim) 300 mg PO DAILY [facility] Last Admin: 07/17/20 08:24 Dose: 300 mg Documented by: Aspirin (Ecotrin) 81 mg PO DAILY@0800 [facility] Last Admin: 07/17/20 08:24 Dose: 81 mg Documented by: Atorvastatin Calcium (Lipitor) 80 mg PO QHS [facility] Last Admin: 07/16/20 21:00 Dose: 80 mg Documented by: Calamine/Phenol (Calmoseptine Ointment) 1 applic TOPICAL BID [facility]; Protocol Last Admin: 07/17/20 08:25 Dose: 1 applicatio Documented by: Clopidogrel Bisulfate (Plavix) 75 mg PO DAILY [facility] Last Admin: 07/17/20 08:24 Dose: 75 mg Documented by: Enoxaparin Sodium (Lovenox) 40 mg SC DAILY [facility] Last Admin: 07/17/20 08:23 Dose: 40 mg Documented by: Guaifenesin (Robitussin) 20 ml PO Q4H PRN PRN PRN Reason: COUGH Hydralazine HCl (Apresoline Iv) 10 mg IV Q4H PRN PRN PRN Reason: SBP more than 180 mmHg Levothyroxine Sodium (Synthroid) 125 mcg PO DAILY@0600 [facility] Last Admin: 07/17/20 06:03 Dose: 125 mcg Documented by: Lisinopril (Zestril) 20 mg PO DAILY [facility] Last Admin: 07/17/20 08:23 Dose: 20 mg Documented by: Melatonin (Melatonin) 3 mg PO QHS PRN PRN PRN Reason: INSOMNIA Last Admin: 07/16/20 21:02 Dose: 3 mg Documented by: Metoprolol Succinate (Toprol Xl (Beta Yves)) 25 mg PO DAILY [facility] Last Admin: 07/17/20 08:23 Dose: 25 mg Documented by: Morphine Sulfate () 2 mg IV Q3H PRN PRN PRN Reason: Pain Score 6-10/10 Nitroglycerin (Nitrostat) 0.4 mg SUBLINGUAL Q5M PRN PRN Reason: CARDIAC/CHEST PAIN Nystatin (Mycostatin Powder) 1 applic TOPICAL BID [facility]; Protocol Last Admin: 07/17/20 08:24 Dose: 1 applicatio Documented by: Ondansetron HCl (Zofran) 4 mg IV Q8H PRN PRN PRN Reason: NAUSEA/VOMITING Oxycodone HCl (Oxyir) 5 mg PO Q4H PRN PRN PRN Reason: Pain Score 4-5/10 Pantoprazole Sodium (Protonix) 40 mg PO DAILY [facility] Last Admin: 07/17/20 08:24 Dose: 40 mg Documented by: Polyethylene Glycol (Miralax) 17 gm PO DAILY [facility] Last Admin: 07/16/20 09:09 Dose: 17 gm Documented by: Prochlorperazine Edisylate (Compazine Iv) 5 mg IV Q4H PRN PRN PRN Reason: Breakthrough nausea/vomiting Psyllium Hydrophilic Mucilloid (Metamucil) 1 packet PO DAILY PRN PRN PRN Reason: CONSTIPATION Senna/Docusate Sodium (Senokot-S, Gilma-Colace) 2 tablet PO BID PRN PRN PRN Reason: Constipation Last Admin: 07/16/20 21:02 Dose: 2 tablet Documented by: Sodium Chloride () 10 - 40 ml IV UD PRN PRN Reason: SALINE FLUSH Tamsulosin HCl (Flomax) 0.4 mg PO DAILY@1730 [facility] Last Admin: 07/16/20 17:16 Dose: 0.4 mg Documented by: Assessment/Plan All Active Problems Hyponatremia (Acute) Hyponatremia. serum sodium is around 126. was 115 on admit. reviewed epic from Dr Donis office. sodium was normal in july 2019. was on HCTZ but she has been on it for a while TSH is ok as per history she has diarrhea from laxatives but got fluids dc fluids add salt tablets called lab, osm machine is broke. send out results back tomorrow at earliest check cortisol
[2020-07-17] MEDS: Polyethylene Glycol 3350 17 GM PACKET PO (15:17)
[2020-07-17] MEDS: Tamsulosin HCl 0.4 MG Capsule PO (17:30)
[2020-07-17] MEDS: SODIUM CHLORIDE 1 GM TABLET PO (20:17)
[2020-07-17] MEDS: Atorvastatin Calcium 80 MG Tablet PO (20:17)
--- NOTE | 2020-07-17 23:31 | NURSING ---
Handoff given to Roopa Rain RN at this time. Cornelio RN
--- NOTE | 2020-07-17 23:36 | NURSING ---
pt c/o seeing hot dogs on the wall. Unable to orient pt at this time
--- NOTE | 2020-07-18 01:40 | NURSING ---
Pt very confused. Pt called her to come to hospital. at her side
[2020-07-18 02:09] VITALS: BP 164/80; PULSE 104; RESP 18; TEMP 36.4; O2SAT 100
[2020-07-18 03:06] VITALS: PULSE 106
[2020-07-18] MEDS: SODIUM CHLORIDE 1 GM TABLET PO (05:16)
[2020-07-18] MEDS: Levothyroxine 125 MCG Tablet PO (05:16)
[2020-07-18 06:21] LABS: Anion Gap 9 (5-15); BUN 12 mg/dL (7-18); BUN/Creat Ratio 9.9 RATIO (10-20); Calcium,Total 8.7 mg/dL (8.5-10.1); Chloride 103 mmol/L (98-107); Creatinine, Serum 1.21 mg/dL (0.55-1.02); EST Glomerular Filtration Rate 46 mL/min (>60); Est Glom Filt Rate - Afr Amer 56 mL/min (>60); Estimated Creatinine Clearance 36.45 ml/min; Glucose 151 mg/dL (74-106); Potassium 4.2 mmol/L (3.5-5.1); Sodium Level 136 mmol/L (136-145)
[2020-07-18 06:59] VITALS: PULSE 77
[2020-07-18 09:30] VITALS: BP 143/69; PULSE 81; RESP 18; TEMP 36.8; O2SAT 100
[2020-07-18 09:38] VITALS: PULSE 81
[2020-07-18] MEDS: Enoxaparin 40 MG/0.4 ML Syringe SC (09:38)
[2020-07-18] MEDS: Clopidogrel Bisulfate 75 MG Tablet PO (09:38)
[2020-07-18] MEDS: Pantoprazole Sodium 40 MG Tablet PO (09:38)
[2020-07-18] MEDS: Metoprolol(XL)Succ 25 MG Tablet PO (09:38)
[2020-07-18] MEDS: Allopurinol 300 MG Tablet PO (09:38)
[2020-07-18] MEDS: Lisinopril 20 MG Tablet PO (09:38)
[2020-07-18] MEDS: Aspirin E.C. 81 MG Tablet PO (09:38)
[2020-07-18] MEDS: Nystatin Powder 15gm Bottle 1 APPLIC TOPICAL (09:39)
[2020-07-18] MEDS: Menthol/Lanolin/Calamine/Znox 113 GM Tube 1 APPLIC TOPICAL (09:39)
[2020-07-18] MEDS: Polyethylene Glycol 3350 17 GM PACKET PO (10:49)
--- NOTE | 2020-07-18 10:59 | DCINST_ITS ---
- Discharge Diagnoses Current Active Problems: Current Active and Chronic Problems Hyponatremia (Acute) Constipation (Chronic) You will use the following diet at home:: No restrictions, Other - increase sodium intake. Discharge Activity: Return to Normal Activity Call your doctor if you observe: Shortness of breath, Dizziness, Fainting spells, Chest pain Allergies/Adverse Reactions: Allergies Penicillins Allergy (Verified 01/01/19 09:30) Swelling meperidine [From Demerol] Adverse Reaction (Verified 01/01/19 09:30) Vomiting SODIUM PENTATHAL Adverse Reaction (Uncoded 01/01/19 09:30) Vomiting Medications to take at Discharge Allopurinol [Zyloprim] 300 mg PO DAILY 08/12/16 Aspirin E.C. [Ecotrin] 81 mg PO DAILY@0800 08/12/16 Atorvastatin Calcium [Lipitor] 80 mg PO QHS 08/12/16 Clopidogrel Bisulfate [Plavix] 75 mg PO DAILY 08/12/16 Levothyroxine [Synthroid] 125 mcg PO DAILY 08/12/16 Lisinopril [Zestril] 40 mg PO DAILY 08/12/16 Multivit-Min/Iron/Folic/Lutein [Centrum Silver Women Tablet] 1 each PO DAILY 08/12/16 Nitroglycerin (INPATIENT USE) [Nitrostat] 0.4 mg SUBLINGUAL Q5M PRN 08/12/16 Metoprolol Succinate [Toprol Xl] 25 mg PO DAILY 01/01/19 Wewoka-3/Dha/Epa/Fish Oil [[place] 3 500 Softgel] 1,000 mg PO DAILY 01/01/19 Ubidecarenone [Co Q-10] 75 mg PO DAILY 01/01/19 Calcium Citrate/Vitamin D3 [Citracal + D Maximum Caplet] 1 ea PO DAILY 07/14/20 Metformin HCl 500 mg PO DAILY 07/14/20 Pantoprazole Sodium [Protonix] 40 mg PO DAILY #30 tab 07/18/20 Tamsulosin HCl [Flomax] 0.4 mg PO DAILY@1730 #30 cap 07/18/20 The following prescriptions were given: Tamsulosin HCl [Flomax] 0.4 mg PO DAILY@1730 #30 cap Transmission Status: Pending to [id number] Pantoprazole Sodium [Protonix] 40 mg PO DAILY #30 tab Transmission Status: Pending to [id number] Primary Care Physician: Rocío Art MD [Primary Care Provider] - Please follow up with your Primary Care Physician in: 1 Week Test Results: Test results from this visit will be discussed in further detail at your follow- up appointment, if applicable. Please Follow Up With: Moises Carrion MD When: 1 Week- will need repeat BMP Proposed Discharge Date: 07/18/20
--- NOTE | 2020-07-18 11:06 | PCM.DC.SUM ---
<Sheila Armendariz - Last Filed: 07/18/20 11:14> Discharge Date and Diagnosis Date of Admission: 07/13/20 Date of Discharge: 07/18/20 - Primary Discharge Diagnosis Acute Problems: Active Problems 1. Acute hyponatremia-secondary to dehydration/poor oral intake as well as HCTZ 2. Recent URI symptoms-COVID negative. 3. Nausea/vomiting/poor oral intake-unclear etiology. Initiated on PPI with improvement in symptoms. 4. CAD with history of stent 5. Hypertension 6. Hyperlipidemia 7. Rheumatoid arthritis 8. Hypothyroidism - Secondary Discharge Diagnosis Chronic Problems: Chronic Problems Essential hypertension (Chronic) Dyslipidemia (Chronic) Hypothyroidism (Chronic) Constipation (Chronic) RA (rheumatoid arthritis) (Chronic) Coronary artery disease (Chronic) Hospital Course and Treatment Imaging Results: Diagnostic Data Abdomen/Pelvis CT 07/14/20 15:31 IMPRESSION: Large volume distended urinary bladder with mild hydronephrosis of the left kidney. Nonhydronephrotic right kidney. Negative for renal, ureteral or bladder stones. Negative for mass density. Negative for pelvic mass or free fluid in the pelvis. No acute bowel related findings. Nondistended stomach, small bowel and colon with good progression of oral contrast through the small bowel. Minimal diverticulosis without evidence of acute diverticulitis. A normal appendix is identified. Unremarkable liver, spleen and pancreas with a nondistended gallbladder. 6.5 x 3.5 x 6.5 cm fatty umbilical hernia with no retained fluid, incorporated bowel or stranding. Moderate dependent bibasilar atelectatic versus chronic changes. Electronically Signed: Viola Degroot MD at 19:04 EDT , Service support , Dr. Carrion- Nephrology Operations: None Procedures: None Summary of Care Provided: The patient is a 75 year old F admitted 07/13/2020 due to hyponatremia. 1. Acute hyponatremia-Secondary to dehydration/poor oral intake as well as HCTZ. HCTZ discontinued. Urine osmolality and serum osmolality pending-send out lab due to machine broken. Nephrology consulted who added salt tabs. Sodium increased to 136. Follow-up with nephrology in 1 week. Repeat BMP in 1 week. Encouraged increased salt intake/oral intake. Follow-up with PCP in 1 week. 2. Recent URI symptoms-COVID negative. Denies further URI symptoms. 3. Nausea/vomiting/poor oral intake-unclear etiology. Initiated on PPI with improvement in symptoms. CT of abdomen and pelvis showed distended urinary bladder with mild hydronephrosis on the left. Otherwise unremarkable. Recommend outpatient follow-up for upper endoscopy/GI referral. Referral by PCP. 4. CAD with history of stent-continue Plavix, lisinopril, metoprolol. 5. Hypertension-stable, continue lisinopril, metoprolol. HCTZ discontinued. 6. Hyperlipidemia-continue statin. 7. Rheumatoid arthritis- not on regimen. 8. Hypothyroidism-continue Synthroid. General: Alert, Oriented x3, Cooperative HEENT: Atraumatic, PERRLA, EOMI, Normocephalic Neck: Supple, No JVD, Negative Carotid Bruits Lungs: Clear to auscultation, Normal air movement Cardiovascular: Regular rate, No murmurs Abdomen: Bowel Sounds Present, Soft, Non Tender, Non-Distended Extremities: No clubbing, No cyanosis, No edema, Capillary Refill Less than 3 Seconds Skin: No rashes, No breakdown Musculoskeletal: No Tenderness to Palpation of Joints or Extremities Neurological: Cranial nerves II-XII grossly intact, Neuro grossly intact Psych/Mental Status: Flat Affect Patient seen and examined prior to discharge. Physical assessment as noted above. Patient is stable for discharge with follow up recommendations as noted above. This patient was seen by BRANDON Wilkins under the supervision of Dr. Luz. - Physical Exam Vitals/I&O's: Vital Signs Temp Pulse Resp BP Pulse Ox 98.3 F 81 18 143/69 H 100 07/18/20 09:30 07/18/20 09:38 07/18/20 09:30 07/18/20 09:30 07/18/20 09:30 Oxygen Delivery Method Room Air Weight: 216 lb 14.958 oz Body Mass Index (BMI) 35.0 Intake and Output for Last 24 Hours 07/16/20 07/17/20 07/18/20 23:59 23:59 23:59 Intake Total 3200.0 / 3200.0 2952.5 / 2952.5 340 / 340 Output Total 1925 / 1925 3400 / 3400 1300 / 1300 Balance 1275.0 / 1275.0 -447.5 / -447.5 -960 / -960 Laboratory Results 07/18/20 05:02: Sodium 136, Potassium 4.2, Chloride 103, Carbon Dioxide 24.0, Anion Gap 9, BUN 12, Creatinine 1.21 H, Estim Creat Clear Calc 36.45, Est GFR (MDRD) Af Amer 56 L, Est GFR (MDRD) Non-Af 46 L, BUN/Creatinine Ratio 9.9 L, Glucose 151 H, Calcium 8.7 07/18/20 05:02: Cortisol 17.80 Current Medications Acetaminophen (Tylenol) 650 mg PO Q6H PRN PRN PRN Reason: Pain Score 1-10/Temp > 100.7 F Al Hydroxide/Mg Hydroxide (Mylanta Ii) 30 ml PO Q6H PRN PRN PRN Reason: Gastric Burning Albuterol Sulfate (Ventolin Aerosols) 2.5 mg INHALATION Q2H PRN PRN PRN Reason: Shortness of Breath/Wheezing Allopurinol (Zyloprim) 300 mg PO DAILY [facility] Last Admin: 07/18/20 09:38 Dose: 300 mg Documented by: Aspirin (Ecotrin) 81 mg PO DAILY@0800 [facility] Last Admin: 07/18/20 09:38 Dose: 81 mg Documented by: Atorvastatin Calcium (Lipitor) 80 mg PO QHS [facility] Last Admin: 07/17/20 20:17 Dose: 80 mg Documented by: Calamine/Phenol (Calmoseptine Ointment) 1 applic TOPICAL BID [facility]; Protocol Last Admin: 07/18/20 09:39 Dose: 1 applicatio Documented by: Clopidogrel Bisulfate (Plavix) 75 mg PO DAILY [facility] Last Admin: 07/18/20 09:38 Dose: 75 mg Documented by: Enoxaparin Sodium (Lovenox) 40 mg SC DAILY [facility] Last Admin: 07/18/20 09:38 Dose: 40 mg Documented by: Guaifenesin (Robitussin) 20 ml PO Q4H PRN PRN PRN Reason: COUGH Hydralazine HCl (Apresoline Iv) 10 mg IV Q4H PRN PRN PRN Reason: SBP more than 180 mmHg Levothyroxine Sodium (Synthroid) 125 mcg PO DAILY@0600 [facility] Last Admin: 07/18/20 05:16 Dose: 125 mcg Documented by: Lisinopril (Zestril) 20 mg PO DAILY [facility] Last Admin: 07/18/20 09:38 Dose: 20 mg Documented by: Melatonin (Melatonin) 3 mg PO QHS PRN PRN PRN Reason: INSOMNIA Last Admin: 07/16/20 21:02 Dose: 3 mg Documented by: Metoprolol Succinate (Toprol Xl (Beta Yves)) 25 mg PO DAILY [facility] Last Admin: 07/18/20 09:38 Dose: 25 mg Documented by: Morphine Sulfate () 2 mg IV Q3H PRN PRN PRN Reason: Pain Score 6-10/10 Nitroglycerin (Nitrostat) 0.4 mg SUBLINGUAL Q5M PRN PRN Reason: CARDIAC/CHEST PAIN Nystatin (Mycostatin Powder) 1 applic TOPICAL BID [facility]; Protocol Last Admin: 07/18/20 09:39 Dose: 1 applicatio Documented by: Ondansetron HCl (Zofran) 4 mg IV Q8H PRN PRN PRN Reason: NAUSEA/VOMITING Oxycodone HCl (Oxyir) 5 mg PO Q4H PRN PRN PRN Reason: Pain Score 4-5/10 Pantoprazole Sodium (Protonix) 40 mg PO DAILY [facility] Last Admin: 07/18/20 09:38 Dose: 40 mg Documented by: Polyethylene Glycol (Miralax) 17 gm PO DAILY [facility] Last Admin: 07/18/20 10:49 Dose: 17 gm Documented by: Prochlorperazine Edisylate (Compazine Iv) 5 mg IV Q4H PRN PRN PRN Reason: Breakthrough nausea/vomiting Psyllium Hydrophilic Mucilloid (Metamucil) 1 packet PO DAILY PRN PRN PRN Reason: CONSTIPATION Senna/Docusate Sodium (Senokot-S, Gilma-Colace) 2 tablet PO BID PRN PRN PRN Reason: Constipation Last Admin: 07/16/20 21:02 Dose: 2 tablet Documented by: Sodium Chloride () 10 - 40 ml IV UD PRN PRN Reason: SALINE FLUSH Sodium Chloride (Sodium Chloride) 1 gm PO TID [facility] Last Admin: 07/18/20 05:16 Dose: 1 gm Documented by: Tamsulosin HCl (Flomax) 0.4 mg PO DAILY@1730 [facility] Last Admin: 07/17/20 17:30 Dose: 0.4 mg Documented by: Discharge Diet: No Restrictions Discharge Activity: Return to Normal Activity Call your doctor if you observe: Shortness of breath, Dizziness, Fainting spells, Chest pain Home Medications: Medications to take at Discharge Allopurinol [Zyloprim] 300 mg PO DAILY 08/12/16 Aspirin E.C. [Ecotrin] 81 mg PO DAILY@0800 08/12/16 Atorvastatin Calcium [Lipitor] 80 mg PO QHS 08/12/16 Clopidogrel Bisulfate [Plavix] 75 mg PO DAILY 08/12/16 Levothyroxine [Synthroid] 125 mcg PO DAILY 08/12/16 Lisinopril [Zestril] 40 mg PO DAILY 08/12/16 Multivit-Min/Iron/Folic/Lutein [Centrum Silver Women Tablet] 1 each PO DAILY 08/12/16 Nitroglycerin (INPATIENT USE) [Nitrostat] 0.4 mg SUBLINGUAL Q5M PRN 08/12/16 Metoprolol Succinate [Toprol Xl] 25 mg PO DAILY 01/01/19 [place]erson-3/Dha/Epa/Fish Oil [[place] 3 500 Softgel] 1,000 mg PO DAILY 01/01/19 Ubidecarenone [Co Q-10] 75 mg PO DAILY 01/01/19 Calcium Citrate/Vitamin D3 [Citracal + D Maximum Caplet] 1 ea PO DAILY 07/14/20 Metformin HCl 500 mg PO DAILY 07/14/20 Pantoprazole Sodium [Protonix] 40 mg PO DAILY #30 tab 07/18/20 Tamsulosin HCl [Flomax] 0.4 mg PO DAILY@1730 #30 cap 07/18/20 Following Prescriptions Were Given to Patient: Tamsulosin HCl [Flomax] 0.4 mg PO DAILY@1730 #30 cap Transmission Status: Received by [id number] Pantoprazole Sodium [Protonix] 40 mg PO DAILY #30 tab Transmission Status: Received by [id number] Primary Care Physician: Rocío Art MD [Primary Care Provider] - Please follow up with your Primary Care Physician in: 1 Week Please Follow Up With: Moises Carrion MD When: 1 Week- will need repeat BMP Disposition: Home Minutes spent on discharge:: 35 Patient Condition:: Stable Medical Necessity - Tobacco Use Smoking Status: Never smoker Tobacco Use: Non-smoker Meaningful Use Info Meaningful Use Diagnoses (Choose all that apply): None applicable <Neal Luz F - Last Filed: 07/18/20 11:21> Discharge Date and Diagnosis - Secondary Discharge Diagnosis Chronic Problems: Chronic Problems Essential hypertension (Chronic) Dyslipidemia (Chronic) Hypothyroidism (Chronic) Constipation (Chronic) RA (rheumatoid arthritis) (Chronic) Coronary artery disease (Chronic) Hospital Course and Treatment Summary of Care Provided: The patient is a 75 year old F [] - Physical Exam Vitals/I&O's: Vital Signs Temp Pulse Resp BP Pulse Ox 98.3 F 81 18 143/69 H 100 07/18/20 09:30 07/18/20 09:38 07/18/20 09:30 07/18/20 09:30 07/18/20 09:30 Oxygen Delivery Method Room Air Weight: 216 lb 14.958 oz Body Mass Index (BMI) 35.0 Intake and Output for Last 24 Hours 07/16/20 07/17/20 07/18/20 23:59 23:59 23:59 Intake Total 3200.0 / 3200.0 2952.5 / 2952.5 340 / 340 Output Total 1925 / 1925 3400 / 3400 1300 / 1300 Balance 1275.0 / 1275.0 -447.5 / -447.5 -960 / -960 Laboratory Results 07/18/20 05:02: Sodium 136, Potassium 4.2, Chloride 103, Carbon Dioxide 24.0, Anion Gap 9, BUN 12, Creatinine 1.21 H, Estim Creat Clear Calc 36.45, Est GFR (MDRD) Af Amer 56 L, Est GFR (MDRD) Non-Af 46 L, BUN/Creatinine Ratio 9.9 L, Glucose 151 H, Calcium 8.7 07/18/20 05:02: Cortisol 17.80 Current Medications Acetaminophen (Tylenol) 650 mg PO Q6H PRN PRN PRN Reason: Pain Score 1-10/Temp > 100.7 F Al Hydroxide/Mg Hydroxide (Mylanta Ii) 30 ml PO Q6H PRN PRN PRN Reason: Gastric Burning Albuterol Sulfate (Ventolin Aerosols) 2.5 mg INHALATION Q2H PRN PRN PRN Reason: Shortness of Breath/Wheezing Allopurinol (Zyloprim) 300 mg PO DAILY [facility] Last Admin: 07/18/20 09:38 Dose: 300 mg Documented by: Aspirin (Ecotrin) 81 mg PO DAILY@0800 [facility] Last Admin: 07/18/20 09:38 Dose: 81 mg Documented by: Atorvastatin Calcium (Lipitor) 80 mg PO QHS [facility] Last Admin: 07/17/20 20:17 Dose: 80 mg Documented by: Calamine/Phenol (Calmoseptine Ointment) 1 applic TOPICAL BID [facility]; Protocol Last Admin: 07/18/20 09:39 Dose: 1 applicatio Documented by: Clopidogrel Bisulfate (Plavix) 75 mg PO DAILY [facility] Last Admin: 07/18/20 09:38 Dose: 75 mg Documented by: Enoxaparin Sodium (Lovenox) 40 mg SC DAILY [facility] Last Admin: 07/18/20 09:38 Dose: 40 mg Documented by: Guaifenesin (Robitussin) 20 ml PO Q4H PRN PRN PRN Reason: COUGH Hydralazine HCl (Apresoline Iv) 10 mg IV Q4H PRN PRN PRN Reason: SBP more than 180 mmHg Levothyroxine Sodium (Synthroid) 125 mcg PO DAILY@0600 [facility] Last Admin: 07/18/20 05:16 Dose: 125 mcg Documented by: Lisinopril (Zestril) 20 mg PO DAILY [facility] Last Admin: 07/18/20 09:38 Dose: 20 mg Documented by: Melatonin (Melatonin) 3 mg PO QHS PRN PRN PRN Reason: INSOMNIA Last Admin: 07/16/20 21:02 Dose: 3 mg Documented by: Metoprolol Succinate (Toprol Xl (Beta Yves)) 25 mg PO DAILY [facility] Last Admin: 07/18/20 09:38 Dose: 25 mg Documented by: Morphine Sulfate () 2 mg IV Q3H PRN PRN PRN Reason: Pain Score 6-10/10 Nitroglycerin (Nitrostat) 0.4 mg SUBLINGUAL Q5M PRN PRN Reason: CARDIAC/CHEST PAIN Nystatin (Mycostatin Powder) 1 applic TOPICAL BID [facility]; Protocol Last Admin: 07/18/20 09:39 Dose: 1 applicatio Documented by: Ondansetron HCl (Zofran) 4 mg IV Q8H PRN PRN PRN Reason: NAUSEA/VOMITING Oxycodone HCl (Oxyir) 5 mg PO Q4H PRN PRN PRN Reason: Pain Score 4-5/10 Pantoprazole Sodium (Protonix) 40 mg PO DAILY [facility] Last Admin: 07/18/20 09:38 Dose: 40 mg Documented by: Polyethylene Glycol (Miralax) 17 gm PO DAILY [facility] Last Admin: 07/18/20 10:49 Dose: 17 gm Documented by: Prochlorperazine Edisylate (Compazine Iv) 5 mg IV Q4H PRN PRN PRN Reason: Breakthrough nausea/vomiting Psyllium Hydrophilic Mucilloid (Metamucil) 1 packet PO DAILY PRN PRN PRN Reason: CONSTIPATION Senna/Docusate Sodium (Senokot-S, Gilma-Colace) 2 tablet PO BID PRN PRN PRN Reason: Constipation Last Admin: 07/16/20 21:02 Dose: 2 tablet Documented by: Sodium Chloride () 10 - 40 ml IV UD PRN PRN Reason: SALINE FLUSH Sodium Chloride (Sodium Chloride) 1 gm PO TID [facility] Last Admin: 07/18/20 05:16 Dose: 1 gm Documented by: Tamsulosin HCl (Flomax) 0.4 mg PO DAILY@1730 [facility] Last Admin: 07/17/20 17:30 Dose: 0.4 mg Documented by: Addendum: Dr. Luz I personally examined the patient and reviewed the chart. I agree with the above. 75-year-old female presenting from home with nausea, vomiting, and diarrhea. She was found to be hyponatremic with a sodium of 121, and renal insufficiency initially with a creatinine of 1.1. She was started on normal saline and her sodium improved to 126 but has not improved from that, and her creatinine worsened from 0.91 to 1.15 today. Nephrology was consulted and recommend salt tabs and cessation of the IV fluids. She does have a little bit of a confusing picture because she was also on hydrochlorothiazide which was discontinued as well. We will also check a cortisol level in the morning and will continue to monitor her progress. Her nausea and vomiting have abated. 07/18/2020: She is doing much better today, feels better. Denies any nausea or vomiting. She had her IV fluids stopped yesterday and she was started on salt tabs. Her sodium today went up to 136. 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 I do believe that once she goes home if she continues to eat a regular diet her sodium level not be an issue. I do recommend that she follow-up with her primary care doctor in 3 to 5 days and the discharge plan was discussed with her and she expressed understanding of the risks and benefits of going home and would like to go home today. She will need to have an outpatient BMP obtained by her PCP in a few days to evaluate her kidney function as well as her sodium. On discharge her creatinine is 1.21 but her sodium is normal at 136. Her hydrochlorothiazide was discontinued on discharge but she will be continued on her lisinopril at 40 mg daily. Inpatient E&M: [id number] Disch Hosp
--- NOTE | 2020-07-18 12:10 | CASEMGMT ---
Addendum entered by Ml Dave 07/18/20 12:40: Per PCU tech, pt now wants HHC set up and would like to speak with this RN CM again. This RN CM back to room and pt now states she would like C set up and would like [facility] at this time for therapy only. Call to Rosalva at [facility] and she states they are able to take pt for PT/OT at this time and order placed in [facility] at this time. Pt/ aware that WW to be delivered prior to discharge, pt voices understanding. Pt/ voice no further questions/concerns/needs at this time. Shashi IVAN CM Original Note: This RN CM to room to discuss discharge plan with pt at this time. Therapy is recommending further therapy for pt at this time and initially pt had declined [facility] recommendation during assessment. This RN CM broached C again with pt and she insists on setting it up herself through her insurance. This RN CM advised her that we can take care of it here prior to discharge and pt declines at this time. Pt is agreeable to script for WW to be sent to [facility] at this time so that it can be delivered to her prior to discharge. Script faxed to [facility] and call to [facility] to notify of order, voices understanding. Pt voices no further questions/concerns/needs at this time. Shashi IVAN CM
--- NOTE | 2020-07-18 13:10 | NURSING ---
Pt voided without difficulty prior to discharge.
--- NOTE | 2020-07-18 13:45 | PCM.PN.REN ---
Subjective: no new complaints - Physical Exam Vitals/I&O's: Vital Signs Temp Pulse Resp BP Pulse Ox 98.3 F 81 18 143/69 H 100 07/18/20 09:30 07/18/20 09:38 07/18/20 09:30 07/18/20 09:30 07/18/20 09:30 Oxygen Delivery Method Room Air Weight: 98.4 kg Body Mass Index (BMI) 35.0 Intake and Output for Last 24 Hours 07/16/20 07/17/20 07/18/20 23:59 23:59 23:59 Intake Total 3200.0 / 3200.0 2952.5 / 2952.5 340 / 340 Output Total 1925 / 1925 3400 / 3400 1300 / 1300 Balance 1275.0 / 1275.0 -447.5 / -447.5 -960 / -960 General: Alert, Oriented x3, Cooperative HEENT: Atraumatic, PERRLA, EOMI, Normocephalic Neck: Supple, No JVD, Negative Carotid Bruits Lungs: Clear to auscultation, Normal air movement Cardiovascular: Regular rate, No murmurs Abdomen: Bowel Sounds Present, Soft, Non Tender Extremities: No edema, Capillary Refill Less than 3 Seconds Skin: No rashes, No breakdown Musculoskeletal: No Tenderness to Palpation of Joints or Extremities Neurological: Cranial nerves II-XII grossly intact Psych/Mental Status: Normal Affect, Appropriate Laboratory Results 07/18/20 05:02: Sodium 136, Potassium 4.2, Chloride 103, Carbon Dioxide 24.0, Anion Gap 9, BUN 12, Creatinine 1.21 H, Estim Creat Clear Calc 36.45, Est GFR (MDRD) Af Amer 56 L, Est GFR (MDRD) Non-Af 46 L, BUN/Creatinine Ratio 9.9 L, Glucose 151 H, Calcium 8.7 07/18/20 05:02: Cortisol 17.80 Medical Necessity - Tobacco Use Smoking Status: Never smoker Tobacco Use: Non-smoker Assessment/Plan All Active Problems Hyponatremia (Acute) Hyponatremia. serum sodium is around 126. was 115 on admit. reviewed epic from Dr Donis office. sodium was normal in july 2019. was on HCTZ but she has been on it for a while TSH is ok as per history she has diarrhea from laxatives but got fluids called lab, osm machine is broke. send out results back tomorrow at earliest cortisol is ok sodium is normal today ok to dc will follow in office
== END 2020-07-18 13:20 | disposition home health service (06) | DRG 641 ==
LOC: MS2 09:41 → PCU 14:41 → MS2 15:59 → PCU 16:00
PROVIDERS: Internal Medicine; Internal Medicine Nephrology; Nurse Practitioner Family; Admitting Provider Internal Medicine; PCP Internal Medicine; Visit Provider Family Medicine
DX: E87.1 Hypo-osmolality and hyponatremia (principal); E86.0 Dehydration; E86.1 Hypovolemia; R11.2 Nausea with vomiting, unspecified; I25.10 Atherosclerotic heart disease of native coronary artery without angina pectoris; M06.9 Rheumatoid arthritis, unspecified; E03.9 Hypothyroidism, unspecified; E78.5 Hyperlipidemia, unspecified; I12.9 Hypertensive chronic kidney disease with stage 1 through stage 4 chronic kidney disease, or unspecified chronic kidney disease; N18.3 Chronic kidney disease, stage 3 (moderate); K59.09 Other constipation; M10.9 Gout, unspecified; Z87.09 Personal history of other diseases of the respiratory system; Z95.5 Presence of coronary angioplasty implant and graft
CPT/HCPCS: 36415; 74176; 80048; 80053; 81001; 82436; 82533; 82550; 82570; 83735; 83935; 84133; 84156; 84300; 84443; 84550; 85025; 87635; 94799; 97110; 97116; 97162; 97166; 97530; 99251; J7030; G0463; U0003

== ENCOUNTER 2022-05-06 10:31 | Emergency (ER) | payer MEDICARE, SELFPAY ==
[2022-05-06 10:32] VITALS: BP 178/83; PULSE 92; RESP 16; TEMP 35.9; O2SAT 100; BMI 33.1
--- NOTE | 2022-05-06 10:56 | EX.ED.DYSGE1 ---
HPI History of Present Illness Chief Complaint: Edema Narrative Narrative: 76-year-old female here with concern for edema. History of hypertension, hyperlipidemia, hypothyroidism, CAD. The patient states she has 2 days of right lower extremity pain and swelling. Denies any trauma. States symptoms are constant, severe without alleviating exacerbating features. Denies any chest pain, shortness of breath. Denies any decreased urination. Denies any history of liver dysfunction. Patient denies any recent travel. Patient denies active cancer, being bedridden for greater than 3 days, major surgery within 12 weeks, recent paralysis, previous DVT. Old chart reviewed: Echocardiogram 2019 shows ejection fraction of 70% [facility] Medical History (Updated 05/06/22 @ 12:[address] Nomi Liu, DO) Back pain CAD (coronary artery disease) Chronic kidney disease Frozen shoulder Gout Hyperlipemia Hypertension Hypothyroidism Polyosteoarthritis Umbilical hernia Urinary incontinence Home Medications allopurinol 300 mg tablet 300 mg PO DAILY gout 08/12/16 [History Last Taken 12/31/18] atorvastatin 80 mg tablet 80 mg PO QHS cholesterol 08/12/16 [History Last Taken 12/31/18] clopidogrel 75 mg tablet 75 mg PO DAILY anti platelet 08/12/16 [History Last Taken 12/31/18] levothyroxine 125 mcg tablet 125 mcg PO DAILY thyroid 08/12/16 [History Last Taken 12/31/18] lisinopril 40 mg tablet 40 mg PO DAILY blood pressure 08/12/16 [History Last Taken 12/31/18] multivit with lgiptbgm-egkj-KC-lutein 8 mg iron-400 mcg-300 mcg tablet (Centrum Silver Women) 1 ea PO DAILY vitamin 08/12/16 [History Last Taken 12/31/18] nitroglycerin 0.4 mg sublingual tablet 0.4 mg sublingual Q5M PRN Chest Pain 08/12/16 [History Last Taken Unknown] coenzyme Q10 75 mg capsule (Co Q-10) 75 mg PO DAILY supplement 01/01/19 [History Last Taken 12/31/18] metoprolol succinate 25 mg tablet,extended release 24 hr (Toprol XL) 25 mg PO DAILY blood pressure 01/01/19 [History Last Taken 12/31/18] omega 7-qhs-dud-fish oil 500 mg (200mg-300mg)-1,000 mg capsule 1,200 mg PO DAILY supplement 01/01/19 [History Last Taken Unknown] calcium citrate 315 mg calcium-vitamin D3 6.25 mcg (250 unit) tablet 1 ea PO MOTH supplement 07/14/20 [History Last Taken Unknown] Focus Factor 1 tab PO/SL DAILY 05/06/22 [History Last Taken Unknown] apixaban 5 mg tablet (Eliquis) 10 mg PO BID 7 days #28 tabs 05/06/22 [Rx Last Taken Unknown] clindamycin HCl 150 mg capsule 150 mg PO X1 05/06/22 [History Last Taken Unknown] Allergy/AdvReac Type Severity Reaction Status Date / Time Penicillins Allergy Swelling Verified 05/06/22 10:38 meperidine [From Demerol] AdvReac Vomiting Verified 05/06/22 10:38 SODIUM PENTATHAL AdvReac Vomiting Uncoded 05/06/22 10:38 Social History Smoking Status: Never smoker ROS ROS ED Eyes Eyes: Denies other visual disturbances ENT ENT ED: Denies ear pain Cardiovascular Cardiovascular: Denies chest pain Respiratory/Chest Respiratory/Chest: Denies dyspnea Gastrointestinal Gastrointestinal: Denies abdominal pain Genitourinary Genitourinary ED: Denies dysuria Musculoskeletal Musculoskeletal: Reports other Details: Patient notes right calf tenderness, right leg swelling that is worse than baseline ; Denies joint pain Integumentary Denies rash Neurologic Neurologic: Denies dizziness, focal weakness, numbness, syncope or weakness Psychiatric Psychiatric: Denies homicidal ideation or suicidal ideation EXAM Physical Exam Const Vital Signs: 05/06/22 10:32 05/06/22 12:37 Temperature 96.6 F L Temperature Source Temporal Pulse Rate 92 94 Respiratory Rate 16 18 Blood Pressure 178/83 H 179/94 H Blood Pressure Mean 114 Pulse Ox 100 98 Oxygen Delivery Method Room Air Negative for alert or oriented x3 General Appearance ED: Negative for comfortable Orientation / Consciousness: Negative for awake HEENT Denies normocephalic Face and Sinus: Negative for face symmetric External Ear: Negative for external ears normal Mouth ED: No moist mucous membranes normal Throat: Negative for posterior oropharynx normal Eyes Negative for PERRL or EOMs intact bilaterally Neck No full ROM Carotids: other Other Details: no carotid bruits Chest Wall Negative for inspection of chest normal Resp No normal respiratory effort, No no retractions, No no use of accessory muscles and No clear to auscultation bilaterally Cardio Negative for no murmurs or peripheral pulses 2+ throughout GI Negative for no bruits GI Narrative: no pulsatile abdominal masses Negative for no CVA tenderness Back/Spine Cervical Spine: Negative for cervical ROM normal Extremity Negative for normal to inspection or full ROM Extremity Narrative: Right lower extremity is warm well perfused, compartments are soft, there is calf tenderness on the right side. 1+ pitting edema in the right lower extremity. Full range of motion in flexion extension of the ankle, knee. General Extremety ED: Yes edema and tenderness General Extremity: edema Neuro Neuro Narrative: Patient followed 5 strength in bilateral lower extremities, intact sensation in all dermatomes of the right and left lower extremity, intact patellar reflex. Sensorium / Orientation: alert Motor Exam: strength 5/5 throughout Skin no rashes or lesions noted Skin Narrative: No crepitus or bullae noted MDM MDM MDM Narrative Medical decision making narrative: 76-year-old female here with unilateral leg swelling. Patient was hemodynamically stable, afebrile, nontoxic-appearing. She had a low risk DVT score. She had no trauma. Low suspicion for fracture or dislocation. No evidence of infection, necrotizing fasciitis. Compartments are soft. Right lower extremity is neurovascular intact. Concern for DVT. Obtain a DVT ultrasound. Ultrasound showed evidence of posterior tibial vein DVT. We will prophylactic treat the patient with Eliquis to prevent propagation. Reviewed the patient's renal dysfunction. There is no contraindication to Eliquis at this time. Radiography Diagnostic Testing: Clinical Impression(s) from Imaging Studies Venous Doppler Study 05/06/22 11:10 Interpretation Summary Acute deep venous thrombosis right posterior tibial vein. Patent and compressible right great saphenous vein Ordering Physician: Nomi Liu Referring Physician: Rocío Art Performed By: Ml Oglesby RVT Treatment and Re-Evaluation Narrative: On reevaluation patient's right lower extremity remained neurovascular intact. She continued to deny any chest pain or shortness of breath. Discharge Plan Triage Chief Complaint: Edema ED Provider: Nomi Liu Dx/Rx/DC Orders Clinical Impression: DVT (deep venous thrombosis) Instructions: Apixaban Oral tablet Prescriptions: New Eliquis 5 mg tablet 10 mg PO BID 7 Days Qty: 28 0RF No Action atorvastatin 80 MG tablet 80 mg PO QHS Label Comments: cholesterol clopidogrel 75 MG tablet 75 mg PO DAILY Label Comments: anti-platelet levothyroxine 125 MCG tablet 125 mcg PO DAILY Label Comments: thyroid nitroglycerin 0.4 MG tablet 0.4 mg sublingual Q5M PRN (Reason: Chest Pain) Label Comments: chest pain allopurinol 300 MG tablet 300 mg PO DAILY Label Comments: gout lisinopril 40 MG tablet 40 mg PO DAILY Label Comments: blood pressure Centrum Silver Women 1 EACH tablet 1 ea PO DAILY Label Comments: multivitamin metoprolol succinate [Toprol XL] 25 MG tablet extended release 24 hr 25 mg PO DAILY Co Q-10 75 MG capsule 75 mg PO DAILY omega 9-ydm-pje-fish oil 1 EACH capsule 1,200 mg PO DAILY calcium citrate-vitamin D3 1 EACH tablet 1 ea PO MOTH clindamycin HCl 150 mg Capsule 150 mg PO X1 Rx Instructions: PRIOR TO DENTIST APPT Focus Factor 1 tab PO/SL DAILY Primary Care Provider: Rocío Art Referrals: Rocío Art MD [Primary Care Provider] - Activity Restrictions/Additional Instructions: Please return to the emergency department immediately if develop head trauma, bleeding of any sort including nose bleeding, blood in your vomitus, blood in your stool, blood in your urine. Please return if you develop chest pain or shortness of breath as these are signs of a blood clot in the lung. Please follow-up with your primary care physician within the next week for reevaluation to determine if you should continue with Eliquis. Disposition Disposition: Home, Self Care
--- NOTE | 2022-05-06 11:10 | VDLE_ITS ---
Reason For Study: Swelling RIGHT GSV is normal. CFV is compressible, spontaneous, phasic, competent and demonstrates normal augmentation. FV is compressible, spontaneous, phasic, competent and demonstrates normal augmentation. POP V is compressible, spontaneous, phasic, competent and demonstrates normal augmentation. T/P Trunk is compressible. RT PerV is compressible. Acute deep vein thrombosis is noted in the right posterior tibial vein. Procedure This is a venous duplex using B-mode, color flow and spectral Doppler. Exam performed portable in ED. A preliminary report was called and/or faxed to [facility]. VL/Venous Duplex US, Unilateral Interpretation Summary Acute deep venous thrombosis right posterior tibial vein. Patent and compressible right great saphenous vein Ordering Physician: Nomi Liu Referring Physician: Rocío Art Performed By: Ml Oglesby RVT
[2022-05-06] MEDS: APIXABAN 5 MG TABLET 10 MG PO (12:36)
[2022-05-06 12:37] VITALS: BP 179/94; PULSE 94; RESP 18; O2SAT 98
== END 2022-05-06 14:12 | disposition home or self-care (01) ==
PROVIDERS: Emergency Provider Emergency Medicine; PCP Internal Medicine; Visit Provider Emergency Medicine
DX: I82.441 Acute embolism and thrombosis of right tibial vein (principal); I12.9 Hypertensive chronic kidney disease with stage 1 through stage 4 chronic kidney disease, or unspecified chronic kidney disease; I25.10 Atherosclerotic heart disease of native coronary artery without angina pectoris; E78.5 Hyperlipidemia, unspecified; N18.9 Chronic kidney disease, unspecified; E03.9 Hypothyroidism, unspecified; Z79.899 Other long term (current) drug therapy
CPT/HCPCS: 93971; 99284

== ENCOUNTER 2022-05-19 10:50 | Emergency (ER) | payer MEDICARE, SELFPAY ==
[2022-05-19 10:51] VITALS: BP 160/102; PULSE 104; RESP 16; TEMP 36.6; O2SAT 100; BMI 35.5
--- NOTE | 2022-05-19 11:11 | EX.ED.UPPERE ---
HPI History of Present Illness Chief Complaint: Upper Extremity Injury Detail of Chief Complaint: Bruising to left arm Informant: patient Narrative Narrative: Patient present secondary to bruising to her left arm. She was recently started on Eliquis for right lower extremity DVT. She was reading her discharge instructions yesterday which stated that if she develops any unusual bleeding she needs to be evaluated. She noted some abrasions on her left arm with some slight bruising yesterday and came in for evaluation. The area is not tender to palpation. She is had no other source of blood loss. [facility] Medical History Back pain CAD (coronary artery disease) Chronic kidney disease Frozen shoulder Gout Hyperlipemia Hypertension Hypothyroidism Polyosteoarthritis Umbilical hernia Urinary incontinence Home Medications allopurinol 300 mg tablet 300 mg PO DAILY gout 08/12/16 [History Last Taken 12/31/18] atorvastatin 80 mg tablet 80 mg PO QHS cholesterol 08/12/16 [History Last Taken 12/31/18] clopidogrel 75 mg tablet 75 mg PO DAILY anti platelet 08/12/16 [History Last Taken 12/31/18] levothyroxine 125 mcg tablet 125 mcg PO DAILY thyroid 08/12/16 [History Last Taken 12/31/18] lisinopril 40 mg tablet 40 mg PO DAILY blood pressure 08/12/16 [History Last Taken 12/31/18] multivit with oeulgknf-vcdf-MQ-lutein 8 mg iron-400 mcg-300 mcg tablet (Centrum Silver Women) 1 ea PO DAILY vitamin 08/12/16 [History Last Taken 12/31/18] nitroglycerin 0.4 mg sublingual tablet 0.4 mg sublingual Q5M PRN Chest Pain 08/12/16 [History Last Taken Unknown] coenzyme Q10 75 mg capsule (Co Q-10) 75 mg PO DAILY supplement 01/01/19 [History Last Taken 12/31/18] metoprolol succinate 25 mg tablet,extended release 24 hr (Toprol XL) 25 mg PO DAILY blood pressure 01/01/19 [History Last Taken 12/31/18] omega 6-xsf-dpr-fish oil 500 mg (200mg-300mg)-1,000 mg capsule 1,200 mg PO DAILY supplement 01/01/19 [History Last Taken Unknown] calcium citrate 315 mg calcium-vitamin D3 6.25 mcg (250 unit) tablet 1 ea PO MOTH supplement 07/14/20 [History Last Taken Unknown] Focus Factor 1 tab PO/SL DAILY 05/06/22 [History Last Taken Unknown] apixaban 5 mg tablet (Eliquis) 10 mg PO BID 7 days #28 tabs 05/06/22 [Rx Last Taken Unknown] clindamycin HCl 150 mg capsule 150 mg PO X1 05/06/22 [History Last Taken Unknown] Allergy/AdvReac Type Severity Reaction Status Date / Time Penicillins Allergy Swelling Verified 05/19/22 10:53 meperidine [From Demerol] AdvReac Vomiting Verified 05/19/22 10:53 SODIUM PENTATHAL AdvReac Vomiting Uncoded 05/19/22 10:53 Social History Smoking Status: Never smoker ROS ROS ED Constitutional Constitutional ED: Denies chills or fever(s) Eyes Eyes: Denies change in vision or discharge from eye(s) ENT ENT ED: Denies discharge from eye(s), rhinorrhea or sore throat Cardiovascular Cardiovascular: Denies chest pain or palpitations Respiratory/Chest Respiratory/Chest: Denies cough or dyspnea Gastrointestinal Gastrointestinal: Denies abdominal pain, diarrhea, nausea or vomiting Genitourinary Genitourinary ED: Denies difficulty urinating or dysuria Musculoskeletal Musculoskeletal: Denies back pain or extremity pain Integumentary Reports Abrasions; Denies rash Neurologic Neurologic: Denies headache(s) or weakness Allergic/Immunologic Allergic/Immunologic ED: Denies lip swelling or urticaria EXAM Physical Exam Const Vital Signs: 05/19/22 10:51 Temperature 97.8 F Temperature Source Temporal Pulse Rate 104 H Respiratory Rate 16 Blood Pressure 160/102 H Blood Pressure Mean 121 Pulse Ox 100 Oxygen Delivery Method Room Air Positive well nourished and well developed General Appearance ED: well developed HEENT Reports normocephalic and head/scalp atraumatic Eyes PERRL and EOMs intact bilaterally Neck supple Chest Wall inspection of chest normal and palpation of chest normal Resp normal respiratory effort and clear to auscultation bilaterally Cardio regular rate and regular rhythm GI normal to inspection, nondistended, normoactive bowel sounds Palpation: soft Extremity Extremity Narrative: Abrasions noted to the left forearm. No underlying hematoma. No active bleeding. Neuro oriented x3 and no sensory deficits noted Sensorium / Orientation: alert Psych mental status grossly normal MDM MDM MDM Narrative Medical decision making narrative: Left forearm wound is cleansed and dressed. Reassurance provided. I advised patient to watch for deep developing hematomas, bleeding around her gums or nosebleeds, blood in stool etc. Discharge Plan Triage Chief Complaint: Upper Extremity Injury ED Provider: Myesha Neff Dx/Rx/DC Orders Clinical Impression: Abrasion Instructions: ED Abrasion Prescriptions: No Action atorvastatin 80 MG tablet 80 mg PO QHS Label Comments: cholesterol clopidogrel 75 MG tablet 75 mg PO DAILY Label Comments: anti-platelet levothyroxine 125 MCG tablet 125 mcg PO DAILY Label Comments: thyroid nitroglycerin 0.4 MG tablet 0.4 mg sublingual Q5M PRN (Reason: Chest Pain) Label Comments: chest pain allopurinol 300 MG tablet 300 mg PO DAILY Label Comments: gout lisinopril 40 MG tablet 40 mg PO DAILY Label Comments: blood pressure Centrum Silver Women 1 EACH tablet 1 ea PO DAILY Label Comments: multivitamin metoprolol succinate [Toprol XL] 25 MG tablet extended release 24 hr 25 mg PO DAILY Co Q-10 75 MG capsule 75 mg PO DAILY omega 9-wvj-ggi-fish oil 1 EACH capsule 1,200 mg PO DAILY calcium citrate-vitamin D3 1 EACH tablet 1 ea PO MOTH clindamycin HCl 150 mg Capsule 150 mg PO X1 Rx Instructions: PRIOR TO DENTIST APPT Focus Factor 1 tab PO/SL DAILY Eliquis 5 mg tablet 10 mg PO BID 7 Days Qty: 28 0RF Primary Care Provider: Rocío Art Referrals: Rocío Art MD [Primary Care Provider] - As Needed Disposition Disposition: Home, Self Care
== END 2022-05-19 11:29 | disposition home or self-care (01) ==
LOC: ED 11:15
PROVIDERS: Emergency Provider Emergency Medicine; PCP Internal Medicine; Visit Provider Emergency Medicine
DX: S50.812A Abrasion of left forearm, initial encounter (principal); I25.10 Atherosclerotic heart disease of native coronary artery without angina pectoris; I12.9 Hypertensive chronic kidney disease with stage 1 through stage 4 chronic kidney disease, or unspecified chronic kidney disease; N18.9 Chronic kidney disease, unspecified; E78.5 Hyperlipidemia, unspecified; X58.XXXA Exposure to other specified factors, initial encounter; M10.9 Gout, unspecified; E03.9 Hypothyroidism, unspecified; Z79.02 Long term (current) use of antithrombotics/antiplatelets; Z79.899 Other long term (current) drug therapy; Z86.718 Personal history of other venous thrombosis and embolism; Z79.01 Long term (current) use of anticoagulants
CPT/HCPCS: 99282

== ENCOUNTER 2022-10-24 13:44 | Emergency (ER) | payer MEDICARE, SELFPAY ==
[2022-10-24 13:44] VITALS: BP 180/106; PULSE 96; RESP 15; TEMP 36.2; O2SAT 100; BMI 33.9
--- NOTE | 2022-10-24 15:02 | RAD_ITS ---
STUDY: X-RAY - PELVIS AND LEFT HIP REASON FOR EXAM: Female, 77 years old. Hip pain following a fall. TECHNIQUE: 3 views of the pelvis and hip. COMPARISON: None. FINDINGS: There is a non-specific bowel gas pattern. Normal visualized soft tissue structures. Normal bilateral iliac wings, sacroiliac joints and visualized sacrum. Normal bilateral superior and inferior pubic rami. There are degenerative changes of the pubic symphysis with articular narrowing and sclerosis. Normal bilateral ischial tuberosities. The patient is status post right total hip replacement. Normal visualized femoral head. Normal acetabulum. is severe articular joint space narrowing of the hip. RAD/HIP, UNI W/ Pelvis 2-3 Views IMPRESSION: Marked degree of joint space narrowing of the left hip joint. Electronically Signed: Chandrakant Allison MD at 15:31 EST ,
--- NOTE | 2022-10-24 15:22 | ED.VIS.LOWEX ---
HPI History of Present Illness Chief Complaint: Lower Extremity Injury Narrative Narrative: 77-year-old female presenting with pain in the proximal thigh. She states she had mechanical fall a few days ago. The pain has been there since then. She states she is ambulatory and able to walk with her walker which is her baseline. She states that when she sits on the commode or sits down it tends to hurt a little bit more. Patient is anticoagulated for history of DVT. She has not missed any doses. She denies hitting her head. She states she landed only on her buttocks. She states she does not feel ill. She does not have any pain elsewhere. [facility] Medical History Back pain CAD (coronary artery disease) Chronic kidney disease Frozen shoulder Gout Hyperlipemia Hypertension Hyponatremia Hypothyroidism Polyosteoarthritis Umbilical hernia Urinary incontinence Home Medications allopurinol 300 mg tablet 300 mg PO DAILY gout 08/12/16 [History Last Taken 12/31/18] atorvastatin 80 mg tablet 80 mg PO QHS cholesterol 08/12/16 [History Last Taken 12/31/18] clopidogrel 75 mg tablet 75 mg PO DAILY anti platelet 08/12/16 [History Last Taken 12/31/18] levothyroxine 125 mcg tablet 125 mcg PO DAILY thyroid 08/12/16 [History Last Taken 12/31/18] lisinopril 40 mg tablet 40 mg PO DAILY blood pressure 08/12/16 [History Last Taken 12/31/18] multivit with ifhynaux-exow-QT-lutein 8 mg iron-400 mcg-300 mcg tablet (Centrum Silver Women) 1 ea PO DAILY vitamin 08/12/16 [History Last Taken 12/31/18] nitroglycerin 0.4 mg sublingual tablet 0.4 mg sublingual Q5M PRN Chest Pain 08/12/16 [History Last Taken Unknown] coenzyme Q10 75 mg capsule (Co Q-10) 75 mg PO DAILY supplement 01/01/19 [History Last Taken 12/31/18] metoprolol succinate 25 mg tablet,extended release 24 hr (Toprol XL) 25 mg PO DAILY blood pressure 01/01/19 [History Last Taken 12/31/18] omega 2-ufn-dkt-fish oil 500 mg (200mg-300mg)-1,000 mg capsule 1,200 mg PO DAILY supplement 01/01/19 [History Last Taken Unknown] calcium citrate 315 mg calcium-vitamin D3 6.25 mcg (250 unit) tablet 1 ea PO MOTH supplement 07/14/20 [History Last Taken Unknown] Focus Factor 1 tab PO/SL DAILY 05/06/22 [History Last Taken Unknown] apixaban 5 mg tablet (Eliquis) 10 mg PO BID 7 days #28 tabs 05/06/22 [Rx Last Taken Unknown] clindamycin HCl 150 mg capsule 150 mg PO X1 05/06/22 [History Last Taken Unknown] Allergy/AdvReac Type Severity Reaction Status Date / Time Penicillins Allergy Swelling Verified 10/24/22 13:47 meperidine [From Demerol] AdvReac Vomiting Verified 10/24/22 13:47 thiopental AdvReac Vomiting Verified 10/24/22 13:47 [From sodium pentothal] Social History Smoking Status: Never smoker ROS ROS ED Constitutional Constitutional ED: Denies chills or fever(s) Eyes Eyes: Denies change in vision or diplopia ENT ENT ED: Denies rhinorrhea or sore throat Cardiovascular Cardiovascular: Denies chest pain or palpitations Respiratory/Chest Respiratory/Chest: Denies cough or dyspnea Gastrointestinal Gastrointestinal: Denies abdominal pain Genitourinary Genitourinary ED: Denies dysuria or hematuria Musculoskeletal Musculoskeletal: Reports other Details: Left thigh pain Integumentary Denies abscess or Abrasions Neurologic Neurologic: Denies headache(s) Psychiatric Psychiatric: Denies anxiety or depression EXAM Physical Exam Const Vital Signs: 10/24/22 13:44 Temperature 97.1 F L Temperature Source Temporal Pulse Rate 96 Respiratory Rate 15 Blood Pressure 180/106 H Blood Pressure Mean 130 Pulse Ox 100 Oxygen Delivery Method Room Air Positive well nourished HEENT Reports moist mucous membranes normocephalic Chest Wall inspection of chest normal Resp normal respiratory effort Cardio regular rate and regular rhythm GI non-tender Extremity Extremity Narrative: Tenderness to palpation left proximal thigh. Leg is not shortened or externally rotated. Negative logroll. No evidence of hematoma. Neuro oriented x3 and CN's II-XII intact bilaterally Sensorium / Orientation: alert Motor Exam: strength 5/5 throughout Psych mental status grossly normal Skin no wounds MDM MDM MDM Narrative Medical decision making narrative: Patient presenting with left hip pain. Seems to be in the proximal thigh. There is no evidence of hematoma. She is on blood thinners and I do not suspect a DVT. I obtained a left hip x-ray which on my interpretation shows no acute fracture. The radiologist interprets this is agrees. He states there is some joint space narrowing. Patient counseled on all findings. I feel patient is stable for discharge at this time. She will follow-up with her PCP and ensure resolution. Impression: 1. Left hip pain 2. Mechanical fall Radiography Diagnostic Testing: Clinical Impression(s) from Imaging Studies Hip/Pelvis X-Ray 10/24/22 15:02 IMPRESSION: Marked degree of joint space narrowing of the left hip joint. Electronically Signed: Chandrakant Allison MD at 15:31 EST , Discharge Plan Triage Chief Complaint: Lower Extremity Injury ED Provider: Rhett Kumar Dx/Rx/DC Orders Prescriptions: No Action atorvastatin 80 MG tablet 80 mg PO QHS Label Comments: cholesterol clopidogrel 75 MG tablet 75 mg PO DAILY Label Comments: anti-platelet levothyroxine 125 MCG tablet 125 mcg PO DAILY Label Comments: thyroid nitroglycerin 0.4 MG tablet 0.4 mg sublingual Q5M PRN (Reason: Chest Pain) Label Comments: chest pain allopurinol 300 MG tablet 300 mg PO DAILY Label Comments: gout lisinopril 40 MG tablet 40 mg PO DAILY Label Comments: blood pressure Centrum Silver Women 1 EACH tablet 1 ea PO DAILY Label Comments: multivitamin metoprolol succinate [Toprol XL] 25 MG tablet extended release 24 hr 25 mg PO DAILY Co Q-10 75 MG capsule 75 mg PO DAILY omega 4-tzk-jci-fish oil 1 EACH capsule 1,200 mg PO DAILY calcium citrate-vitamin D3 1 EACH tablet 1 ea PO MOTH clindamycin HCl 150 mg Capsule 150 mg PO X1 Rx Instructions: PRIOR TO DENTIST APPT Focus Factor 1 tab PO/SL DAILY Eliquis 5 mg tablet 10 mg PO BID 7 Days Qty: 28 0RF Primary Care Provider: Rocío Art Referrals: Rocío Art MD [Primary Care Provider] -
[2022-10-24 15:37] VITALS: RESP 18
== END 2022-10-24 16:12 | disposition home or self-care (01) ==
PROVIDERS: Emergency Provider Student in an Organized Health Care Education/Training Program; PCP Internal Medicine; Visit Provider Student in an Organized Health Care Education/Training Program
DX: M25.552 Pain in left hip (principal); E78.5 Hyperlipidemia, unspecified; N18.9 Chronic kidney disease, unspecified; I25.10 Atherosclerotic heart disease of native coronary artery without angina pectoris; I12.9 Hypertensive chronic kidney disease with stage 1 through stage 4 chronic kidney disease, or unspecified chronic kidney disease; Z79.01 Long term (current) use of anticoagulants; Z86.718 Personal history of other venous thrombosis and embolism
CPT/HCPCS: 73502; 99282

== ENCOUNTER 2023-08-07 09:01 | Emergency (ER) | payer MEDICARE, SELFPAY ==
[2023-08-07] VITALS (9 sets, daily range): BP systolic 107–147; BP diastolic 59–95; PULSE 62–77; RESP 16–21; TEMP 36–36.2; O2SAT 97–100; BMI 26.9
--- NOTE | 2023-08-07 09:12 | EX.ED.UPPERE ---
HPI History of Present Illness Chief Complaint: Upper Extremity Injury Detail of Chief Complaint: Atraumatic right shoulder pain Occured/Mechanism Comment: Denies history of trauma or injury Onset/Context/Timing Onset: Weeks (Slightly greater than 1 week) Context: - (Was unaware that the shoulder was swollen. She states the pain started greater than 1 week ago) Timing: Continuous Quality of Pain: Dull Location: Right shoulder Current Severity: Mild Maximum Severity: Moderate Worsened by: Movement Relieved by: Nonuse Associated Symptoms Associated Symptoms: Negative for Parasthesia, Weakness or Loss of Funtion (Use is limited) Narrative Narrative: Teresa is an 78-year-old woman who is on Plavix and Eliquis due to cardiovascular disease who presents with reported atraumatic pain to the right shoulder. She was unaware that the shoulder was significantly swollen. She denies fever, chills night sweats. She denies history of gout or pseudogout. However, review of patient's med list indicates that she is on outpatient. She also reports arthritis and limited use of her fingers. She denies cardiac or respiratory symptoms. She denies paresthesia or anesthesia of her right upper extremity. Tetanus Immunization: Unknown Prior similar symptoms: No Recent Illness/Hospitalization: No PFSH PFSH Medical History Back pain CAD (coronary artery disease) Chronic kidney disease Frozen shoulder Gout Hyperlipemia Hypertension Hyponatremia Hypothyroidism Polyosteoarthritis Umbilical hernia Urinary incontinence Home Medications allopurinol 300 mg tablet 300 mg PO DAILY gout 08/12/16 [History Last Taken 12/31/18] atorvastatin 80 mg tablet 80 mg PO QHS cholesterol 08/12/16 [History Last Taken 12/31/18] clopidogrel 75 mg tablet 75 mg PO DAILY anti platelet 08/12/16 [History Last Taken 12/31/18] levothyroxine 125 mcg tablet 125 mcg PO DAILY thyroid 08/12/16 [History Last Taken 12/31/18] lisinopril 40 mg tablet 40 mg PO DAILY blood pressure 08/12/16 [History Last Taken 12/31/18] [id number]-viju 8 mg-folic 400 mcg-K 50 mcg-lutein 300 mcg tablet (Centrum Silver Women) 1 ea PO DAILY vitamin 08/12/16 [History Last Taken 12/31/18] nitroglycerin 0.4 mg sublingual tablet 0.4 mg sublingual Q5M PRN Chest Pain 08/12/16 [History Last Taken Unknown] coenzyme Q10 75 mg capsule (Co Q-10) 75 mg PO DAILY supplement 01/01/19 [History Last Taken 12/31/18] metoprolol succinate 25 mg tablet,extended release 24 hr (Toprol XL) 25 mg PO DAILY blood pressure 01/01/19 [History Last Taken 12/31/18] omega 4-hap-sqo-fish oil 500 mg (200mg-300mg)-1,000 mg capsule 1,200 mg PO DAILY supplement 01/01/19 [History Last Taken Unknown] calcium citrate 315 mg calcium-vitamin D3 6.25 mcg (250 unit) tablet 1 ea PO MOTH supplement 07/14/20 [History Last Taken Unknown] Focus Factor 1 tab PO/SL DAILY 05/06/22 [History Last Taken Unknown] apixaban 5 mg tablet (Eliquis) 10 mg (2 x 5 mg) PO BID 7 days #28 tabs 05/06/22 [Rx Last Taken Unknown] clindamycin HCl 150 mg capsule 150 mg PO X1 05/06/22 [History Last Taken Unknown] hydrocodone-acetaminophen 5-325mg 5mg-325mg 1 tab PO Q6H PRN PRN Pain 3 days #10 TABLETS 08/07/23 [Rx Last Taken Unknown] Allergy/AdvReac Type Severity Reaction Status Date / Time Penicillins Allergy Swelling Verified 10/24/22 13:47 meperidine [From Demerol] AdvReac Vomiting Verified 10/24/22 13:47 thiopental AdvReac Vomiting Verified 10/24/22 13:47 [From sodium pentothal] Social History (Updated 08/07/23 @ 09:[address] Conner Siu MD) household members: none Smoking Status: Never smoker substance use type: does not use ROS ROS ED Constitutional Constitutional ED: Denies chills, fever(s), subjective, sweats or weight loss Cardiovascular Cardiovascular: Denies chest pain, orthopnea, palpitations, paroxysmal nocturnal dyspnea or racing heartbeat Respiratory/Chest Respiratory/Chest: Denies cough, dyspnea, dyspnea on exertion, orthopnea or paroxysmal nocturnal dyspnea Musculoskeletal Musculoskeletal: Denies back pain, myalgias or neck pain Integumentary Denies Abrasions or rash Neurologic Neurologic: Denies paresthesias or weakness Hematologic/Lymphatic Hematologic/Lymphatic: Reports easy bruising EXAM Physical Exam Const Vital Signs: 08/07/23 09:01 Temperature 96.8 F L Temperature Source Temporal Pulse Rate 71 Respiratory Rate 16 Blood Pressure 147/77 H Blood Pressure Mean 100 Pulse Ox 98 Oxygen Delivery Method Room Air Positive well nourished and well developed General Appearance ED: well developed and NAD; Negative for cyanotic HEENT Reports moist mucous membranes HEENT Narrative: Are normal. Nares are patent. Septum is midline. Posterior pharynx is normal. normocephalic and atraumatic Eyes PERRL and EOMs intact bilaterally Eyes Narrative: Adjunctive is pink. There is no subconjunctival hemorrhage noted. Neck full ROM and supple General: Negative for tenderness Chest Wall inspection of chest normal and palpation of chest normal Resp normal respiratory effort and clear to auscultation bilaterally Cardio regular rate, regular rhythm, S1 normal heart sound, S2 normal heart sound and no murmurs Extremity Negative for normal to inspection Extremity Narrative: There is swelling of the right shoulder. There is no erythema, warmth, induration or lymphangitis. There is no actual lymphadenopathy. Patient has limited range of motion i.e. internal and external rotation as well as abduction. Axillary, median, radial and ulnar function intact. Patient has arthritic changes of her PIP and DIP joint of multiple fingers and thumb. Neuro oriented x3, CN's II-XII intact bilaterally, moves all extremities, no focal motor deficits and no sensory deficits noted Sensorium / Orientation: alert Psych mental status grossly normal Skin General Skin Exam: Negative for petechiae Lesions: no lesions Rashes: no rashes MDM MDM MDM Narrative Medical decision making narrative: Left no history of trauma to patient's knowledge with complaint of swollen right shoulder with history of long-term anticoagulant use and gout need to assess for hemarthrosis versus subcu hematoma, crystal induced arthritis, degenerative joint disease. Since there is no erythema, warmth or lymphadenopathy blood work was not obtained. Suspect this is most likely hemarthrosis. PT/INR and PTT were not obtained since patient is on Eliquis and not Coumadin. Radiography Chest X-Ray - ED: 2 View and Read by ED Physician (There is an anterior subcoracoid shoulder dislocation without evidence of fracture.) Management Discussion w/another healthcare provider: [place] Examiner (Dr. Dunham who is on-call for orthopedics requested CT of the shoulder. CT of the shoulder was ordered. He asked to evaluate and assist in attempt to reduce once the CAT scan has been obtained and reviewed by him.) Treatment and Re-Evaluation Narrative: Dr. Dunham looked at the CT. She has marked degeneration of the humeral head. He suspect that she does have a hemarthrosis and due to the fact he is on antiplatelet and anticoagulant. He recommended sling discharged home with outpatient follow-up. Procedures Procedural Sedation 1 (Initial Baseline): Consent Signed: Yes Any Problems With Anesthesia: No You/Your family experience fever (hyperthermia) w/anesthesia: No Sedation medication: Propofol Dose: 60 Route: IV Total Moderate Sedation Units: 5 Maliampati Score: Class I ASA Classification: III Comment:: Explained risk benefits procedural sedation using propofol and risk of close reduction since this may have been out for greater than 1 week. She was given opportunity ask questions. She stated I have no questions . We will proceed with sedation using propofol and attempt at closed reduction. Other Procedures Procedure(s): Procedural sedation deep sedation, using propofol total of 60 mg. Patient had a sinus rhythm on the monitor with a rate of 74. Patient tolerated procedure well. Attempt at reduction of the anterior subcoracoid right shoulder dislocation was unsuccessful. Suspect she has adhesions since the shoulder may have been dislocated greater than 1 week. Will contact orthopedics Discharge Plan Triage Chief Complaint: Upper Extremity Injury ED Provider: Conner Siu Dx/Rx/DC Orders Clinical Impression: Anterior dislocation of right shoulder, Essential hypertension, Dyslipidemia, RA (rheumatoid arthritis), Coronary artery disease, Hemarthrosis of right shoulder, Anticoagulant long-term use Prescriptions: New hydrocodone-acetaminophen [hydrocodone-acetaminophen] 5-325 mg tablet 1 tab PO Q6H PRN PRN (Reason: Pain) 3 Days Qty: 10 0RF No Action atorvastatin 80 MG tablet 80 mg PO QHS Patient Comments: cholesterol clopidogrel 75 MG tablet 75 mg PO DAILY Patient Comments: anti-platelet levothyroxine 125 MCG tablet 125 mcg PO DAILY Patient Comments: thyroid nitroglycerin 0.4 MG tablet 0.4 mg sublingual Q5M PRN (Reason: Chest Pain) Patient Comments: chest pain allopurinol 300 MG tablet 300 mg PO DAILY Patient Comments: gout lisinopril 40 MG tablet 40 mg PO DAILY Patient Comments: blood pressure Centrum Silver Women 1 EACH tablet 1 ea PO DAILY Patient Comments: multivitamin metoprolol succinate [Toprol XL] 25 MG tablet extended release 24 hr 25 mg PO DAILY Co Q-10 75 MG capsule 75 mg PO DAILY omega 8-att-xgp-fish oil 1 EACH capsule 1,200 mg PO DAILY calcium citrate-vitamin D3 1 EACH tablet 1 ea PO MOTH clindamycin HCl 150 mg Capsule 150 mg PO X1 Rx Instructions: PRIOR TO DENTIST APPT Focus Factor 1 tab PO/SL DAILY Eliquis 5 mg tablet 10 mg PO BID 7 Days Qty: 28 0RF Primary Care Provider: Care Physician,No Primary Referrals: Rocío Art MD [Med Staff - Consumer Insights Intern] - Neal Dunham DO [Med Staff - Active Staff] - 5-7 Days Disposition Disposition: Home, Self Care
[2023-08-07] MEDS: HYDROcodone Bitartrate/Apap 5/325 Tablet PO (09:24)
--- NOTE | 2023-08-07 09:30 | RAD_ITS ---
STUDY: X-RAY - RIGHT SHOULDER REASON FOR EXAM: Female, 78 years old. Injury/Pain TECHNIQUE: 2 view(s) of the shoulder. COMPARISON: Comparison is made with prior examination dated August 16, 2016. FINDINGS: Anterior inferior dislocation of the glenohumeral joint. There is no widening of the coracoclavicular distance. There is widening of the AC joint, but without displacement of the clavicle or widening of the coracoclavicular distance, consistent with a Type II acromioclavicular joint separation. Normal acromion. Normal humeral head and visualized proximal humerus. The soft tissue structures are unremarkable. Normal visualized pulmonary apex. RAD/Shoulder min 2 Views IMPRESSION: Anterior inferior dislocation of the glenohumeral joint. Type II right acromioclavicular joint separation. Electronically Signed: Chandrakant Allison MD at 9:47 EDT ,
--- NOTE | 2023-08-07 09:35 | CM.ED ---
Social Work SW performed chart review; ADs on file. Patient's LW on file as of 2019 and HCPOA on file as of 2020, identifying co-agents Isaac Fall and Mary Kay Chávez and alternate is Jose Fall. Roselyn Negrete FOREIGN STUDENT ADVISER, JOSEPH
[2023-08-07] MEDS: Propofol 200 MG/20 ML Vial IV BOLUS (12:50)
--- NOTE | 2023-08-07 13:00 | RAD_ITS ---
STUDY: X-RAY - RIGHT SHOULDER REASON FOR EXAM: Female, 78 years old. Attempted postreduction TECHNIQUE: 2 view(s) of the shoulder. COMPARISON: Comparison is made with prior study done earlier today. FINDINGS: Persistent inferior anterior subluxation of the right glenohumeral joint. RAD/Shoulder min 2 Views IMPRESSION: Persistent anterior inferior subluxation of the right glenohumeral joint. Electronically Signed: Chandrakant Allison MD at 13:31 EDT ,
--- NOTE | 2023-08-07 13:13 | CT_ITS ---
STUDY: CT RIGHT SHOULDER REASON FOR EXAM: Female, 78 years old. Unable to reduce dislocation RADIATION DOSAGE (If Supplied By Facility): CTDIvol = ( 24.94 ) mGy, DLP = ( 456.58 ) mGycm TECHNIQUE: The patient was scanned in a multi detector CT scanner. High resolution transaxial imaging was performed without the administration of intravenous contrast material. Sagittal and coronal images were reconstructed. Individualized dose optimization techniques were used for this CT. COMPARISON: None. FINDINGS: There is severe osteoarthritis, with severe articular joint space narrowing, osteoarthritic spurring, articular remodeling, and with articular erosions. A regular appearance of the glenoid with subchondral cystic changes. Degenerative spur formation along the medial inferior aspect of the right humeral head. Subchondral cystic changes. Persistent inferior anterior subluxation. Normal coracoid process. Normal visualized lateral clavicle. There is moderate osteoarthritis with articular joint space narrowing and with osteoarthritic spurring. There is a Type II morphology (curved), with a neutral orientation. Normal visualized muscles and soft tissue structures. CT/Extremity Upper without Contra IMPRESSION: Persistent inferior anterior subluxation of the glenohumeral joint with a marked degree of osteoarthritis of the glenohumeral joint and the degenerative spur formation along the inferior medial aspect of the humeral head. Electronically Signed: Chandrakant Allison MD at 13:47 EDT ,
--- NOTE | 2023-08-07 15:05 | ED.RN ---
CALLED AND GAVE ALL THE INSTRUCTIONS AND HE VERBALIZED UNDERSTANDING
== END 2023-08-07 15:06 | disposition home or self-care (01) ==
PROVIDERS: Emergency Provider Emergency Medicine; Visit Provider Emergency Medicine
DX: S43.014A Anterior dislocation of right humerus, initial encounter (principal); M06.011 Rheumatoid arthritis without rheumatoid factor, right shoulder; I25.10 Atherosclerotic heart disease of native coronary artery without angina pectoris; E78.5 Hyperlipidemia, unspecified; I12.9 Hypertensive chronic kidney disease with stage 1 through stage 4 chronic kidney disease, or unspecified chronic kidney disease; Z79.01 Long term (current) use of anticoagulants; N18.9 Chronic kidney disease, unspecified; M10.9 Gout, unspecified; Z79.02 Long term (current) use of antithrombotics/antiplatelets; E03.9 Hypothyroidism, unspecified; X58.XXXA Exposure to other specified factors, initial encounter; M25.011 Hemarthrosis, right shoulder
CPT/HCPCS: 23655; 73030; 73200; 99285; J7030

== ENCOUNTER 2023-08-07 21:01 | Observation (INO) | payer MEDICARE, SELFPAY ==
[2023-08-07 21:02] VITALS: BP 135/74; PULSE 77; RESP 18; TEMP 36.6; O2SAT 99; BMI 27.2
[2023-08-07 21:51] VITALS: BP 152/70; PULSE 72; RESP 14; TEMP 36.7; O2SAT 96
--- NOTE | 2023-08-07 23:51 | EKG12_ITS ---
Test Reason : GEN ILL Blood Pressure : / mmHG Vent. Rate : 075 BPM Atrial Rate : 075 BPM P-R Int : 164 ms QRS Dur : 080 ms QT Int : 390 ms P-R-T Axes : 007 -21 040 degrees QTc Int : 435 ms Normal sinus rhythm Minimal voltage criteria for LVH, may be normal variant ( R in aVL ) Inferior infarct (cited on or before 01-JAN-2019) Cannot rule out Anterior infarct (cited on or before 01-JAN-2019) Abnormal ECG Confirmed by JENS MOELLER, MARK ([id number]), movie editor JUJU FORMAN ([id number]) on 08/12/2023 11:35:45 AM Referred By: Royce Nicholas Confirmed By:JUAN DIEGO COLINDRES MD
--- NOTE | 2023-08-07 23:54 | EDS_ITS ---
HPI History of Present Illness Chief Complaint: General Illness Narrative Narrative: 78 female, lives at home with her who is 83 years old, presents with her grandson who is an RN because of inability to take care of herself. Of note, she was seen in the emergency department earlier today and diagnosed with a shoulder dislocation. She may have had a dislocation for greater than a week. She states that there is blood in there and she underwent procedural sedation today for closed reduction of her right shoulder. She was discharged home, but her grandson states that she is unable to get up and go to the bathroom independently and perform her ADLs, and her is unable to help her. He called [facility]/rehab and was told that there is a space for her. [facility] Medical History Back pain CAD (coronary artery disease) Chronic kidney disease Frozen shoulder Gout Hyperlipemia Hypertension Hyponatremia Hypothyroidism Polyosteoarthritis Umbilical hernia Urinary incontinence Home Medications atorvastatin 80 mg tablet 80 mg PO QHS cholesterol 08/12/16 [History Last Taken 12/31/18] clopidogrel 75 mg tablet 75 mg PO DAILY anti platelet 08/12/16 [History Last Taken 12/31/18] levothyroxine 125 mcg tablet 125 mcg PO DAILY thyroid 08/12/16 [History Last Taken 12/31/18] lisinopril 40 mg tablet 40 mg PO DAILY blood pressure 08/12/16 [History Last Taken 12/31/18] nitroglycerin 0.4 mg sublingual tablet 0.4 mg sublingual Q5M PRN Chest Pain 08/12/16 [History Last Taken Unknown] metoprolol succinate 25 mg tablet,extended release 24 hr (Toprol XL) 25 mg PO DAILY blood pressure 01/01/19 [History Last Taken 12/31/18] HYDROcodone-acetaminophen 1 tab PO Q6H PRN PAIN 08/08/23 [History Last Taken Unknown] Vitamin D2 50,000 u PO .WEEKLY 08/08/23 [History Last Taken Unknown] Allergy/AdvReac Type Severity Reaction Status Date / Time Penicillins Allergy Swelling Verified 08/07/23 21:04 meperidine [From Demerol] AdvReac Vomiting Verified 08/07/23 21:04 thiopental AdvReac Vomiting Verified 08/07/23 21:04 [From sodium pentothal] Social History household members: none Smoking Status: Never smoker substance use type: does not use ROS ROS ED ROS Narrative Constitutional: No fever, no chills. Inability to perform ADLs. HEENT: No sore throat. No neck pain. No loss of vision. No rhinorrhea. Cardiovascular: No chest pain. No palpitations. No pedal edema. Respiratory: No cough, no shortness of breath. Abdominal: No abdominal pain. No nausea. No vomiting. Genitourinary: No dysuria. No hematuria. Musculoskeletal: No myalgias. Right shoulder pain secondary to recent dislocation/closed reduction. Neurologic: No headaches. No dizziness. No lightheadedness. Skin: No rash. No change in color. Psychiatric: No depression. No anxiety. EXAM Physical Exam Narrative Exam Narrative: Afebrile. Vital signs noted. Yes 15. ABCs intact. HEENT: Normocephalic. Atraumatic. PERRL, EOMI. Neck soft and supple. No point tenderness or step off. Cardiovascular: Regular rate and rhythm. No murmurs, rubs, or gallops appreciated. Respiratory: No tachypnea. Lungs clear to auscultation bilaterally. Gastrointestinal: Abdomen soft, nontender, with normoactive bowel sounds. No rebound or guarding. Neurological: Awake. Alert. Nonfocal, nonlateralizing. Skin: No rash. Normal color. No pallor. Musculoskeletal: No pedal edema. Right shoulder in sling with Maxwell wrap for swath. Const Vital Signs: 08/07/23 21:02 08/07/23 23:01 08/08/23 00:35 Temperature 97.9 F Temperature Source Temporal Pulse Rate 77 Respiratory Rate 18 18 Respiratory Effort Normal Non-Labored Respiratory Pattern Normal Blood Pressure 135/74 H Blood Pressure Mean 94 Pulse Ox 99 Oxygen Delivery Method Room Air MDM MDM MDM Narrative Medical decision making narrative: I reviewed the patient's prior record. She had no laboratory work performed today. She needs to be admitted because she is unable to perform her ADLs. Basic laboratory work was performed along with EKG and urinalysis. I will discuss patient with the hospitalist. KG obtained and interpreted by myself independently demonstrates normal sinus rhythm at 75 bpm without ectopy or acute ST changes. No STEMI. I reviewed her laboratory work from today and she has normal white count of 9.2, hemoglobin normal at 13.3, platelet count normal at 265, sodium is normal at 136 with potassium of 4.1, anion gap low at 4, glucose appropriately elevated at 108. AST is low at 13 which I think is nonspecific. High-sensitivity troponin normal at 13. Regardless of urinalysis, she is unable to perform activities of daily living and even get to the bathroom. Urinalysis is negative for infection. I do not feel antibiotics are indicated. I will discuss patient with the hospitalist for observation. Patient is in stable condition. History & Record Review Discussion w/independent historian: Patient and Family Additional record(s) reviewed:: Prior ED visit and Prior labs Lab Data Attestation: I reviewed the patient's lab results. Labs: Laboratory Results - last 24 hr 08/08/23 08/08/23 00:30 01:15 WBC 9.2 RBC 3.99 L Hgb 13.3 Hct 39.3 MCV 98.5 MCH 33.3 H MCHC 33.8 RDW Std Deviation 54.4 H RDW Coeff of Robin 15.0 H Plt Count 265 MPV 8.9 Immature Gran % (Auto) 0.400 Neut % (Auto) 71.7 H Lymph % (Auto) 17.1 L [place] % (Auto) 8.9 Eos % (Auto) 1.5 Baso % (Auto) 0.4 Absolute Neuts (auto) 6.6 Absolute Lymphs (auto) 1.58 Nucleated RBC % 0 Sodium 136 Potassium 4.1 Chloride 103 Carbon Dioxide 29.0 Anion Gap 4 L BUN 16 Creatinine 0.67 Estim Creat Clear Calc 42.00 Est GFR (MDRD) Af Amer 109 Est GFR (MDRD) Non-Af 90 BUN/Creatinine Ratio 23.8 H Glucose 108 H Calcium 10.4 H Total Bilirubin 1.00 AST 13 L ALT 18 Alkaline Phosphatase 99 Troponin I High Sens 13 Total Protein 6.8 Albumin 3.5 Globulin 3.3 Albumin/Globulin Ratio 1.1 Urine Color Yellow Urine Clarity Clear Urine pH 6.0 Ur Specific Roby 1.020 Urine Protein Negative Urine Glucose (UA) Normal Urine Ketones Negative Urine Occult Blood Negative Urine Nitrite Negative Urine Bilirubin Negative Urine Urobilinogen Normal Ur Leukocyte Esterase Negative Urine RBC 0 SEEN Urine WBC 0 SEEN Ur Squamous Epith Cells 0 SEEN Urine Bacteria 0 SEEN Urine Mucus 0 SEEN Differential Diagnosis Differential Diagnosis: Not applicable Management Discussion w/another healthcare provider: Hospitalist (Dr. Nicholas) Discharge Plan Dx/Rx/DC Orders Clinical Impression: Hemarthrosis of right shoulder, Essential hypertension, Inability to perform activities of daily living, Weakness Disposition Disposition: Acute Care Hospital [facility]
[2023-08-08 00:35] VITALS: RESP 18
[2023-08-08 00:37] LABS: Absolute Lymphocyte Count 1.58 X10^3/uL (0.83-4.51); Absolute Neutrophil Count 6.6 X10^3/uL (2.0-7.7); Basophil# 0.04 X10^3/uL; Basophil% 0.4 % (0-1); Eosinophil# 0.14 X10^3/uL; Eosinophils% 1.5 % (0-5); Hematocrit 39.3 % (37-47); Hemoglobin 13.3 g/dL (12.0-15.0); Lymphocyte # 1.58 X10^3/ul (0.83-4.51); Lymphocyte % 17.1 % (19-41); Mean Corp Hgb Conc 33.8 g/dL (32-36); Mean Corpuscular Hgb 33.3 pg (27.0-32.0); Mean Corpuscular Volume 98.5 fL (81-99); Mean Platelet Vol. 8.9 fl (6.2-12.0); Monocyte# 0.82 X10^3/uL; Monocyte% 8.9 % (0-10); NRBC Flagged by Analyzer 0 % (0-5); Neutrophil # 6.61 X10^3/uL (2.7-7.7); Neutrophil % 71.7 % (47-70); Platelet Count 265 K/mm3 (150-450); RBC Distribution Width SD 54.4 fl (35.1-43.9); Red Blood Count 3.99 M/mm3 (4.2-5.4); White Blood Count 9.2 K/mm3 (4.4-11.0)
[2023-08-08 00:55] LABS: ALB/GLOB Ratio 1.1 RATIO (0.9-2.4); AST(SGOT) 13 U/L (15-37); Alanine Aminotransfer ALT/SGPT 18 U/L (13-56); Albumin, Serum 3.5 g/dL (3.2-5.0); Alkaline Phosphatase 99 U/L (45-117); Anion Gap 4 (5-15); BUN 16 mg/dL (7-18); BUN/Creat Ratio 23.8 RATIO (10-20); Calcium,Total 10.4 mg/dL (8.5-10.1); Chloride 103 mmol/L (98-107); Creatinine, Serum 0.67 mg/dL (0.55-1.02); EST Glomerular Filtration Rate 90 mL/min (>60); Est Glom Filt Rate - Afr Amer 109 mL/min (>60); Globulin 3.3 g/dL (2.2-4.2); Glucose 108 mg/dL (74-106); Potassium 4.1 mmol/L (3.5-5.1); Protein, Total 6.8 g/dL (6.4-8.2); Sodium Level 136 mmol/L (136-145); Troponin-I HS 13 pg/mL (3.0-54.0)
--- NOTE | 2023-08-08 01:15 | HP.PCM.HOS_ITS ---
HPI - General General Date of Admission: 08/08/23 Date of Service: 08/08/23 Chief Complaint: Weakness HPI Narrative CRISTOPHER WARREN, is a 78 F with history of CAD, hypertension, CKD, RA and gout to initially presented to the emergency department on morning of 08/07/2023 with worsening shoulder pain. She was diagnosed with a shoulder dislocation at that time. Underwent procedural sedation for closed reduction of right shoulder, however the reduction was unfortunately unsuccessful. She was then discharged home in the ED. Re-presented to the ED on the evening of 08/07 with worsening weakness and inability to perform ADLs at home. Patient seen at bedside in the ED, multiple family members present. Patient laying comfortably in bed, con versing normally, no acute distress. States she has minimal shoulder pain at this time. States that she normally ambulates around the home with a walker, but she is unable to use the walker right now due to her shoulder dislocation. Therefore, she is unable to get out of bed and do anything for self. She denies any fevers or chills. She denies any other pain or discomfort. No other acute concerns. Vitals and labs in ED were unremarkable. No imaging was done. [facility] Medical History Back pain CAD (coronary artery disease) Chronic kidney disease Frozen shoulder Gout Hyperlipemia Hypertension Hyponatremia Hypothyroidism Polyosteoarthritis Umbilical hernia Urinary incontinence Home Medications atorvastatin 80 mg tablet 80 mg PO QHS cholesterol 08/12/16 [History Last Taken 12/31/18] clopidogrel 75 mg tablet 75 mg PO DAILY anti platelet 08/12/16 [History Last Taken 12/31/18] levothyroxine 125 mcg tablet 125 mcg PO DAILY thyroid 08/12/16 [History Last Taken 12/31/18] lisinopril 40 mg tablet 40 mg PO DAILY blood pressure 08/12/16 [History Last Taken 12/31/18] nitroglycerin 0.4 mg sublingual tablet 0.4 mg sublingual Q5M PRN Chest Pain 08/12/16 [History Last Taken Unknown] metoprolol succinate 25 mg tablet,extended release 24 hr (Toprol XL) 25 mg PO DAILY blood pressure 01/01/19 [History Last Taken 12/31/18] HYDROcodone-acetaminophen 1 tab PO Q6H PRN PAIN 08/08/23 [History Last Taken Unknown] Vitamin D2 50,000 u PO .WEEKLY 08/08/23 [History Last Taken Unknown] Allergy/AdvReac Type Severity Reaction Status Date / Time Penicillins Allergy Swelling Verified 08/07/23 21:04 meperidine [From Demerol] AdvReac Vomiting Verified 08/07/23 21:04 thiopental AdvReac Vomiting Verified 08/07/23 21:04 [From sodium pentothal] Social History household members: none Smoking Status: Never smoker substance use type: does not use ROS Constitutional Constitutional: Reports weakness; Denies chills, fatigue or fever(s) Cardiovascular Cardiovascular: Denies chest pain Respiratory/Chest Respiratory/Chest: Denies cough Gastrointestinal Gastrointestinal: Denies abdominal pain Vital Signs Vital Signs Vital Signs: 08/07/23 21:02 08/07/23 23:01 08/08/23 00:35 Temperature 97.9 F Temperature Source Temporal Pulse Rate 77 Respiratory Rate 18 18 Respiratory Effort Normal Non-Labored Respiratory Pattern Normal Blood Pressure 135/74 H Blood Pressure Mean 94 Pulse Ox 99 Oxygen Delivery Method Room Air Weight Weight: 76.657 kg Body Mass Index (BMI) 27.2 Physical Exam Const alert, oriented x3 and no apparent distress Constitutional Narrative: Pleasant elderly female, laying comfortably in bed, conversing normally, no acute distress. General Appearance: cooperative and comfortable HEENT normocephalic, head/scalp atraumatic, hearing grossly normal bilaterally, nasal mucous membranes and turbinates normal and moist oral mucous membranes Eyes PERRL, EOMs intact bilaterally and conjunctivae normal Neck full ROM, no lymphadenopathy and supple Lymph Lymphatic: no lymphadenopathy noted Chest inspection of chest normal Resp normal respiratory effort, normal air movement, no use of accessory muscles and clear to auscultation bilaterally Cardio regular rate, regular rhythm, no murmurs and peripheral pulses 2+ throughout GI normal to inspection, nondistended, normoactive bowel sounds, soft to palpation, non-tender and non-distended Back/Spine normal ROM Extremity Extremity Narrative: Right shoulder sling in place. Skin no rashes or lesions noted Psych mental status grossly normal Results Lab / Micro Data 08/08/23 00:30 08/08/23 00:30 Labs: Laboratory Results - last 24 hr 08/08/23 00:30: WBC 9.2, RBC 3.99 L, Hgb 13.3, Hct 39.3, MCV 98.5, MCH 33.3 H, MCHC 33.8, RDW Std Deviation 54.4 H, RDW Coeff of Robin 15.0 H, Plt Count 265, MPV 8.9, Immature Gran % (Auto) 0.400, Neut % (Auto) 71.7 H, Lymph % (Auto) 17.1 L, Emm[place] % (Auto) 8.9, Eos % (Auto) 1.5, Baso % (Auto) 0.4, Absolute Neuts (auto) 6.6, Absolute Lymphs (auto) 1.58, Nucleated RBC % 0, Sodium 136, Potassium 4.1, Chloride 103, Carbon Dioxide 29.0, Anion Gap 4 L, BUN 16, Creatinine 0.67, Estim Creat Clear Calc 42.00, Est GFR (MDRD) Af Amer 109, Est GFR (MDRD) Non-Af 90, BUN/Creatinine Ratio 23.8 H, Glucose 108 H, Calcium 10.4 H, Total Bilirubin 1.00, AST 13 L, ALT 18, Alkaline Phosphatase 99, Troponin I High Sens 13, Total Protein 6.8, Albumin 3.5, Globulin 3.3, Albumin/Globulin Ratio 1.1 Assessment & Plan Assessment/Plan (1) Weakness: PLAN: Plan Patient is a 78-year-old female with history of CAD, hypertension, CKD, RA and gout to initially presented to the emergency department on morning of 08/07/2023 with worsening shoulder pain. She was diagnosed with a shoulder dislocation at that time. Underwent procedural sedation for closed reduction of right shoulder, however the reduction was unfortunately unsuccessful. She was then discharged home in the ED. Re-presented to the ED on the evening of 08/07 with worsening weakness and inability to perform ADLs at home. 1. Chronic debility with worsening weakness Patient has no chronic debility and uses a walker to ambulate at home. Unfortunately due to her shoulder injury, she is unable to use her walker and therefore unable to ambulate around the home or do anything for herself. ? PT/OT/case management consulted. Family reportedly called [facility] and there is a bed available there for her. We will defer to case management to assist with management for this. 2. Shoulder dislocation Known history of frozen shoulder. Unclear if dislocation was secondary to a fall at home or not. Unfortunately, attempt to reduce her shoulder under procedural sedation today was unsuccessful. Patient notably does report minimal pain at this time. ? PT/OT consulted. Sling in place. Tylenol as needed for pain control. Chronic medical conditions: ? Hypertension: Continue home lisinopril and metoprolol. ? CAD: Continue home Plavix and Lipitor. ? Hypothyroidism: Continue home Synthroid. DVT prophylaxis: Lovenox CODE STATUS: Full code, unverified Expected disposition: SNF, TBD Total clinical time spent by myself addressing the patient's medical issues, reviewing all the data, and collaborating with patient's care team: 40 minutes. Charges/Coding Visit Charges Inpatient E&M: 26874 Init Hosp L1
[2023-08-08 01:21] LABS: Bacteria 0 SEEN /hpf (None Seen); Mucous, Urine 0 SEEN /hpf (<or=2+); Red Blood Cells-Urine 0 SEEN /hpf (0-5); Squamous Epithelial Cells - UA 0 SEEN /hpf (5-10); White Blood Cells 0 SEEN /hpf (0-5)
[2023-08-08 01:22] LABS: Color, Urine Yellow (Yellow); Glucose, Dipstick Normal (Normal); Ketone-Dipstick Negative (Negative); Leukocyte Esterase-Dipstick Negative /ul (Negative); Nitrite-Dipstick Negative (Negative); Occult Blood-Urine Negative /ul (Negative); Protein-Dipstick Negative (Negative); Urine Bilirubin Dipstick Negative (Negative); Urine Clarity Clear (Clear); Urine Urobilinogen Normal (Normal)
[2023-08-08 01:41] VITALS: BP 134/67; PULSE 60; RESP 18; TEMP 36.6; O2SAT 97
[2023-08-08 02:50] VITALS: BMI 26.3
[2023-08-08 02:56] VITALS: BP 146/74; PULSE 65; RESP 18; TEMP 36.2; O2SAT 97
[2023-08-08] MEDS: Acetaminophen 325 MG Tablet 650 MG PO ×2 (05:36→21:43)
[2023-08-08] MEDS: Levothyroxine 125 MCG Tablet PO (05:36)
[2023-08-08 08:48] VITALS: BP 132/71; PULSE 72; RESP 18; TEMP 37.1; O2SAT 98
[2023-08-08] MEDS: Menthol/Lanolin/Calamine/Znox 113 GM Tube 1 APPLIC TOPICAL ×2 (08:51→21:39)
[2023-08-08 08:52] VITALS: PULSE 72
[2023-08-08] MEDS: Enoxaparin 40 MG/0.4 ML Syringe SC (08:52)
[2023-08-08] MEDS: Lisinopril 40 MG Tablet PO (08:52)
[2023-08-08] MEDS: Clopidogrel Bisulfate 75 MG Tablet PO (08:52)
[2023-08-08] MEDS: Metoprolol(XL)Succ 25 MG Tablet PO (08:52)
--- NOTE | 2023-08-08 09:12 | PCM.PN.HOSP ---
Reason for Visit Reason for Visit: Diagnoses Weakness (08/08/23) Subjective Subjective Patient is an 78-year-old female admitted with right shoulder pain as well as progressive generalized weakness Objective Data Objective Data Vital Signs: Vital Signs Temp Pulse Resp BP Pulse Ox O2 Del Method 98.7 F 72 18 132/71 H 98 Room Air 08/08/23 08:48 08/08/23 08:52 08/08/23 08:48 08/08/23 08:48 08/08/23 08:48 08/08/23 08:48 Oxygen Delivery Method Room Air Weight: 74 kg Body Mass Index (BMI) 26.3 Intake & Output: Intake and Output for Last 24 Hours 08/06/23 08/07/23 08/08/23 23:59 23:59 23:59 Output Total 0 / 0 Balance 0 / 0 Lab / Micro Data 08/08/23 00:30 08/08/23 00:30 Labs: Laboratory Results - last 24 hr 08/08/23 00:30: WBC 9.2, RBC 3.99 L, Hgb 13.3, Hct 39.3, MCV 98.5, MCH 33.3 H, MCHC 33.8, RDW Std Deviation 54.4 H, RDW Coeff of Robin 15.0 H, Plt Count 265, MPV 8.9, Immature Gran % (Auto) 0.400, Neut % (Auto) 71.7 H, Lymph % (Auto) 17.1 L, [place] % (Auto) 8.9, Eos % (Auto) 1.5, Baso % (Auto) 0.4, Absolute Neuts (auto) 6.6, Absolute Lymphs (auto) 1.58, Nucleated RBC % 0, Sodium 136, Potassium 4.1, Chloride 103, Carbon Dioxide 29.0, Anion Gap 4 L, BUN 16, Creatinine 0.67, Estim Creat Clear Calc 42.00, Est GFR (MDRD) Af Amer 109, Est GFR (MDRD) Non-Af 90, BUN/Creatinine Ratio 23.8 H, Glucose 108 H, Calcium 10.4 H, Total Bilirubin 1.00, AST 13 L, ALT 18, Alkaline Phosphatase 99, Troponin I High Sens 13, Total Protein 6.8, Albumin 3.5, Globulin 3.3, Albumin/Globulin Ratio 1.1 08/08/23 01:15: Urine Color Yellow, Urine Clarity Clear, Urine pH 6.0, Ur Specific [place] 1.020, Urine Protein Negative, Urine Glucose (UA) Normal, Urine Ketones Negative, Urine Occult Blood Negative, Urine Nitrite Negative, Urine Bilirubin Negative, Urine Urobilinogen Normal, Ur Leukocyte Esterase Negative, Urine RBC 0 SEEN, Urine WBC 0 SEEN, Ur Squamous Epith Cells 0 SEEN, Urine Bacteria 0 SEEN, Urine Mucus 0 SEEN Physical Exam Narrative GENERAL: cooperative HEENT: Atraumatic; normocephalic EYES; Anicteric, Normal Conjunctiva NECK; supple, normal thyroid, RESPIRATORY: Diminished to auscultation CARDIOVASCULAR: Regular S1 S2, GI: soft, normoactive bowel sounds, : No Renal angle tenderness; EXTREMITIES: No edema, no clubbing, MUSCULOSKELETAL: Right shoulder immobilized NEURO: Awake; no lateralizing signs. SKIN: No Rash PSYCH; Flat affect Assessment & Plan Assessment/Plan (1) Weakness: PLAN: Plan Patient is an 78-year-old female admitted with right shoulder pain as well as progressive generalized weakness 1. Physical debility ? Following right shoulder dislocation for which patient underwent an unsuccessful closed reduction under anesthesia. Presented back to the emergency department with worsening pain and inability to perform her ADLs. Admitted to regular nursing floor requested for PT OT eval and vp digital marketing social media and crm to assist with discharge planning 2. Right shoulder dislocation ? Management as discussed above 3. Hypertension - Blood pressure controlled, home medications continued with dose adjustment as needed 4. Coronary artery disease -With previous percutaneous intervention. Patient is currently on guideline directed medical therapy 5. Dyslipidemia -Patient is on statin therapy, continued at home dose 6. Hypothyroidism - Patient is on levothyroxine home dose continued 7. DVT prophylaxis SC Lovenox Time spent in the patient's overall evaluation,decision-making process, review of diagnostic data, adjustment of management, discussion with other providers, nursing nursing and ancillary staff involved in patient's care documentation, 35 Minutes Charges/Coding Visit Charges Inpatient E&M: 09291 Subs Hosp L2
--- NOTE | 2023-08-08 09:54 | CASEMGMT ---
Discharge Planning Referral sent to [facility] via [facility]. Melanie Sherman, Discharge Planning Asst.
--- NOTE | 2023-08-08 10:06 | CASEMGMT ---
Discharge Planning Patient has been accepted by [facility]. SW updated. Melanie Sherman, Discharge Planning Asst.
--- NOTE | 2023-08-08 11:27 | CASEMGMT ---
GLEN reviewed chart and noted patient was interested in [facility]. GLEN spoke with patient and confirmed this as well as let patient know she will stay at [facility] until her insurance approves her to go to [facility]. GLEN explained this could take a couple of days. GLEN asked Melanie patel/hal experience planning strategist to please send a referral to [facility]. Plan: [facility] pending insurance approval. Haydee RUIZ
--- NOTE | 2023-08-08 12:08 | RAD_ITS ---
STUDY: X-RAY - ABDOMEN/PELVIS REASON FOR EXAM: Female, 78 years old. Colonic ileus TECHNIQUE: AP supine and decubitus views of the abdomen and pelvis. COMPARISON: None. FINDINGS: Normal visualized lung bases. Gaseous distention of small bowel and colon without frankly dilated loops of small bowel. Distal colonic gas is confirmed. The visualized liver, spleen and kidneys are grossly normal in size and morphology. Normal soft tissue structures. Degenerative changes of the lumbar spine with scoliosis. Stable appearance of the right hip as compared to 10/24/2022. RAD/Abd Inc Decub and/or Erect IMPRESSION: Mild diffuse ileus. Nonobstructive bowel gas pattern. Electronically Signed: Dakota Barraza MD (Brooks) at 17:28 EDT ,
--- NOTE | 2023-08-08 13:30 | CASEMGMT ---
GLEN spoke with patient's daughter Mary Kay per her request. GLEN introduced self and role at [facility]. GLEN let Mary Kay know that a referral has been made to [facility]. GLEN explained patient will remain in the hospital until insurance approves patient which could take a couple of days. Mary Kay expressed understanding and thanked GLEN for speaking with her. Plan: [facility] pending insurance approval. Haydee RUIZ
[2023-08-08 14:55] VITALS: BP 114/66; PULSE 63; RESP 18; TEMP 36.7; O2SAT 99
--- NOTE | 2023-08-08 15:54 | CASEMGMT ---
Discharge Planning Updates sent to [facility]. Precert will be submitted today. Melanie Sherman, Discharge Planning Asst.
--- NOTE | 2023-08-08 16:16 | CASEMGMT ---
?Met with patient and her daughter to complete YI form. YI form explained to both who voiced understanding and signed form. Original form placed in pt?s chart and copy provided to patient. Melanie Sherman, Discharge Planning Asst.
[2023-08-08] MEDS: Atorvastatin Calcium 80 MG Tablet PO (21:39)
[2023-08-09 00:50] VITALS: BP 153/76; PULSE 71; RESP 16; TEMP 36.7; O2SAT 97
[2023-08-09 04:10] VITALS: BP 147/72; PULSE 69; RESP 16; TEMP 36.4; O2SAT 96
[2023-08-09] MEDS: Levothyroxine 125 MCG Tablet PO (05:15)
[2023-08-09 10:50] VITALS: BP 127/68; PULSE 61; RESP 16; TEMP 36.6; O2SAT 100
--- NOTE | 2023-08-09 10:51 | PCM.PN.HOSP ---
Reason for Visit Reason for Visit: Diagnoses Weakness (08/08/23) Subjective Subjective Patient seen still complains of pain in the right shoulder. Awaiting transfer to residential facility Objective Data Objective Data Vital Signs: Vital Signs Temp Pulse Resp BP Pulse Ox O2 Del Method 97.6 F L 69 16 147/72 H 96 Room Air 08/09/23 04:10 08/09/23 04:10 08/09/23 04:10 08/09/23 04:10 08/09/23 04:10 08/09/23 04:35 Oxygen Delivery Method Room Air Weight: 74 kg Body Mass Index (BMI) 26.3 Intake & Output: Intake and Output for Last 24 Hours 08/07/23 08/08/23 08/09/23 23:59 23:59 23:59 Intake Total 320 / 320 Output Total 0 / 450 650 / 650 Balance 0 / -250 -330 / -330 Lab / Micro Data 08/08/23 00:30 08/08/23 00:30 Radiography Diagnostic Testing: Radiology Impression Abdomen X-Ray 08/08/23 12:08 IMPRESSION: Mild diffuse ileus. Nonobstructive bowel gas pattern. Electronically Signed: Dakota Barraza MD (Brooks) at 17:28 EDT , Physical Exam Narrative GENERAL: cooperative HEENT: Atraumatic; normocephalic EYES; Anicteric, Normal Conjunctiva NECK; supple, normal thyroid, RESPIRATORY: Diminished to auscultation CARDIOVASCULAR: Regular S1 S2, GI: soft, normoactive bowel sounds, : No Renal angle tenderness; EXTREMITIES: No edema, no clubbing, MUSCULOSKELETAL: Right shoulder immobilized NEURO: Awake; no lateralizing signs. SKIN: No Rash PSYCH; Flat affect Assessment & Plan Assessment/Plan (1) Weakness: PLAN: Plan Patient is an 78-year-old female admitted with right shoulder pain as well as progressive generalized weakness 1. Physical debility ? Following right shoulder dislocation for which patient underwent an unsuccessful closed reduction under anesthesia. Presented back to the emergency department with worsening pain and inability to perform her ADLs. Admitted to regular nursing floor requested for PT OT eval and public health social worker to assist with discharge planning ? 08/09/2023 transfer to residential facility still pending 2. Right shoulder dislocation ? Management as discussed above 3. Hypertension - Blood pressure controlled, home medications continued with dose adjustment as needed 4. Coronary artery disease -With previous percutaneous intervention. Patient is currently on guideline directed medical therapy 5. Dyslipidemia -Patient is on statin therapy, continued at home dose 6. Hypothyroidism - Patient is on levothyroxine home dose continued 7. DVT prophylaxis SC Lovenox Time spent in the patient's overall evaluation,decision-making process, review of diagnostic data, adjustment of management, discussion with other providers, nursing nursing and ancillary staff involved in patient's care documentation, 35 Minutes Charges/Coding Visit Charges Inpatient E&M: 53589 Subs Hosp L2
[2023-08-09] MEDS: Menthol/Lanolin/Calamine/Znox 113 GM Tube 1 APPLIC TOPICAL (10:59)
[2023-08-09 11:00] VITALS: BP 127/68; PULSE 61
[2023-08-09] MEDS: Clopidogrel Bisulfate 75 MG Tablet PO (11:00)
[2023-08-09] MEDS: Lisinopril 40 MG Tablet PO (11:00)
[2023-08-09] MEDS: Enoxaparin 40 MG/0.4 ML Syringe SC (11:00)
[2023-08-09] MEDS: Metoprolol(XL)Succ 25 MG Tablet PO (11:00)
[2023-08-09 16:03] VITALS: BP 131/63; PULSE 71; RESP 16; TEMP 36.4; O2SAT 94
[2023-08-09 22:14] VITALS: BP 151/74; PULSE 77; RESP 14; TEMP 36.7; O2SAT 98
[2023-08-09] MEDS: Atorvastatin Calcium 80 MG Tablet PO (22:23)
[2023-08-10 05:43] VITALS: BP 115/71; PULSE 63; RESP 14; TEMP 36.5; O2SAT 97
[2023-08-10] MEDS: Levothyroxine 125 MCG Tablet PO (05:46)
--- NOTE | 2023-08-10 08:29 | PN.HOSP_ITS ---
Reason for Visit Reason for Visit: Diagnoses Weakness (08/08/23) Subjective Subjective No change in condition awaiting transfer to retirement facility Objective Data Objective Data Vital Signs: Vital Signs Temp Pulse Resp BP Pulse Ox O2 Del Method 97.7 F L 63 14 115/71 97 Room Air 08/10/23 05:43 08/10/23 05:43 08/10/23 05:43 08/10/23 05:43 08/10/23 05:43 08/10/23 07:59 Oxygen Delivery Method Room Air Weight: 74 kg Body Mass Index (BMI) 26.3 Intake & Output: Intake and Output for Last 24 Hours 08/08/23 08/09/23 08/10/23 23:59 23:59 23:59 Intake Total 380 / 380 60 / 60 Output Total 0 / 450 775 / 775 Balance 0 / -250 -395 / -395 60 / 60 Lab / Micro Data 08/08/23 00:30 08/08/23 00:30 Physical Exam Narrative GENERAL: cooperative HEENT: Atraumatic; normocephalic EYES; Anicteric, Normal Conjunctiva NECK; supple, normal thyroid, RESPIRATORY: Diminished to auscultation CARDIOVASCULAR: Regular S1 S2, GI: soft, normoactive bowel sounds, : No Renal angle tenderness; EXTREMITIES: No edema, no clubbing, MUSCULOSKELETAL: Right shoulder immobilized NEURO: Awake; no lateralizing signs. SKIN: No Rash PSYCH; Flat affect Assessment & Plan Assessment/Plan (1) Weakness: PLAN: Plan Patient is an 78-year-old female admitted with right shoulder pain as well as progressive generalized weakness 1. Physical debility ? Following right shoulder dislocation for which patient underwent an unsuccessful closed reduction under anesthesia. Presented back to the emergency department with worsening pain and inability to perform her ADLs. Admitted [facility] nursing floor requested for PT OT eval and social work coordinator to assist with discharge planning ? 08/09/2023 transfer to retirement facility still pending ?08/10/2023;No change in condition awaiting transfer to retirement facility 2. Right shoulder dislocation ? Management as discussed above 3. Hypertension - Blood pressure controlled, home medications continued with dose adjustment as needed 4. Coronary artery disease -With previous percutaneous intervention. Patient is currently on guideline directed medical therapy 5. Dyslipidemia -Patient is on statin therapy, continued at home dose 6. Hypothyroidism - Patient is on levothyroxine home dose continued 7. DVT prophylaxis SC Lovenox Time spent in the patient's overall evaluation,decision-making process, review of diagnostic data, adjustment of management, discussion with other providers, nursing nursing and ancillary staff involved in patient's care documentation, 35 Minutes Charges/Coding Visit Charges Inpatient E&M: 71734 Subs Hosp L2
[2023-08-10 10:26] VITALS: BP 115/63; PULSE 76; RESP 16; TEMP 36.8; O2SAT 98
[2023-08-10] MEDS: Menthol/Lanolin/Calamine/Znox 113 GM Tube 1 APPLIC TOPICAL (10:30)
[2023-08-10 10:31] VITALS: BP 115/63; PULSE 76
[2023-08-10] MEDS: Enoxaparin 40 MG/0.4 ML Syringe SC (10:31)
[2023-08-10] MEDS: Metoprolol(XL)Succ 25 MG Tablet PO (10:31)
[2023-08-10] MEDS: Clopidogrel Bisulfate 75 MG Tablet PO (10:31)
[2023-08-10] MEDS: Lisinopril 40 MG Tablet PO (10:31)
[2023-08-10 14:46] VITALS: BP 101/63; PULSE 78; RESP 16; TEMP 36.9; O2SAT 95
[2023-08-10 21:43] VITALS: BP 139/81; PULSE 76; RESP 14; TEMP 36.6; O2SAT 97
[2023-08-10] MEDS: Atorvastatin Calcium 80 MG Tablet PO (21:48)
[2023-08-11 03:41] VITALS: BP 94/58; PULSE 67; RESP 14; TEMP 36.4; O2SAT 97
[2023-08-11] MEDS: Levothyroxine 125 MCG Tablet PO (05:23)
--- NOTE | 2023-08-11 08:39 | PN.HOSP_ITS ---
Reason for Visit Reason for Visit: Diagnoses Weakness (08/08/23) Subjective Subjective No new issues overnight. Objective Data Objective Data Vital Signs: Vital Signs Temp Pulse Resp BP Pulse Ox O2 Del Method 36.4 C L 67 14 94/58 L 97 Room Air 08/11/23 03:41 08/11/23 03:41 08/11/23 03:41 08/11/23 03:41 08/11/23 03:41 08/11/23 03:41 Oxygen Delivery Method Room Air Weight: 74 kg Body Mass Index (BMI) 26.3 Intake & Output: Intake and Output for Last 24 Hours 08/09/23 08/10/23 08/11/23 23:59 23:59 23:59 Intake Total 380 / 380 630 / 630 120 / 120 Output Total 775 / 775 275 / 275 100 / 100 Balance -395 / -395 355 / 355 Lab / Micro Data 08/08/23 00:30 08/08/23 00:30 Physical Exam Const alert and no apparent distress Extremity Extremity Narrative: right arm in sling. Assessment & Plan Assessment/Plan (1) Weakness: PLAN: Pending SNF (2) Anterior dislocation of right shoulder: QUALIFIERS: Encounter type: subsequent encounter Qualified Code(s): S43.014D - Anterior dislocation of right humerus, subsequent encounter PLAN: atraumatic attempted reduction unsuccessful on 08/07 continue sling follow up with orthopaedics as outpt. PLAN: Plan Chronic condition * Hypertension- Blood pressure controlled, home medications continued with dose adjustment as needed * Coronary artery disease-With previous percutaneous intervention. Patient is currently on guideline directed medical therapy * Dyslipidemia-Patient is on statin therapy, continued at home dose * Hypothyroidism- Patient is on levothyroxine home dose continued DVT prophylaxis SC Lovenox Disposition: to SNF
--- NOTE | 2023-08-11 09:17 | CASEMGMT ---
Discharge Planning Auth has been received by [facility]. SW updated. Melanie Sherman, Discharge Planning Asst.
[2023-08-11 10:02] VITALS: BP 107/90; PULSE 81; RESP 16; TEMP 36.6; O2SAT 100
[2023-08-11] MEDS: Enoxaparin 40 MG/0.4 ML Syringe SC (10:09)
[2023-08-11] MEDS: Lisinopril 40 MG Tablet PO (10:09)
[2023-08-11 10:10] VITALS: BP 107/90; PULSE 81
[2023-08-11] MEDS: Metoprolol(XL)Succ 25 MG Tablet PO (10:10)
[2023-08-11] MEDS: Clopidogrel Bisulfate 75 MG Tablet PO (10:10)
[2023-08-11] MEDS: Menthol/Lanolin/Calamine/Znox 113 GM Tube 1 APPLIC TOPICAL (10:10)
--- NOTE | 2023-08-11 10:52 | CASEMGMT ---
SW called patient's daughter Mary Kay and let her know that insurance has approved patient to go to the long-term facility. GLEN told her SW will let her know if patient is going to be discharged today. Haydee RUIZ
--- NOTE | 2023-08-11 11:40 | TREXTCAR_ITS ---
Diet Diet Order/Speech Therapy: 08/08/23 02:50 Diet: Regular - General Food consistency:: Regular Liquid Consistency:: Regular/Thin Wound(s) coccyx: Wound Type: Pressure Injury Therapies Weight Bearing: Non weight bearing Extremity Affected:: Right Upper (wear sling) Physical Therapy: Eval and Treat Occupational Therapy: Eval and Treat Problem/Diagnosis (1) Weakness: Status: Acute Code(s): R53.1 - Weakness Plan: Pending SNF (2) Anterior dislocation of right shoulder: Status: Acute Code(s): S43.014A - Anterior dislocation of right humerus, initial encounter Plan: atraumatic attempted reduction unsuccessful on 08/07 continue sling follow up with orthopaedics as outpt. Plan Chronic condition * Hypertension- Blood pressure controlled, home medications continued with dose adjustment as needed * Coronary artery disease-With previous percutaneous intervention. Patient is currently on guideline directed medical therapy * Dyslipidemia-Patient is on statin therapy, continued at home dose * Hypothyroidism- Patient is on levothyroxine home dose continued DVT prophylaxis SC Lovenox Disposition: to SNF Allergies/Procedures Done in Hospital Allergies Penicillins Allergy (Verified 08/07/23 21:04) Swelling meperidine [From Demerol] Adverse Reaction (Verified 08/07/23 21:04) Vomiting thiopental [From sodium pentothal] Adverse Reaction (Verified 08/07/23 21:04) Vomiting Procedures: None Type of Care/Length of Stay Estimated LOS: Convalescent Care Less Than 30 days Type of Care Needed: Skilled Rehab Potential: Fair Prognosis: Good Additional Orders/Day of Discharge Day of Discharge: 08/11/23 Dietary and Speech Recommendations Dietitian Recommendations/Changes: continue regular diet Discharge Plan Admission Admit Date/Time: 08/08/23 01:31 Primary Reason for Your Visit: right dislocated shoulder Attending Provider: Price Freeman Primary Care Provider: Care Physician,No Primary Consulting Providers: Royce Nicholas; Kyere Montiel Discharge Orders/Prescriptions Prescriptions: New acetaminophen 325 mg Tablet 650 mg PO Q6H PRN PRN (Reason: Pain 1-10 Or Fever>100.7) Qty: 0 0RF Continued atorvastatin 80 MG tablet 80 mg PO QHS Patient Comments: cholesterol clopidogrel 75 MG tablet 75 mg PO DAILY Patient Comments: anti-platelet levothyroxine 125 MCG tablet 125 mcg PO DAILY Patient Comments: thyroid nitroglycerin 0.4 MG tablet 0.4 mg sublingual Q5M PRN (Reason: Chest Pain) Patient Comments: chest pain lisinopril 40 MG tablet 40 mg PO DAILY Patient Comments: blood pressure metoprolol succinate [Toprol XL] 25 MG tablet extended release 24 hr 25 mg PO DAILY Vitamin D2 capsule 50,000 u PO .WEEKLY Discontinued HYDROcodone-acetaminophen 1 tab PO Q6H PRN Referrals / Follow Up: Neal Dunham DO [Med Staff - Active Staff] - Within 2 Weeks Care Physician,No Primary [Primary Care Provider] - Disposition Disposition (needs filled in before D/C Order can be placed): [facility] Facility (2) Anterior dislocation of right shoulder Qualifiers: Encounter type: subsequent encounter Qualified Code(s): S43.014D - Anterior dislocation of right humerus, subsequent encounter
--- NOTE | 2023-08-11 11:44 | DS.PCM_ITS ---
Providers Date of Admission: 08/08/23 Primary Care Physician: No Primary Care Phys Reason For Visit: WEAKNESS Diagnosis Discharge Diagnosis (1) Weakness: Status: Acute Code(s): R53.1 - Weakness Plan: Pending SNF (2) Anterior dislocation of right shoulder: Status: Acute Code(s): S43.014A - Anterior dislocation of right humerus, initial encounter Qualifiers: Encounter type: subsequent encounter Qualified Code(s): S43.014D - Anterior dislocation of right humerus, subsequent encounter Plan: atraumatic attempted reduction unsuccessful on 08/07 continue sling follow up with orthopaedics as outpt. Plan Chronic condition * Hypertension- Blood pressure controlled, home medications continued with dose adjustment as needed * Coronary artery disease-With previous percutaneous intervention. Patient is currently on guideline directed medical therapy * Dyslipidemia-Patient is on statin therapy, continued at home dose * Hypothyroidism- Patient is on levothyroxine home dose continued DVT prophylaxis SC Lovenox Disposition: to SNF Medications at Discharge Home Medications atorvastatin 80 mg tablet 80 mg PO QHS cholesterol 08/12/16 clopidogrel 75 mg tablet 75 mg PO DAILY anti platelet 08/12/16 levothyroxine 125 mcg tablet 125 mcg PO DAILY thyroid 08/12/16 lisinopril 40 mg tablet 40 mg PO DAILY blood pressure 08/12/16 nitroglycerin 0.4 mg sublingual tablet 0.4 mg sublingual Q5M PRN Chest Pain 08/12/16 metoprolol succinate 25 mg tablet,extended release 24 hr (Toprol XL) 25 mg PO DAILY blood pressure 01/01/19 Vitamin D2 50,000 u PO .WEEKLY 08/08/23 acetaminophen 325 mg tablet 650 mg (2 x 325 mg) PO Q6H PRN PRN Pain 1-10 Or Fever>100.7 #0 tabs 08/11/23 Hospital Course Operations None Procedures None Summary of Care Provided Minutes Spent on Discharge: 32 Hospital Course: Patient presented with right shoulder pain. Patient was found to have a disloc ation of her shoulder. Attempted reduction was performed in the emergency room but was unsuccessful. Dr. Dunham, of orthopedics, was contacted through the emergency room. Just recommended outpatient follow-up. Patient is unable to care for herself so she presented back to the emergency room. Patient has been approved to go to a long-term facility on discharge today. Patient will wear sling on her right upper extremity and follow-up with orthopedics in the coming weeks. Weight / BMI Weight Weight: 74 kg Body Mass Index (BMI) 26.3 ABG / Lab / Microbiology Data 08/08/23 00:30 08/08/23 00:30 Meaningful Use Info Meaningful Use Diagnoses (Choose all that apply): None applicable Discharge Plan Admission Admit Date/Time: 08/08/23 01:31 Primary Reason for Your Visit: right dislocated shoulder Attending Provider: Price Freeman Primary Care Provider: Care Physician,No Primary Consulting Providers: Royce Nicholas; Kyree Montiel Discharge Orders/Prescriptions Prescriptions: New acetaminophen 325 mg Tablet 650 mg PO Q6H PRN PRN (Reason: Pain 1-10 Or Fever>100.7) Qty: 0 0RF Continued atorvastatin 80 MG tablet 80 mg PO QHS Patient Comments: cholesterol clopidogrel 75 MG tablet 75 mg PO DAILY Patient Comments: anti-platelet levothyroxine 125 MCG tablet 125 mcg PO DAILY Patient Comments: thyroid nitroglycerin 0.4 MG tablet 0.4 mg sublingual Q5M PRN (Reason: Chest Pain) Patient Comments: chest pain lisinopril 40 MG tablet 40 mg PO DAILY Patient Comments: blood pressure metoprolol succinate [Toprol XL] 25 MG tablet extended release 24 hr 25 mg PO DAILY Vitamin D2 capsule 50,000 u PO .WEEKLY Discontinued HYDROcodone-acetaminophen 1 tab PO Q6H PRN Referrals / Follow Up: Neal Dunham DO [Med Staff - Active Staff] - Within 2 Weeks Care Physician,No Primary [Primary Care Provider] - Disposition Disposition (needs filled in before D/C Order can be placed): Nursing Home Facility Charges/Coding Visit Charges Inpatient E&M: 46134 Disch Hosp >30min
--- NOTE | 2023-08-11 13:08 | CASEMGMT ---
Discharge Planning Discharge orders, signed med list and transport time sent to [facility] via [facility]. [facility] will transport patient by cot at 2:30p. Nursing, , patients and daughter updated. Melanie Sherman, Discharge Planning Asst.
--- NOTE | 2023-08-11 13:22 | CASEMGMT ---
SW completed a PASRR for patient in [facility] system. Patient will be discharged to [facility] under skilled level of care on a PASRR. Haydee RUIZ
--- NOTE | 2023-08-11 13:32 | PHA.DC_ITS ---
Pharmacy [facility] Pharm[facility] Service has performed discharge medication reconciliation and counseling for this patient. The patient's discharge medication list was reviewed for discrepancies and discrepancies were resolved. The patient was counseled on the following discharge medications and changes in medications for homegoing were reviewed. The Reason for Use, instructions for use, and potential side effects were reviewed for all new medications. The patient's questions regarding all of their medications were answered. 1. Acetaminophen 650 mg Po Q6H PRN p/f The patient was able to verbally demonstrate an understanding of their discharge medications. Medications at Discharge Home Medications atorvastatin 80 mg tablet 80 mg PO QHS cholesterol 08/12/16 clopidogrel 75 mg tablet 75 mg PO DAILY anti platelet 08/12/16 levothyroxine 125 mcg tablet 125 mcg PO DAILY thyroid 08/12/16 lisinopril 40 mg tablet 40 mg PO DAILY blood pressure 08/12/16 nitroglycerin 0.4 mg sublingual tablet 0.4 mg sublingual Q5M PRN Chest Pain 08/12/16 metoprolol succinate 25 mg tablet,extended release 24 hr (Toprol XL) 25 mg PO DAILY blood pressure 01/01/19 Vitamin D2 50,000 u PO .WEEKLY 08/08/23 acetaminophen 325 mg tablet 650 mg (2 x 325 mg) PO Q6H PRN PRN Pain 1-10 Or Fever>100.7 #0 tabs 08/11/23
[2023-08-11 14:00] VITALS: BP 140/88; PULSE 105; RESP 16; TEMP 36.4; O2SAT 98
--- NOTE | 2023-08-11 14:42 | NURSING ---
Report called to CAITLYN Butts at [facility] at [id number].
== END 2023-08-11 14:37 | disposition skilled nursing facility (03) ==
LOC: ED 08-08 01:11 → PCU 08-08 01:52
PROVIDERS: Admitting Provider Hospitalist; Emergency Provider Emergency Medicine; Referring Provider Hospitalist
DX: R53.1 Weakness (principal); N18.9 Chronic kidney disease, unspecified; Z79.02 Long term (current) use of antithrombotics/antiplatelets; R53.81 Other malaise; I25.10 Atherosclerotic heart disease of native coronary artery without angina pectoris; I12.9 Hypertensive chronic kidney disease with stage 1 through stage 4 chronic kidney disease, or unspecified chronic kidney disease; E78.5 Hyperlipidemia, unspecified; Z79.899 Other long term (current) drug therapy; E03.9 Hypothyroidism, unspecified; Z79.890 Hormone replacement therapy; S43.014D Anterior dislocation of right humerus, subsequent encounter; X58.XXXD Exposure to other specified factors, subsequent encounter; R94.31 Abnormal electrocardiogram [ECG] [EKG]
CPT/HCPCS: 74019; 80053; 81001; 84484; 85025; 93005; 96372; 97110; 97162; 97166; 97530; 97802; 99221; 99283; A4216; G0378

== ENCOUNTER → 2023-09-01 | Outpatient (CLI) | payer MEDICARE, SELFPAY ==
--- NOTE | 2023-09-01 12:25 | RAD_ITS ---
INDICATION: Spondylosis without myelopathy or radiculopathy, lumbar region EXAMINATION/TECHNIQUE: X-RAY - XR Spine Lumbar 2 or 3 Views COMPARISON: Abdominal radiograph 08/08/2023. Abdominal CT 07/14/2020. FINDINGS: 3 views of the lumbar spine. Severe multilevel thoracolumbar level degenerative change with focal levoscoliosis again noted. No obvious acute abnormality. Right total hip arthroplasty, only partially imaged, although no obvious hardware complication. SOFT TISSUES: Unremarkable. RAD/Lumbar Spine 2 or 3 Views IMPRESSION: Stable severe multilevel thoracolumbar degenerative change with focal levoscoliosis. No obvious acute abnormality. If there is persistent clinical concern for spine fracture and this is a trauma patient, recommend dedicated lumbar spine CT. Electronically Signed: David Hedrick MD at 23:20 EDT ,
== END | disposition home or self-care (01) ==
PROVIDERS: PCP Internal Medicine; Referring Provider Anesthesiology; Visit Provider Anesthesiology
DX: M47.816 Spondylosis without myelopathy or radiculopathy, lumbar region (principal)
CPT/HCPCS: 72100

== ENCOUNTER → 2023-09-04 | Outpatient (REF) | payer MEDICARE, SELFPAY ==
[2023-09-04 09:48] LABS: Absolute Lymphocyte Count 1.83 X10^3/uL (0.83-4.51); Absolute Neutrophil Count 5.4 X10^3/uL (2.0-7.7); Basophil# 0.06 X10^3/uL; Basophil% 0.7 % (0-1); Eosinophils% 3.7 % (0-5); Hematocrit 35.1 % (37-47); Hemoglobin 11.9 g/dL (12.0-15.0); Lymphocyte # 1.83 X10^3/ul (0.83-4.51); Lymphocyte % 22.5 % (19-41); Mean Corp Hgb Conc 33.9 g/dL (32-36); Mean Corpuscular Hgb 33.7 pg (27.0-32.0); Mean Corpuscular Volume 99.4 fL (81-99); Mean Platelet Vol. 10.6 fl (6.2-12.0); Monocyte# 0.57 X10^3/uL; NRBC Flagged by Analyzer 0 % (0-5); Neutrophil # 5.36 X10^3/uL (2.7-7.7); Neutrophil % 65.9 % (47-70); Platelet Count 192 K/mm3 (150-450); RBC Distribution Width CV 14.8 % (11.6-14.6); RBC Distribution Width SD 54.2 fl (35.1-43.9); Red Blood Count 3.53 M/mm3 (4.2-5.4); White Blood Count 8.1 K/mm3 (4.4-11.0)
[2023-09-04 10:22] LABS: Anion Gap 6 (5-15); BUN 21 mg/dL (7-18); BUN/Creat Ratio 31.6 RATIO (10-20); Calcium,Total 9.7 mg/dL (8.5-10.1); Chloride 102 mmol/L (98-107); Creatinine, Serum 0.66 mg/dL (0.55-1.02); EST Glomerular Filtration Rate 91 mL/min (>60); Est Glom Filt Rate - Afr Amer 110 mL/min (>60); Glucose 88 mg/dL (74-106); Sodium Level 137 mmol/L (136-145)
== END ==
LOC: OLS.SW 05:00
PROVIDERS: PCP Internal Medicine; Visit Provider Family Medicine
DX: R68.89 Other general symptoms and signs (principal); Z13.228 Encounter for screening for other metabolic disorders; Z79.899 Other long term (current) drug therapy
CPT/HCPCS: 36415; 80048; 85025